=== PATIENT | male | born 1950 | race Hispanic/Latino ===

== ENCOUNTER 2018-09-12 09:30 | Observation (INO) | payer MEDICARE ==
[~2018-09-12] VITALS: Ht 162.6 cm; Wt 77.9 kg
[~2018-09-12 09:30] MED LIST: FERR325T22 PO; PANT40TA25 PO
[2018-09-13 09:16] LABS: EOSINOPHILS % (AUTO) 3.7 % (0.0-8.0); HEMATOCRIT 37.3 % (42-54); LYMPHOCYTES % (AUTO) 34.3 % (21.0-51.0); MEAN CORPUSCULAR HEMOGLOBIN 31.2 pg (27.0-33.0); MEAN CORPUSCULAR HGB CONC 33.3 g/dL (32.0-36.0); MEAN CORPUSCULAR VOLUME 93.9 fL (79-99); MONOCYTES % (AUTO) 15.8 % (3.0-13.0); NEUTROPHILS % (AUTO) 45.2 % (40.0-77.0); PLATELET COUNT (AUTO) 155 K/uL (130-400); RED BLOOD CELL COUNT(AUTO) 3.97 MIL/uL (4.50-6.20); RED CELL DISTRIBUTION WIDTH 19.8 % (11.0-15.5); WHITE BLOOD COUNT (AUTO) 5.7 K/uL (4.8-10.8)
[2018-09-13 09:29] LABS: INR 0.95 (0.85-1.15); PARTIAL THROMBOPLASTIN TIME 30.1 SEC (26.3-35.5)
[2018-09-13 09:36] LABS: ALBUMIN 3.8 g/dL (3.5-5.0); BILIRUBIN,TOTAL 0.6 mg/dL (0.2-1.0); CREATININE 5.8 mg/dL (0.5-1.5); POTASSIUM 5.3 mmol/L (3.5-5.1); TOTAL PROTEIN, SERUM 8.3 g/dL (6.0-8.3)
[2018-09-13 10:16] VITALS: BP 131/69
[2018-09-13] MEDS ORDERED: ATOR10TA69 PO (11:36)
[2018-09-13] MEDS ORDERED: FURO40TA5 PO (11:36)
[2018-09-13] MEDS ORDERED: HYDR-4153 PO (11:36)
[2018-09-13] MEDS ORDERED: AURYXIA PO (11:36)
[2018-09-13] MEDS ORDERED: CARV12.511 PO (11:36)
[2018-09-13] MEDS ORDERED: LOSA25TA41 PO (11:36)
[2018-09-13] MEDS ORDERED: IBUP-2070 PO (11:36)
--- NOTE | 2018-09-13 11:39 | NUR ---
ABNORMAL EKG NOTIFIED SHIVA (ANESTHESIOLOGIST) OF ABNORMAL EKG AND MEDICAL HISTORY. OK TO PROCEED WITH PROCEDURE SCHEDULED PER ANESTHESIOLOGIST.
[2018-09-14] VITALS (20 sets, daily range): BP systolic 111–189; BP diastolic 54–90
[2018-09-14] MEDS ORDERED: SODIUM CHLORIDE 0.9% 1000ML 1,000 ML IV ONE (06:04)
--- NOTE | 2018-09-14 06:20 | NUR ---
PUPIL OCCURRENCE: LEFT EYE PUPIL CLOUDY IMAGE OVER ENTIRE PUPIL. 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
[2018-09-14] MEDS: CEFAZOLIN SODIUM 1 GM VIAL ONE ×2 (06:21→14:15)
[2018-09-14] MEDS ORDERED: MIDAZOLAM HCL 1 MG/ML 2ML VIAL ONE (06:23)
[2018-09-14] MEDS ORDERED: ROCURONIUM 10MG/1ML SYR 10 MG/ML ML ONE (06:23)
[2018-09-14] MEDS ORDERED: PROPOFOL 10 MG/ML 20ML VIAL IV ONE (06:23)
[2018-09-14] MEDS ORDERED: LIDOCAINE PF 2% 5ML ABBOJECT ONE (06:23)
[2018-09-14] MEDS ORDERED: FENTANYL CITRATE PF 50 MCG/1 ML 2ML VIAL ONE (06:24)
--- NOTE | 2018-09-14 06:30 | NUR ---
POTENTIAL FOR INFECTION: SHAVED LEFT UPPER EXTREMITY PER KAM FIORE FOLLOWED BY WIPING WITH GINA: 2% CHLORHEXIDINE GLUCONATE CLOTH PATIENTS PRE-OP SKIN PREP.
[2018-09-14] MEDS ORDERED: ROPIVACAINE 0.5% 5MG/ML 30ML IJ ONE ×2 (06:50)
[2018-09-14] MEDS ORDERED: BUPIVACAINE/PF 0.5% 30ML VIAL ONE (07:13)
[2018-09-14] MEDS ORDERED: PAPAVERINE HCL 30 MG/ML 2ML VIAL ONE (07:51)
[2018-09-14] MEDS ORDERED: PHENYLEPHRINE HCL 10 MG/ML 1ML VIAL IV ONE (08:17)
[2018-09-14] MEDS ORDERED: EPHEDRINE SULFATE 50 MG/ML AMPULE ONE (08:25)
[2018-09-14] MEDS ORDERED: GLYCOPYRROLATE 1 MG/5 ML SYRINGE ONE (08:29)
[2018-09-14] MEDS ORDERED: SODIUM CHLORIDE 0.9% 10 ML VIAL ONE (08:29)
[2018-09-14] MEDS ORDERED: NEOSTIGMINE 5MG/5ML SYR IV ONE (08:29)
[2018-09-14] MEDS ORDERED: ONDANSETRON HCL 4 MG/2 ML VIAL ONE (08:57)
[2018-09-14] MEDS ORDERED: MEPERIDINE-PF 25 MG/ML SYG ONE ×2 (09:24→09:31)
--- NOTE | 2018-09-14 10:20 | NUR ---
RECEIVE PT RECEIVED FROM PACU VIA STRETCHER AWAKE ALERT ORIENTED X3. PT COMPLAINS OF NAUSEA, NO VOMITING NOTED. NO OTHER COMPLAINTS MADE. DRESSING TO LEFT UPPER ARM DRY AND INTACT, SITE SOFT, NO BLEEDING NO HEMATOMA NOTED. ABDOMEN SOFT, INCISION TO MID ABDOMEN INTACT, WITH DERMABOND, NO OOZING OR BLEEDING NOTED, NO SWELLING OR REDNESS NOTED. DRESSING TO LEFT ABDOMEN DRY AND INTACT, NO OOZING NOTED. ICE CHIPS OFFERED TO PT. Addendum: 09/14/18 at 1243 by GERARDO DOWLING RN RN CON'T: WILL CONTINUE TO MONITOR PT. CALL [facility] WITHIN REACH. WILL CALL FOR FAMILY TO COME IN TO ROOM.
--- NOTE | 2018-09-14 10:35 | NUR ---
ASSESS PT TOLERATING ICE CHIPS WELL. PT STATES HE IS NOT NAUSEATED ANYMORE. WILL CONTINUE TO MONITOR PT. DAUGHTER IN LAW IN ROOM.
--- NOTE | 2018-09-14 11:18 | NUR ---
NOTE PT FOR OBSERVATION TO MED SURG FLOOR. ORDERS OBTAINED FROM DR. BULLARD PER ROMAN PAUL,LEE ANN. FORKLIFT MECHANIC NOTIFIED, WAITING FOR ROOM.
--- NOTE | 2018-09-14 12:00 | NUR ---
REPORT REPORT GIVEN TO TALIA EWING.
--- NOTE | 2018-09-14 12:10 | NUR ---
TRANSFER PT TRANSFERRED TO ROOM 311. PT STABLE. NO COMPLAINTS MADE. ABDOMEN REMAINS SOFT. DRESSINGS TO LEFT UPPER ARM AND LEFT ABDOMEN REMAINS DRY AND INTACT, NO OOZING NOTED, INCISION MID ABDOMEN REMAINS INTACT, NO OOZING NOTED. PT RECEIVED BY TALIA EWING
--- NOTE | 2018-09-14 12:15 | NUR ---
TRANSFER RECEIVED REPORT FROM LEE ANN AVINA ( DAY PATIENT ). PATIENT TO RECEIVE DIALYSIS THEN MAY BE DISCHARGED PER DR. BULLARD. 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 PATIENT S/P PERITONEAL CATHETER REMOVAL AND LEFT AV FISTULA CREATION BY DR. BULLARD. PATIENT STABLE AT THIS TIME. ALL DRESSINGS DRY AND INTACT.
[2018-09-14] MEDS ORDERED: HEPARIN SODIUM 5000UNIT/ML 1ML VIAL ONE (17:22)
--- NOTE | 2018-09-14 21:00 | NUR ---
DISCHARGE-PATIENT COMPLETED DIALYSIS. DR. BULLARD WAS CALLED TO MAKE AWARE AND GAVE DISCHARGE ORDER. DISCHARGE INSTRUCTIONS EXPLAINED AND GIVEN TO PATIENT AND HIS DAUGHTER IN LAW. IV LINE WAS REMOVED. PATIENT AWAKE AND ALERT, NO ACUTE DISTRESS NOTED.
== END 2018-09-14 21:00 | disposition home or self-care (01) ==
LOC: EDSTATUS 09:30 → DAHIP 09-14 05:47 → 3BH 09-14 12:20
PROVIDERS: ADMIT Student in an Organized Health Care Education/Training Program; ATTEND Student in an Organized Health Care Education/Training Program
DX: I12.0 Hypertensive chronic kidney disease with stage 5 chronic kidney disease or end stage renal disease (principal); N18.6 End stage renal disease; D64.9 Anemia, unspecified; E11.21 Type 2 diabetes mellitus with diabetic nephropathy; E11.22 Type 2 diabetes mellitus with diabetic chronic kidney disease; K21.9 Gastro-esophageal reflux disease without esophagitis; E78.5 Hyperlipidemia, unspecified; E87.5 Hyperkalemia; H54.62 Unqualified visual loss, left eye, normal vision right eye; I25.10 Atherosclerotic heart disease of native coronary artery without angina pectoris; I42.9 Cardiomyopathy, unspecified; Z90.89 Acquired absence of other organs; Z91.19 Patient's noncompliance with other medical treatment and regimen; Z95.1 Presence of aortocoronary bypass graft; Z99.2 Dependence on renal dialysis; Z79.899 Other long term (current) drug therapy; Z88.8 Allergy status to other drugs, medicaments and biological substances; Z90.49 Acquired absence of other specified parts of digestive tract
CPT/HCPCS: 36590; 36821; G0257; 36415; 80053; 82948; 84132; 85025; 85610; 85730; 86850; 86900; 86901; 88300; 90935; 93005; A4606; G0378; J0690; J1644; J2001; J2175; J2250; J2370; J2405; J2440; J2704; J2710; J2795; J3010; J3490; J7030

== ENCOUNTER → 2018-12-28 | Outpatient (CLI) | payer MEDICARE ==
[~2018-12-28] MED LIST changes: +ATOR10TA69 PO; +AURYXIA PO; +CARV12.511 PO; +FURO40TA5 PO; +HONEY 1 APPL/ML TUBE TP ONE; +HYDR-4153 PO; +IBUP-2070 PO; +LOSA25TA41 PO
[2018-12-28 12:22] VITALS: BP 101/58
== END | disposition home or self-care (01) ==
LOC: WHH 09:45
PROVIDERS: ATTEND Podiatrist Foot & Ankle Surgery
DX: E11.621 Type 2 diabetes mellitus with foot ulcer (principal); L97.512 Non-pressure chronic ulcer of other part of right foot with fat layer exposed; E11.22 Type 2 diabetes mellitus with diabetic chronic kidney disease; N18.6 End stage renal disease; E11.21 Type 2 diabetes mellitus with diabetic nephropathy; I12.0 Hypertensive chronic kidney disease with stage 5 chronic kidney disease or end stage renal disease; I25.10 Atherosclerotic heart disease of native coronary artery without angina pectoris; I42.9 Cardiomyopathy, unspecified; K21.9 Gastro-esophageal reflux disease without esophagitis; E78.5 Hyperlipidemia, unspecified; H54.62 Unqualified visual loss, left eye, normal vision right eye; Z90.49 Acquired absence of other specified parts of digestive tract; Z88.8 Allergy status to other drugs, medicaments and biological substances; Z99.2 Dependence on renal dialysis; Z95.1 Presence of aortocoronary bypass graft
CPT/HCPCS: 11042; 11045; 82948; A4450; A6209

== ENCOUNTER → 2019-01-02 | Outpatient (CLI) | payer MEDICARE ==
[~2019-01-02] MED LIST changes: -HONEY 1 APPL/ML TUBE TP ONE
== END | disposition home or self-care (01) ==
LOC: WHH 09:45
PROVIDERS: ATTEND Family Medicine
DX: E11.621 Type 2 diabetes mellitus with foot ulcer (principal); L97.521 Non-pressure chronic ulcer of other part of left foot limited to breakdown of skin; E11.22 Type 2 diabetes mellitus with diabetic chronic kidney disease; I12.0 Hypertensive chronic kidney disease with stage 5 chronic kidney disease or end stage renal disease; N18.6 End stage renal disease; E11.21 Type 2 diabetes mellitus with diabetic nephropathy; I25.10 Atherosclerotic heart disease of native coronary artery without angina pectoris; I42.9 Cardiomyopathy, unspecified; E78.5 Hyperlipidemia, unspecified; K21.9 Gastro-esophageal reflux disease without esophagitis; H54.62 Unqualified visual loss, left eye, normal vision right eye; Z90.49 Acquired absence of other specified parts of digestive tract; Z95.1 Presence of aortocoronary bypass graft; Z88.8 Allergy status to other drugs, medicaments and biological substances; Z99.2 Dependence on renal dialysis
CPT/HCPCS: 82948; A6209; G0463

== ENCOUNTER → 2019-01-04 | Outpatient (CLI) | payer MEDICARE ==
[~2019-01-04] MED LIST changes: +LIDOCAINE HCL 1% 20 ML VIAL MISC ONE; +LIDOCAINE HCL 2% JELLY 5 ML TP ONE
[2019-01-04 13:51] VITALS: BP 110/63
== END | disposition home or self-care (01) ==
LOC: WHH 09:25
PROVIDERS: ATTEND Podiatrist Foot & Ankle Surgery
DX: T87.89 Other complications of amputation stump (principal); E11.621 Type 2 diabetes mellitus with foot ulcer; L97.512 Non-pressure chronic ulcer of other part of right foot with fat layer exposed; L97.521 Non-pressure chronic ulcer of other part of left foot limited to breakdown of skin; E11.22 Type 2 diabetes mellitus with diabetic chronic kidney disease; I12.0 Hypertensive chronic kidney disease with stage 5 chronic kidney disease or end stage renal disease; N18.6 End stage renal disease; E11.21 Type 2 diabetes mellitus with diabetic nephropathy; I25.10 Atherosclerotic heart disease of native coronary artery without angina pectoris; I42.9 Cardiomyopathy, unspecified; E78.5 Hyperlipidemia, unspecified; K21.9 Gastro-esophageal reflux disease without esophagitis; H54.62 Unqualified visual loss, left eye, normal vision right eye; Z90.49 Acquired absence of other specified parts of digestive tract; Z95.1 Presence of aortocoronary bypass graft; Z88.8 Allergy status to other drugs, medicaments and biological substances; Y83.5 Amputation of limb(s) as the cause of abnormal reaction of the patient, or of later complication, without mention of misadventure at the time of the procedure
CPT/HCPCS: 11042; 11045; 87070; 87077; 87186; A6209

== ENCOUNTER → 2019-01-11 | Outpatient (CLI) | payer MEDICARE ==
[~2019-01-11] MED LIST changes: -LIDOCAINE HCL 1% 20 ML VIAL MISC ONE; -LIDOCAINE HCL 2% JELLY 5 ML TP ONE
[2019-01-11 14:09] VITALS: BP 122/70
== END | disposition home or self-care (01) ==
LOC: WHH 09:40
PROVIDERS: ATTEND Podiatrist Foot & Ankle Surgery
DX: E11.621 Type 2 diabetes mellitus with foot ulcer (principal); L97.512 Non-pressure chronic ulcer of other part of right foot with fat layer exposed; L97.421 Non-pressure chronic ulcer of left heel and midfoot limited to breakdown of skin; E11.22 Type 2 diabetes mellitus with diabetic chronic kidney disease; I12.0 Hypertensive chronic kidney disease with stage 5 chronic kidney disease or end stage renal disease; N18.6 End stage renal disease; I25.10 Atherosclerotic heart disease of native coronary artery without angina pectoris; I42.9 Cardiomyopathy, unspecified; E78.5 Hyperlipidemia, unspecified; K21.9 Gastro-esophageal reflux disease without esophagitis; H54.62 Unqualified visual loss, left eye, normal vision right eye; Z99.2 Dependence on renal dialysis; Z95.1 Presence of aortocoronary bypass graft; Z90.49 Acquired absence of other specified parts of digestive tract; Z88.8 Allergy status to other drugs, medicaments and biological substances
CPT/HCPCS: 11042; 11045; A4649; A6209; L3260

== ENCOUNTER → 2019-01-18 | Outpatient (CLI) | payer MEDICARE ==
[2019-01-18 13:35] VITALS: BP 150/90
== END | disposition home or self-care (01) ==
LOC: WHH 09:45
PROVIDERS: ATTEND Podiatrist Foot & Ankle Surgery
DX: E11.621 Type 2 diabetes mellitus with foot ulcer (principal); L97.516 Non-pressure chronic ulcer of other part of right foot with bone involvement without evidence of necrosis; L97.421 Non-pressure chronic ulcer of left heel and midfoot limited to breakdown of skin; E11.22 Type 2 diabetes mellitus with diabetic chronic kidney disease; I12.0 Hypertensive chronic kidney disease with stage 5 chronic kidney disease or end stage renal disease; N18.6 End stage renal disease; I25.10 Atherosclerotic heart disease of native coronary artery without angina pectoris; I42.9 Cardiomyopathy, unspecified; E78.5 Hyperlipidemia, unspecified; K21.9 Gastro-esophageal reflux disease without esophagitis; H54.62 Unqualified visual loss, left eye, normal vision right eye; Z99.2 Dependence on renal dialysis; Z95.1 Presence of aortocoronary bypass graft; Z90.49 Acquired absence of other specified parts of digestive tract; Z88.8 Allergy status to other drugs, medicaments and biological substances
CPT/HCPCS: A4649; A6209; G0463

== ENCOUNTER → 2019-02-01 | Outpatient (CLI) | payer MEDICARE ==
[~2019-02-01] MED LIST changes: +LIDOCAINE HCL 2% JELLY 5 ML TP ONE; +LIDOCAINE HCL 4% LTA SOL 4 ML VIAL TP ONE
[2019-02-01 13:08] VITALS: BP 177/93
== END | disposition home or self-care (01) ==
LOC: WHH 10:30
PROVIDERS: ATTEND Podiatrist Foot & Ankle Surgery
DX: E11.621 Type 2 diabetes mellitus with foot ulcer (principal); L97.512 Non-pressure chronic ulcer of other part of right foot with fat layer exposed; L97.421 Non-pressure chronic ulcer of left heel and midfoot limited to breakdown of skin; E11.22 Type 2 diabetes mellitus with diabetic chronic kidney disease; I12.0 Hypertensive chronic kidney disease with stage 5 chronic kidney disease or end stage renal disease; N18.6 End stage renal disease; I25.10 Atherosclerotic heart disease of native coronary artery without angina pectoris; I42.9 Cardiomyopathy, unspecified; E78.5 Hyperlipidemia, unspecified; K21.9 Gastro-esophageal reflux disease without esophagitis; H54.62 Unqualified visual loss, left eye, normal vision right eye; Z99.2 Dependence on renal dialysis; Z95.1 Presence of aortocoronary bypass graft; Z90.49 Acquired absence of other specified parts of digestive tract; Z88.8 Allergy status to other drugs, medicaments and biological substances
CPT/HCPCS: 11042; 11045; A4649; A6209

== ENCOUNTER → 2019-02-15 | Outpatient (CLI) | payer MEDICARE ==
[~2019-02-15] MED LIST changes: -LIDOCAINE HCL 2% JELLY 5 ML TP ONE; -LIDOCAINE HCL 4% LTA SOL 4 ML VIAL TP ONE
[2019-02-15 14:00] VITALS: BP 128/62
== END | disposition home or self-care (01) ==
LOC: WHH 09:30
PROVIDERS: ATTEND Podiatrist Foot & Ankle Surgery
DX: E11.621 Type 2 diabetes mellitus with foot ulcer (principal); L97.512 Non-pressure chronic ulcer of other part of right foot with fat layer exposed; L97.421 Non-pressure chronic ulcer of left heel and midfoot limited to breakdown of skin; E11.22 Type 2 diabetes mellitus with diabetic chronic kidney disease; I12.0 Hypertensive chronic kidney disease with stage 5 chronic kidney disease or end stage renal disease; N18.6 End stage renal disease; I25.10 Atherosclerotic heart disease of native coronary artery without angina pectoris; I42.9 Cardiomyopathy, unspecified; E78.5 Hyperlipidemia, unspecified; K21.9 Gastro-esophageal reflux disease without esophagitis; H54.62 Unqualified visual loss, left eye, normal vision right eye; Z99.2 Dependence on renal dialysis; Z95.1 Presence of aortocoronary bypass graft; Z90.49 Acquired absence of other specified parts of digestive tract; Z88.8 Allergy status to other drugs, medicaments and biological substances
CPT/HCPCS: 11042; 11045; A4649; A6209

== ENCOUNTER → 2019-03-29 | Outpatient (CLI) | payer MEDICARE ==
[~2019-03-29] MED LIST changes: +LIDOCAINE/PRILOCAINE CREAM 5GM TUBE TP ONE
[2019-03-29 14:23] VITALS: BP 173/86
== END | disposition home or self-care (01) ==
LOC: WHH 09:45
PROVIDERS: ATTEND Podiatrist Foot & Ankle Surgery
DX: E11.621 Type 2 diabetes mellitus with foot ulcer (principal); L97.516 Non-pressure chronic ulcer of other part of right foot with bone involvement without evidence of necrosis; L97.421 Non-pressure chronic ulcer of left heel and midfoot limited to breakdown of skin; E11.22 Type 2 diabetes mellitus with diabetic chronic kidney disease; I12.0 Hypertensive chronic kidney disease with stage 5 chronic kidney disease or end stage renal disease; N18.6 End stage renal disease; K21.9 Gastro-esophageal reflux disease without esophagitis; I25.10 Atherosclerotic heart disease of native coronary artery without angina pectoris; I42.9 Cardiomyopathy, unspecified; H54.62 Unqualified visual loss, left eye, normal vision right eye; E78.5 Hyperlipidemia, unspecified; Z95.1 Presence of aortocoronary bypass graft; Z99.2 Dependence on renal dialysis; Z90.49 Acquired absence of other specified parts of digestive tract; Z88.8 Allergy status to other drugs, medicaments and biological substances
CPT/HCPCS: 11042; 11045; A6248; J3490

== ENCOUNTER → 2019-04-05 | Outpatient (CLI) | payer MEDICARE ==
[~2019-04-05] MED LIST changes: +LIDOCAINE HCL 2% JELLY 5 ML TP ONE; -LIDOCAINE/PRILOCAINE CREAM 5GM TUBE TP ONE
[2019-04-05 13:33] VITALS: BP 133/70
[2019-04-06 13:34] LABS: HEMOGLOBIN A1C 4.9 % (4.0-6.0)
== END | disposition home or self-care (01) ==
LOC: WHH 09:45
PROVIDERS: ATTEND Podiatrist Foot & Ankle Surgery
DX: E11.621 Type 2 diabetes mellitus with foot ulcer (principal); L97.512 Non-pressure chronic ulcer of other part of right foot with fat layer exposed; L97.421 Non-pressure chronic ulcer of left heel and midfoot limited to breakdown of skin; E11.22 Type 2 diabetes mellitus with diabetic chronic kidney disease; I12.0 Hypertensive chronic kidney disease with stage 5 chronic kidney disease or end stage renal disease; N18.6 End stage renal disease; I25.10 Atherosclerotic heart disease of native coronary artery without angina pectoris; I42.9 Cardiomyopathy, unspecified; K21.9 Gastro-esophageal reflux disease without esophagitis; E78.5 Hyperlipidemia, unspecified; H54.62 Unqualified visual loss, left eye, normal vision right eye; Z95.0 Presence of cardiac pacemaker; Z95.1 Presence of aortocoronary bypass graft; Z88.8 Allergy status to other drugs, medicaments and biological substances; Z88.6 Allergy status to analgesic agent
CPT/HCPCS: 11042; 11045; 83036

== ENCOUNTER → 2019-04-06 | Outpatient (CLI) | payer MEDICARE | END | disposition home or self-care (01) | LOC: WHH 09:00 | PROVIDERS: ATTEND Podiatrist Foot & Ankle Surgery | DX: E11.621 Type 2 diabetes mellitus with foot ulcer (principal); L97.511 Non-pressure chronic ulcer of other part of right foot limited to breakdown of skin; L97.421 Non-pressure chronic ulcer of left heel and midfoot limited to breakdown of skin; E11.22 Type 2 diabetes mellitus with diabetic chronic kidney disease; I12.0 Hypertensive chronic kidney disease with stage 5 chronic kidney disease or end stage renal disease; N18.6 End stage renal disease; I25.10 Atherosclerotic heart disease of native coronary artery without angina pectoris; K21.9 Gastro-esophageal reflux disease without esophagitis; H54.62 Unqualified visual loss, left eye, normal vision right eye; E78.5 Hyperlipidemia, unspecified; I42.9 Cardiomyopathy, unspecified; Z95.1 Presence of aortocoronary bypass graft; Z99.2 Dependence on renal dialysis; Z88.8 Allergy status to other drugs, medicaments and biological substances; Z90.49 Acquired absence of other specified parts of digestive tract | CPT/HCPCS: 93922; G0463 ==

== ENCOUNTER → 2019-04-10 | Outpatient (CLI) | payer MEDICARE ==
[~2019-04-10] MED LIST changes: -LIDOCAINE HCL 2% JELLY 5 ML TP ONE
== END | disposition home or self-care (01) ==
LOC: WHH 09:15
PROVIDERS: ATTEND Family Medicine
DX: E11.621 Type 2 diabetes mellitus with foot ulcer (principal); L97.421 Non-pressure chronic ulcer of left heel and midfoot limited to breakdown of skin; L97.511 Non-pressure chronic ulcer of other part of right foot limited to breakdown of skin; E11.22 Type 2 diabetes mellitus with diabetic chronic kidney disease; I12.0 Hypertensive chronic kidney disease with stage 5 chronic kidney disease or end stage renal disease; N18.6 End stage renal disease; I25.10 Atherosclerotic heart disease of native coronary artery without angina pectoris; I42.9 Cardiomyopathy, unspecified; K21.9 Gastro-esophageal reflux disease without esophagitis; E78.5 Hyperlipidemia, unspecified; H54.62 Unqualified visual loss, left eye, normal vision right eye; Z95.1 Presence of aortocoronary bypass graft; Z99.2 Dependence on renal dialysis; Z88.8 Allergy status to other drugs, medicaments and biological substances; Z88.6 Allergy status to analgesic agent; Z90.49 Acquired absence of other specified parts of digestive tract
CPT/HCPCS: 82948

== ENCOUNTER → 2019-04-11 | Outpatient (CLI) | payer MEDICARE ==
[2019-04-11 12:08] VITALS: BP_SYST 120; BP_SYST 149; BP_DIAS 69; BP_DIAS 79
== END | disposition home or self-care (01) ==
LOC: WHH 09:00
PROVIDERS: ATTEND Surgery
DX: E11.621 Type 2 diabetes mellitus with foot ulcer (principal); L97.511 Non-pressure chronic ulcer of other part of right foot limited to breakdown of skin; L89.629 Pressure ulcer of left heel, unspecified stage; L97.421 Non-pressure chronic ulcer of left heel and midfoot limited to breakdown of skin; E11.22 Type 2 diabetes mellitus with diabetic chronic kidney disease; I12.0 Hypertensive chronic kidney disease with stage 5 chronic kidney disease or end stage renal disease; N18.6 End stage renal disease; I25.10 Atherosclerotic heart disease of native coronary artery without angina pectoris; I42.9 Cardiomyopathy, unspecified; K21.9 Gastro-esophageal reflux disease without esophagitis; E78.5 Hyperlipidemia, unspecified; H54.62 Unqualified visual loss, left eye, normal vision right eye; Z88.6 Allergy status to analgesic agent; Z95.1 Presence of aortocoronary bypass graft; Z90.49 Acquired absence of other specified parts of digestive tract
CPT/HCPCS: 82948 ×2; G0277

== ENCOUNTER → 2019-04-12 | Outpatient (CLI) | payer MEDICARE ==
[2019-04-12 12:59] VITALS: BP 143/89
[2019-04-12 13:43] VITALS: BP 138/78
== END | disposition home or self-care (01) ==
LOC: WHH 09:00
PROVIDERS: ATTEND Podiatrist Foot & Ankle Surgery
DX: E11.621 Type 2 diabetes mellitus with foot ulcer (principal); L97.511 Non-pressure chronic ulcer of other part of right foot limited to breakdown of skin; L97.421 Non-pressure chronic ulcer of left heel and midfoot limited to breakdown of skin; E11.22 Type 2 diabetes mellitus with diabetic chronic kidney disease; I12.0 Hypertensive chronic kidney disease with stage 5 chronic kidney disease or end stage renal disease; N18.6 End stage renal disease; I25.10 Atherosclerotic heart disease of native coronary artery without angina pectoris; I42.9 Cardiomyopathy, unspecified; K21.9 Gastro-esophageal reflux disease without esophagitis; E78.5 Hyperlipidemia, unspecified; H54.62 Unqualified visual loss, left eye, normal vision right eye; Z95.1 Presence of aortocoronary bypass graft; Z88.6 Allergy status to analgesic agent; Z88.8 Allergy status to other drugs, medicaments and biological substances; Z90.49 Acquired absence of other specified parts of digestive tract; Z99.2 Dependence on renal dialysis
CPT/HCPCS: 82948 ×3; G0277

== ENCOUNTER → 2019-04-13 | Outpatient (CLI) | payer MEDICARE ==
[2019-04-13 12:41] VITALS: BP_SYST 138; BP_SYST 158; BP_DIAS 68; BP_DIAS 70
== END | disposition home or self-care (01) ==
LOC: WHH 09:00
PROVIDERS: ATTEND Surgery
DX: E11.621 Type 2 diabetes mellitus with foot ulcer (principal); L97.511 Non-pressure chronic ulcer of other part of right foot limited to breakdown of skin; L89.629 Pressure ulcer of left heel, unspecified stage; L97.421 Non-pressure chronic ulcer of left heel and midfoot limited to breakdown of skin; E11.22 Type 2 diabetes mellitus with diabetic chronic kidney disease; I12.0 Hypertensive chronic kidney disease with stage 5 chronic kidney disease or end stage renal disease; N18.6 End stage renal disease; I25.10 Atherosclerotic heart disease of native coronary artery without angina pectoris; K21.9 Gastro-esophageal reflux disease without esophagitis; I42.9 Cardiomyopathy, unspecified; E78.5 Hyperlipidemia, unspecified; H54.62 Unqualified visual loss, left eye, normal vision right eye; Z99.2 Dependence on renal dialysis; Z95.1 Presence of aortocoronary bypass graft; Z88.8 Allergy status to other drugs, medicaments and biological substances; Z88.6 Allergy status to analgesic agent; Z90.49 Acquired absence of other specified parts of digestive tract
CPT/HCPCS: 82948 ×2; G0277

== ENCOUNTER → 2019-04-14 | Outpatient (CLI) | payer MEDICARE | END | disposition home or self-care (01) | LOC: WHH 09:00 | PROVIDERS: ATTEND Family Medicine | DX: E11.621 Type 2 diabetes mellitus with foot ulcer (principal); L97.511 Non-pressure chronic ulcer of other part of right foot limited to breakdown of skin; L97.421 Non-pressure chronic ulcer of left heel and midfoot limited to breakdown of skin; E11.22 Type 2 diabetes mellitus with diabetic chronic kidney disease; I12.0 Hypertensive chronic kidney disease with stage 5 chronic kidney disease or end stage renal disease; N18.6 End stage renal disease; E11.51 Type 2 diabetes mellitus with diabetic peripheral angiopathy without gangrene; I25.10 Atherosclerotic heart disease of native coronary artery without angina pectoris; I42.9 Cardiomyopathy, unspecified; K21.9 Gastro-esophageal reflux disease without esophagitis; E78.5 Hyperlipidemia, unspecified; H54.62 Unqualified visual loss, left eye, normal vision right eye; Z95.1 Presence of aortocoronary bypass graft; Z95.0 Presence of cardiac pacemaker; Z90.49 Acquired absence of other specified parts of digestive tract; Z88.6 Allergy status to analgesic agent; Z88.8 Allergy status to other drugs, medicaments and biological substances | CPT/HCPCS: 82948 ×2; G0463 ==

== ENCOUNTER → 2019-04-17 | Outpatient (CLI) | payer MEDICARE | END | disposition home or self-care (01) | LOC: WHH 08:45 | PROVIDERS: ATTEND Family Medicine | DX: E11.621 Type 2 diabetes mellitus with foot ulcer (principal); L97.511 Non-pressure chronic ulcer of other part of right foot limited to breakdown of skin; L89.629 Pressure ulcer of left heel, unspecified stage; L97.421 Non-pressure chronic ulcer of left heel and midfoot limited to breakdown of skin; E11.22 Type 2 diabetes mellitus with diabetic chronic kidney disease; I12.0 Hypertensive chronic kidney disease with stage 5 chronic kidney disease or end stage renal disease; N18.6 End stage renal disease; I25.10 Atherosclerotic heart disease of native coronary artery without angina pectoris; I42.9 Cardiomyopathy, unspecified; K21.9 Gastro-esophageal reflux disease without esophagitis; E78.5 Hyperlipidemia, unspecified; H54.62 Unqualified visual loss, left eye, normal vision right eye; Z88.6 Allergy status to analgesic agent; Z88.8 Allergy status to other drugs, medicaments and biological substances; Z95.0 Presence of cardiac pacemaker; Z95.1 Presence of aortocoronary bypass graft; Z90.49 Acquired absence of other specified parts of digestive tract | CPT/HCPCS: 82948 ×2; G0463 ==

== ENCOUNTER → 2019-04-19 | Outpatient (CLI) | payer MEDICARE ==
[2019-04-19 15:49] VITALS: BP 168/103
== END | disposition home or self-care (01) ==
LOC: WHH 08:30
PROVIDERS: ATTEND Podiatrist Foot & Ankle Surgery
DX: E11.621 Type 2 diabetes mellitus with foot ulcer (principal); L97.516 Non-pressure chronic ulcer of other part of right foot with bone involvement without evidence of necrosis; L97.421 Non-pressure chronic ulcer of left heel and midfoot limited to breakdown of skin; E11.22 Type 2 diabetes mellitus with diabetic chronic kidney disease; I12.0 Hypertensive chronic kidney disease with stage 5 chronic kidney disease or end stage renal disease; N18.6 End stage renal disease; I25.10 Atherosclerotic heart disease of native coronary artery without angina pectoris; I42.9 Cardiomyopathy, unspecified; K21.9 Gastro-esophageal reflux disease without esophagitis; H54.62 Unqualified visual loss, left eye, normal vision right eye; E78.5 Hyperlipidemia, unspecified; Z95.1 Presence of aortocoronary bypass graft; Z95.0 Presence of cardiac pacemaker; Z88.6 Allergy status to analgesic agent; Z88.8 Allergy status to other drugs, medicaments and biological substances; Z90.49 Acquired absence of other specified parts of digestive tract
CPT/HCPCS: 11042; 11045; A6248

== ENCOUNTER → 2019-04-26 | Outpatient (CLI) | payer MEDICARE ==
[2019-04-26 14:23] VITALS: BP 165/83
== END | disposition home or self-care (01) ==
LOC: WHH 09:20
PROVIDERS: ATTEND Podiatrist Foot & Ankle Surgery
DX: T81.89XA Other complications of procedures, not elsewhere classified, initial encounter (principal); E11.621 Type 2 diabetes mellitus with foot ulcer; L97.511 Non-pressure chronic ulcer of other part of right foot limited to breakdown of skin; L89.629 Pressure ulcer of left heel, unspecified stage; L97.421 Non-pressure chronic ulcer of left heel and midfoot limited to breakdown of skin; E11.22 Type 2 diabetes mellitus with diabetic chronic kidney disease; I12.0 Hypertensive chronic kidney disease with stage 5 chronic kidney disease or end stage renal disease; N18.6 End stage renal disease; E11.51 Type 2 diabetes mellitus with diabetic peripheral angiopathy without gangrene; I25.10 Atherosclerotic heart disease of native coronary artery without angina pectoris; I42.9 Cardiomyopathy, unspecified; K21.9 Gastro-esophageal reflux disease without esophagitis; E78.5 Hyperlipidemia, unspecified; H54.62 Unqualified visual loss, left eye, normal vision right eye; Z95.1 Presence of aortocoronary bypass graft; Z95.0 Presence of cardiac pacemaker; Z90.49 Acquired absence of other specified parts of digestive tract; Z88.6 Allergy status to analgesic agent; Z88.8 Allergy status to other drugs, medicaments and biological substances; Y83.8 Other surgical procedures as the cause of abnormal reaction of the patient, or of later complication, without mention of misadventure at the time of the procedure; Y92.89 Other specified places as the place of occurrence of the external cause
CPT/HCPCS: G0463

== ENCOUNTER → 2019-05-03 | Outpatient (CLI) | payer MEDICARE ==
[~2019-05-03] MED LIST changes: +LIDOCAINE HCL 1% 20 ML VIAL MISC ONE; +LIDOCAINE HCL 2% JELLY 5 ML TP ONE
[2019-05-03 13:43] VITALS: BP 146/75
== END | disposition home or self-care (01) ==
LOC: WHH 08:00
PROVIDERS: ATTEND Podiatrist Foot & Ankle Surgery
DX: T81.41XD Infection following a procedure, superficial incisional surgical site, subsequent encounter (principal); E11.621 Type 2 diabetes mellitus with foot ulcer; L97.511 Non-pressure chronic ulcer of other part of right foot limited to breakdown of skin; L89.629 Pressure ulcer of left heel, unspecified stage; L97.421 Non-pressure chronic ulcer of left heel and midfoot limited to breakdown of skin; E11.22 Type 2 diabetes mellitus with diabetic chronic kidney disease; I12.0 Hypertensive chronic kidney disease with stage 5 chronic kidney disease or end stage renal disease; N18.6 End stage renal disease; E11.51 Type 2 diabetes mellitus with diabetic peripheral angiopathy without gangrene; I25.10 Atherosclerotic heart disease of native coronary artery without angina pectoris; I42.9 Cardiomyopathy, unspecified; K21.9 Gastro-esophageal reflux disease without esophagitis; E78.5 Hyperlipidemia, unspecified; H54.62 Unqualified visual loss, left eye, normal vision right eye; Z95.1 Presence of aortocoronary bypass graft; Z95.0 Presence of cardiac pacemaker; Z90.49 Acquired absence of other specified parts of digestive tract; Z88.6 Allergy status to analgesic agent; Z88.8 Allergy status to other drugs, medicaments and biological substances; Y83.8 Other surgical procedures as the cause of abnormal reaction of the patient, or of later complication, without mention of misadventure at the time of the procedure
CPT/HCPCS: 11043; 11046

== ENCOUNTER → 2019-05-10 | Outpatient (CLI) | payer MEDICARE ==
[~2019-05-10] MED LIST changes: -LIDOCAINE HCL 1% 20 ML VIAL MISC ONE; -LIDOCAINE HCL 2% JELLY 5 ML TP ONE
[2019-05-10 14:56] VITALS: BP 172/79
== END | disposition home or self-care (01) ==
LOC: WHH 08:30
PROVIDERS: ATTEND Podiatrist Foot & Ankle Surgery
DX: E11.621 Type 2 diabetes mellitus with foot ulcer (principal); L97.511 Non-pressure chronic ulcer of other part of right foot limited to breakdown of skin; L89.620 Pressure ulcer of left heel, unstageable; L97.421 Non-pressure chronic ulcer of left heel and midfoot limited to breakdown of skin; L97.521 Non-pressure chronic ulcer of other part of left foot limited to breakdown of skin; E11.22 Type 2 diabetes mellitus with diabetic chronic kidney disease; I12.0 Hypertensive chronic kidney disease with stage 5 chronic kidney disease or end stage renal disease; N18.6 End stage renal disease; E11.51 Type 2 diabetes mellitus with diabetic peripheral angiopathy without gangrene; I25.10 Atherosclerotic heart disease of native coronary artery without angina pectoris; I42.9 Cardiomyopathy, unspecified; K21.9 Gastro-esophageal reflux disease without esophagitis; E78.5 Hyperlipidemia, unspecified; H54.62 Unqualified visual loss, left eye, normal vision right eye; Z95.1 Presence of aortocoronary bypass graft; Z95.0 Presence of cardiac pacemaker; Z90.49 Acquired absence of other specified parts of digestive tract; Z88.6 Allergy status to analgesic agent; Z88.8 Allergy status to other drugs, medicaments and biological substances
CPT/HCPCS: G0463

== ENCOUNTER → 2019-05-17 | Outpatient (CLI) | payer MEDICARE ==
[~2019-05-17] MED LIST changes: +LIDOCAINE HCL 1% 20 ML VIAL MISC ONE
[2019-05-17 16:46] VITALS: BP 160/82
== END | disposition home or self-care (01) ==
LOC: WHH 09:30
PROVIDERS: ATTEND Podiatrist Foot & Ankle Surgery
DX: T87.89 Other complications of amputation stump (principal); E11.621 Type 2 diabetes mellitus with foot ulcer; L97.512 Non-pressure chronic ulcer of other part of right foot with fat layer exposed; L97.521 Non-pressure chronic ulcer of other part of left foot limited to breakdown of skin; E11.622 Type 2 diabetes mellitus with other skin ulcer; L97.421 Non-pressure chronic ulcer of left heel and midfoot limited to breakdown of skin; I12.0 Hypertensive chronic kidney disease with stage 5 chronic kidney disease or end stage renal disease; E11.22 Type 2 diabetes mellitus with diabetic chronic kidney disease; N18.6 End stage renal disease; I25.10 Atherosclerotic heart disease of native coronary artery without angina pectoris; K21.9 Gastro-esophageal reflux disease without esophagitis; I42.9 Cardiomyopathy, unspecified; E78.5 Hyperlipidemia, unspecified; Z90.49 Acquired absence of other specified parts of digestive tract; Z88.6 Allergy status to analgesic agent; Z88.8 Allergy status to other drugs, medicaments and biological substances; Z95.1 Presence of aortocoronary bypass graft; Z95.0 Presence of cardiac pacemaker; Y83.5 Amputation of limb(s) as the cause of abnormal reaction of the patient, or of later complication, without mention of misadventure at the time of the procedure
CPT/HCPCS: 11042; 11045

== ENCOUNTER → 2019-05-24 | Outpatient (CLI) | payer MEDICARE ==
[~2019-05-24] MED LIST changes: -LIDOCAINE HCL 1% 20 ML VIAL MISC ONE
[2019-05-24 11:59] VITALS: BP 135/68
== END | disposition home or self-care (01) ==
LOC: WHH 10:00
PROVIDERS: ATTEND Podiatrist Foot & Ankle Surgery
DX: E11.621 Type 2 diabetes mellitus with foot ulcer (principal); E11.622 Type 2 diabetes mellitus with other skin ulcer; L97.511 Non-pressure chronic ulcer of other part of right foot limited to breakdown of skin; L97.421 Non-pressure chronic ulcer of left heel and midfoot limited to breakdown of skin; L97.521 Non-pressure chronic ulcer of other part of left foot limited to breakdown of skin; E11.22 Type 2 diabetes mellitus with diabetic chronic kidney disease; I12.0 Hypertensive chronic kidney disease with stage 5 chronic kidney disease or end stage renal disease; N18.6 End stage renal disease; E11.51 Type 2 diabetes mellitus with diabetic peripheral angiopathy without gangrene; I25.10 Atherosclerotic heart disease of native coronary artery without angina pectoris; I42.9 Cardiomyopathy, unspecified; K21.9 Gastro-esophageal reflux disease without esophagitis; H54.62 Unqualified visual loss, left eye, normal vision right eye; E78.5 Hyperlipidemia, unspecified; Z95.1 Presence of aortocoronary bypass graft; Z95.0 Presence of cardiac pacemaker; Z90.49 Acquired absence of other specified parts of digestive tract; Z88.6 Allergy status to analgesic agent; Z88.8 Allergy status to other drugs, medicaments and biological substances
CPT/HCPCS: G0463

== ENCOUNTER → 2019-06-07 | Outpatient (CLI) | payer MEDICARE ==
[2019-06-07 09:52] VITALS: BP 158/90
== END | disposition home or self-care (01) ==
LOC: WHH 09:00
PROVIDERS: ATTEND Podiatrist Foot & Ankle Surgery
DX: T87.89 Other complications of amputation stump (principal); E11.621 Type 2 diabetes mellitus with foot ulcer; L97.511 Non-pressure chronic ulcer of other part of right foot limited to breakdown of skin; I70.244 Atherosclerosis of native arteries of left leg with ulceration of heel and midfoot; L89.622 Pressure ulcer of left heel, stage 2; L97.421 Non-pressure chronic ulcer of left heel and midfoot limited to breakdown of skin; I70.245 Atherosclerosis of native arteries of left leg with ulceration of other part of foot; L97.521 Non-pressure chronic ulcer of other part of left foot limited to breakdown of skin; E11.22 Type 2 diabetes mellitus with diabetic chronic kidney disease; I12.0 Hypertensive chronic kidney disease with stage 5 chronic kidney disease or end stage renal disease; N18.6 End stage renal disease; E11.51 Type 2 diabetes mellitus with diabetic peripheral angiopathy without gangrene; E78.5 Hyperlipidemia, unspecified; I25.10 Atherosclerotic heart disease of native coronary artery without angina pectoris; I42.9 Cardiomyopathy, unspecified; K21.9 Gastro-esophageal reflux disease without esophagitis; H54.62 Unqualified visual loss, left eye, normal vision right eye; Z95.1 Presence of aortocoronary bypass graft; Z95.0 Presence of cardiac pacemaker; Z90.49 Acquired absence of other specified parts of digestive tract; Z88.6 Allergy status to analgesic agent; Z88.8 Allergy status to other drugs, medicaments and biological substances; Y83.5 Amputation of limb(s) as the cause of abnormal reaction of the patient, or of later complication, without mention of misadventure at the time of the procedure
CPT/HCPCS: 87070; 87077 ×2; 87186 ×2; G0463

== ENCOUNTER → 2019-06-21 | Outpatient (CLI) | payer MEDICARE ==
[2019-06-21 09:44] VITALS: BP 166/100
== END | disposition home or self-care (01) ==
LOC: WHH 08:30
PROVIDERS: ATTEND Podiatrist Foot & Ankle Surgery
DX: T87.89 Other complications of amputation stump (principal); E11.621 Type 2 diabetes mellitus with foot ulcer; L97.512 Non-pressure chronic ulcer of other part of right foot with fat layer exposed; I70.244 Atherosclerosis of native arteries of left leg with ulceration of heel and midfoot; L89.622 Pressure ulcer of left heel, stage 2; L97.421 Non-pressure chronic ulcer of left heel and midfoot limited to breakdown of skin; I70.245 Atherosclerosis of native arteries of left leg with ulceration of other part of foot; L97.521 Non-pressure chronic ulcer of other part of left foot limited to breakdown of skin; E11.22 Type 2 diabetes mellitus with diabetic chronic kidney disease; I12.0 Hypertensive chronic kidney disease with stage 5 chronic kidney disease or end stage renal disease; N18.6 End stage renal disease; E11.51 Type 2 diabetes mellitus with diabetic peripheral angiopathy without gangrene; E78.5 Hyperlipidemia, unspecified; I25.10 Atherosclerotic heart disease of native coronary artery without angina pectoris; K21.9 Gastro-esophageal reflux disease without esophagitis; I42.9 Cardiomyopathy, unspecified; H54.62 Unqualified visual loss, left eye, normal vision right eye; Z95.1 Presence of aortocoronary bypass graft; Z95.0 Presence of cardiac pacemaker; Z90.49 Acquired absence of other specified parts of digestive tract; Z88.6 Allergy status to analgesic agent; Z88.8 Allergy status to other drugs, medicaments and biological substances; Y83.5 Amputation of limb(s) as the cause of abnormal reaction of the patient, or of later complication, without mention of misadventure at the time of the procedure
CPT/HCPCS: 11042; 11045

== ENCOUNTER → 2019-07-05 | Outpatient (CLI) | payer MEDICARE ==
[~2019-07-05] MED LIST changes: +HONEY 1 APPL/ML TUBE TP ONE; +LIDOCAINE HCL 4% LTA SOL 4 ML VIAL TP ONE
[2019-07-05 12:52] VITALS: BP 171/100
== END | disposition home or self-care (01) ==
LOC: WHH 08:00
PROVIDERS: ATTEND Podiatrist Foot & Ankle Surgery
DX: T87.89 Other complications of amputation stump (principal); E11.621 Type 2 diabetes mellitus with foot ulcer; L97.511 Non-pressure chronic ulcer of other part of right foot limited to breakdown of skin; I70.244 Atherosclerosis of native arteries of left leg with ulceration of heel and midfoot; L89.622 Pressure ulcer of left heel, stage 2; L97.421 Non-pressure chronic ulcer of left heel and midfoot limited to breakdown of skin; I70.245 Atherosclerosis of native arteries of left leg with ulceration of other part of foot; E11.22 Type 2 diabetes mellitus with diabetic chronic kidney disease; I12.0 Hypertensive chronic kidney disease with stage 5 chronic kidney disease or end stage renal disease; N18.6 End stage renal disease; E11.51 Type 2 diabetes mellitus with diabetic peripheral angiopathy without gangrene; E78.5 Hyperlipidemia, unspecified; I25.10 Atherosclerotic heart disease of native coronary artery without angina pectoris; K21.9 Gastro-esophageal reflux disease without esophagitis; I42.9 Cardiomyopathy, unspecified; H54.62 Unqualified visual loss, left eye, normal vision right eye; Z95.1 Presence of aortocoronary bypass graft; Z95.0 Presence of cardiac pacemaker; Z90.49 Acquired absence of other specified parts of digestive tract; Z88.6 Allergy status to analgesic agent; Z88.8 Allergy status to other drugs, medicaments and biological substances; Y83.5 Amputation of limb(s) as the cause of abnormal reaction of the patient, or of later complication, without mention of misadventure at the time of the procedure
CPT/HCPCS: G0463

== ENCOUNTER 2019-07-07 10:15 | Inpatient (IN) | payer MEDICARE ==
[~2019-07-07] VITALS: Ht 160 cm; Wt 64.0 kg
[~2019-07-07 10:15] MED LIST changes: -HONEY 1 APPL/ML TUBE TP ONE; -LIDOCAINE HCL 4% LTA SOL 4 ML VIAL TP ONE; -PANT40TA25 PO; +PANT40TA54 PO
[2019-07-07 14:59] LABS: BASOPHILS % (AUTO) 1.2 % (0.0-5.0); EOSINOPHILS % (AUTO) 4.7 % (0.0-8.0); HEMATOCRIT 34.2 % (42-54); LYMPHOCYTES % (AUTO) 36.3 % (21.0-51.0); MEAN CORPUSCULAR HEMOGLOBIN 27.9 pg (27.0-33.0); MEAN CORPUSCULAR HGB CONC 31.3 g/dL (32.0-36.0); MEAN CORPUSCULAR VOLUME 89.3 fL (79-99); MONOCYTES % (AUTO) 11.4 % (3.0-13.0); NEUTROPHILS % (AUTO) 46.2 % (40.0-77.0); PLATELET COUNT (AUTO) 191 K/uL (130-400); RED BLOOD CELL COUNT(AUTO) 3.83 MIL/uL (4.50-6.20); RED CELL DISTRIBUTION WIDTH 16.1 % (11.0-15.5); WHITE BLOOD COUNT (AUTO) 6.4 K/uL (4.8-10.8)
[2019-07-07 15:12] LABS: INR 0.99 (0.85-1.15); PARTIAL THROMBOPLASTIN TIME 31.5 SEC (26.3-35.5); PROTHROMBIN TIME 10.7 SEC (9.6-11.6)
[2019-07-07 15:22] LABS: ALBUMIN 3.1 g/dL (3.5-5.0); BILIRUBIN,TOTAL 0.4 mg/dL (0.2-1.0); CREATININE 3.8 mg/dL (0.5-1.5); POTASSIUM 4.3 mmol/L (3.5-5.1); TOTAL PROTEIN, SERUM 8.4 g/dL (6.0-8.3)
[2019-07-07 15:36] VITALS: BP 158/77
[2019-07-07 15:53] LABS: HEMOGLOBIN A1C 4.8 % (4.0-6.0)
[2019-07-10] VITALS (35 sets, daily range): BP systolic 109–199; BP diastolic 59–89
[2019-07-10] MEDS ORDERED: CEFUROXIME SODIUM 1.5 GM VIAL IVP PRN (06:00)
[2019-07-10] MEDS ORDERED: LACTATED RINGERS 1000ML 0 ML IV ONE (07:08)
[2019-07-10 07:10] LABS: HEMATOCRIT 31.3 % (42-54); MEAN CORPUSCULAR HEMOGLOBIN 28.9 pg (27.0-33.0); MEAN CORPUSCULAR HGB CONC 32.3 g/dL (32.0-36.0); MEAN CORPUSCULAR VOLUME 89.7 fL (79-99); RED BLOOD CELL COUNT(AUTO) 3.49 MIL/uL (4.50-6.20); RED CELL DISTRIBUTION WIDTH 16.6 % (11.0-15.5); WHITE BLOOD COUNT (AUTO) 6.7 K/uL (4.8-10.8)
[2019-07-10] MEDS ORDERED: SODIUM CHLORIDE 0.9% 1000ML 1,000 ML IV ONE (07:10)
[2019-07-10] MEDS ORDERED: DEXAMETHASONE SOD PHOSPHATE 10MG/ML 1ML VIAL ONE (07:14)
[2019-07-10] MEDS ORDERED: ONDANSETRON HCL 4 MG/2 ML VIAL ONE ×2 (07:14→22:05)
[2019-07-10] MEDS ORDERED: LIDOCAINE PF 2% 5ML ABBOJECT ONE (07:14)
[2019-07-10] MEDS ORDERED: FENTANYL CITRATE PF 50 MCG/1 ML 2ML VIAL ONE (07:15)
[2019-07-10] MEDS ORDERED: GLYCOPYRROLATE 1 MG/5 ML SYRINGE ONE ×2 (07:15→12:54)
[2019-07-10] MEDS ORDERED: MIDAZOLAM HCL 1 MG/ML 2ML VIAL ONE (07:16)
[2019-07-10] MEDS ORDERED: NEOSTIGMINE 5MG/5ML SYR IV ONE ×2 (07:16→12:54)
[2019-07-10] MEDS ORDERED: PROPOFOL 10 MG/ML 20ML VIAL IV ONE ×2 (07:16→13:08)
[2019-07-10] MEDS ORDERED: ROCURONIUM 10MG/1ML SYR 10 MG/ML ML ONE (07:17)
[2019-07-10] MEDS ORDERED: EPHEDRINE SULFATE 50 MG/ML AMPULE ONE (07:23)
[2019-07-10 07:32] LABS: CREATININE 6.5 mg/dL (0.5-1.5); POTASSIUM 5.1 mmol/L (3.5-5.1)
[2019-07-10 07:37] LABS: BILIRUBIN,TOTAL 0.4 mg/dL (0.2-1.0); TOTAL PROTEIN, SERUM 7.7 g/dL (6.0-8.3)
[2019-07-10 07:39] LABS: HEMOGLOBIN A1C 4.7 % (4.0-6.0)
[2019-07-10 07:43] LABS: INR 1.03 (0.85-1.15); PARTIAL THROMBOPLASTIN TIME 32.7 SEC (26.3-35.5); PROTHROMBIN TIME 11.1 SEC (9.6-11.6)
[2019-07-10] MEDS ORDERED: FERR-82 PO ×2 (08:15)
[2019-07-10] MEDS ORDERED: TRAM50TA4 PO ×2 (08:15)
[2019-07-10] MEDS ORDERED: HYDR-4153 PO ×2 (08:15)
[2019-07-10] MEDS ORDERED: PANT40TA PO ×2 (08:15)
[2019-07-10] MEDS ORDERED: ATOR10TA69 PO ×2 (08:15)
[2019-07-10] MEDS ORDERED: FURO40TA5 PO ×2 (08:15)
[2019-07-10] MEDS ORDERED: KETAMINE 50MG/ML SYRINGE 50 MG/ML DISP.SYRIN IV ONE (08:17)
[2019-07-10] MEDS ORDERED: CEFAZOLIN SODIUM 1 GM VIAL ONE (08:58)
[2019-07-10] MEDS ORDERED: ALBUMIN (HUMAN) 5% 500 ML IV ONE (10:37)
[2019-07-10] MEDS ORDERED: PHENYLEPHRINE HCL 10 MG/ML 1ML VIAL IV ONE (11:22)
[2019-07-10] MEDS ORDERED: TRAMADOL HCL 50 MG TABLET PO PRN ×2 (11:45)
[2019-07-10] MEDS ORDERED: HEPARIN SODIUM 1000UNIT/ML 10ML VIAL ONE (12:15)
[2019-07-10 13:04] LABS: ABG BASE EXCESS -12.7 mmol/L (-2.0-3.0); ABG HCO3 17.9 mmol/L (21.0-28.0); ABG OXYGEN SATURATION 90.5 % (95.0-99.0); ABG PCO2 65 mmHg (35-48)
[2019-07-10] MEDS ORDERED: PROPOFOL 1000 MG/100 ML 100 ML IV ONE (13:18)
[2019-07-10 13:55] LABS: ABG BASE EXCESS -6.2 mmol/L (-2.0-3.0); ABG HCO3 20.6 mmol/L (21.0-28.0); ABG OXYGEN SATURATION 99.7 % (95.0-99.0); ABG PCO2 45 mmHg (35-48)
[2019-07-10] MEDS ORDERED: SODIUM BICARB 8.4% 50ML SYRINGE ONE ×2 (13:57→13:58)
--- NOTE | 2019-07-10 15:00 | NUR ---
I HAVE ASSUMED CARE OF PT FROM SURGERY STAFF..HE IS INTUBATED. CALM ON DIPRIVAN DRIP. RESPONSIVE TO VOICE AND FOLLOWS COMMANDS. TO HAVE DIALYSIS TODAY..
[2019-07-10] MEDS ORDERED: PROPOFOL 1000 MG/100 ML 100 ML IV SCH (15:30)
--- NOTE | 2019-07-10 15:40 | NUR ---
I HAVE NOTIFIED FAMILY . SPOKE TO DAUGHTER IN LAW TAWANNA CARRERO AND SHE GAVE CONSENT FOR HEMODIALYSIS
[2019-07-10] MEDS: FERROUS SULFATE 325 MG TABLET.DR PO SCH (16:16)
--- NOTE | 2019-07-10 16:16 | NUR ---
HEMODIALYSIS NURSE HAS BEEN NOTIFIED FOR TREATMENT
--- NOTE | 2019-07-10 16:37 | NUR ---
KEN PLAN PATIENT VENTED. BRYSON WILL CONTINUE TO FOLLOW. Addendum: 07/10/19 at 1641 by TEJINDER WASHBURN RN CM Amended: Links added.
[2019-07-10] MEDS ORDERED: HEPARIN SODIUM 5000UNIT/ML 1ML VIAL IJ PRN (17:45)
[2019-07-10] MEDS ORDERED: 0.9% SODIUM CHLORIDE 1000 ML IV BAG IV PRN (17:45)
[2019-07-10] MEDS ORDERED: SODIUM CHLORIDE 0.9% 1000ML 1,000 ML IV PRN (17:45)
[2019-07-10] MEDS ORDERED: NITROGLYCERIN 0.4 MG SL TAB SL PRN (17:45)
--- NOTE | 2019-07-10 18:42 | NUR ---
HAND OFF REPORT GIVEN TO VIRGIE NANCE
[2019-07-10] MEDS ORDERED: ATORVASTATIN CALCIUM 10 MG TABLET PO SCH (21:00)
[2019-07-10] MEDS: CARVEDILOL 12.5 MG TABLET PO SCH (21:00)
[2019-07-10] MEDS: LOSARTAN 50 MG TABLET PO SCH (21:00)
[2019-07-10 21:03] LABS: ABG BASE EXCESS 1.1 mmol/L (-2.0-3.0); ABG HCO3 24.3 mmol/L (21.0-28.0); ABG OXYGEN SATURATION 98.8 % (95.0-99.0); ABG PCO2 34 mmHg (35-48)
[2019-07-10] MEDS: CEFAZOLIN SODIUM 1 GM VIAL IVP SCH (21:39)
[2019-07-10 21:50] LABS: ABG BASE EXCESS -0.2 mmol/L (-2.0-3.0); ABG HCO3 21.5 mmol/L (21.0-28.0); ABG OXYGEN SATURATION 99.4 % (95.0-99.0); ABG PCO2 28 mmHg (35-48)
--- NOTE | 2019-07-10 22:10 | NUR ---
Patient extubated at 2205 and placed on aerosol mask with FiO2 at 40%
[2019-07-10] MEDS ORDERED: ONDANSETRON HCL 4 MG/2 ML VIAL IVP PRN (22:15)
[2019-07-10 23:14] LABS: ABG BASE EXCESS -0.2 mmol/L (-2.0-3.0); ABG HCO3 22.2 mmol/L (21.0-28.0); ABG PCO2 30 mmHg (35-48)
[2019-07-11] VITALS (11 sets, daily range): BP systolic 96–137; BP diastolic 44–75
[2019-07-11] MEDS: ACETAMINOPHEN 325 MG TAB PO PRN ×2 (02:14→09:09)
[2019-07-11] MEDS: CEFAZOLIN SODIUM 1 GM VIAL IVP SCH ×2 (02:35→10:44)
[2019-07-11 04:56] LABS: BASOPHILS % (AUTO) 0.4 % (0.0-5.0); EOSINOPHILS % (AUTO) 0.1 % (0.0-8.0); HEMATOCRIT 27.9 % (42-54); LYMPHOCYTES % (AUTO) 18.6 % (21.0-51.0); MEAN CORPUSCULAR HGB CONC 31.5 g/dL (32.0-36.0); MEAN CORPUSCULAR VOLUME 88.9 fL (79-99); MONOCYTES % (AUTO) 10.1 % (3.0-13.0); NEUTROPHILS % (AUTO) 70.7 % (40.0-77.0); PLATELET COUNT (AUTO) 157 K/uL (130-400); RED BLOOD CELL COUNT(AUTO) 3.14 MIL/uL (4.50-6.20); RED CELL DISTRIBUTION WIDTH 16.9 % (11.0-15.5); WHITE BLOOD COUNT (AUTO) 7.9 K/uL (4.8-10.8)
[2019-07-11 05:16] LABS: CREATININE 4.3 mg/dL (0.5-1.5); PHOSPHORUS 6.1 mg/dL (2.5-4.9); POTASSIUM 4.3 mmol/L (3.5-5.1)
[2019-07-11] MEDS ORDERED: PANTOPRAZOLE SODIUM 40 MG TABLET.DR PO SCH (07:30)
[2019-07-11 08:50] LABS: HEMATOCRIT 29.4 % (42-54); MEAN CORPUSCULAR HEMOGLOBIN 28.2 pg (27.0-33.0); MEAN CORPUSCULAR HGB CONC 31.3 g/dL (32.0-36.0); MEAN CORPUSCULAR VOLUME 90.2 fL (79-99); RED BLOOD CELL COUNT(AUTO) 3.26 MIL/uL (4.50-6.20); RED CELL DISTRIBUTION WIDTH 17.1 % (11.0-15.5); WHITE BLOOD COUNT (AUTO) 8.1 K/uL (4.8-10.8)
[2019-07-11] MEDS ORDERED: FUROSEMIDE 40 MG TABLET PO SCH (09:00)
[2019-07-11] MEDS ORDERED: HYDRALAZINE HCL 25 MG TABLET PO SCH (09:00)
[2019-07-11] MEDS: CARVEDILOL 12.5 MG TABLET PO SCH (09:03)
[2019-07-11] MEDS: FERROUS SULFATE 325 MG TABLET.DR PO SCH (09:03)
[2019-07-11] MEDS: LOSARTAN 50 MG TABLET PO SCH (09:04)
[2019-07-11 09:06] LABS: CREATININE 4.7 mg/dL (0.5-1.5); POTASSIUM 4.5 mmol/L (3.5-5.1)
--- NOTE | 2019-07-11 15:47 | NUR ---
CM NOTE REVIEWED CHART, NOTED THAT CM YESTERDAY UNABLE TO INTERVIEW PATIENT. NO TRIGGERS OR CM ORDER RECD, NO CONCERNS VOICED BY PT OR PRIMARY RN, CM DETAILED ASSESSMENT DEFERRED, PATIENT DC TO HOME Addendum: 07/11/19 at 1548 by OPHELIA JESUS RN CM Amended: Links added.
[2019-07-12 10:10] LABS: HEPATITIS A ANTIBODY IGM Negative (Negative); HEPATITIS B CORE IGM Negative (Negative); HEPATITIS Bs ANTIGEN SCREEN P Negative (Negative)
[2019-10-24] MEDS ORDERED: IBUP-2077 PO (09:59)
== END 2019-07-11 13:43 | disposition home or self-care (01) | DRG 252 ==
LOC: EDSTATUS 10:15 → DAHIP 07-10 05:48 → PAH.CVR 07-10 19:00 → DAHIP 07-11 07:30
PROVIDERS: ADMIT Thoracic Surgery (Cardiothoracic Vascular Surgery); ATTEND Thoracic Surgery (Cardiothoracic Vascular Surgery)
PROC: 5A1D70Z Performance of Urinary Filtration, Intermittent, Less than 6 Hours Per Day (ICD-10-PCS; 2019-07-10)
PROC: 0BH17EZ Insertion of Endotracheal Airway into Trachea, Via Natural or Artificial Opening (ICD-10-PCS; 2019-07-10)
PROC: 5A1935Z Respiratory Ventilation, Less than 24 Consecutive Hours (ICD-10-PCS; 2019-07-10)
PROC: 041L0KN Bypass Left Femoral Artery to Posterior Tibial Artery with Nonautologous Tissue Substitute, Open Approach (ICD-10-PCS; principal; 2019-07-10 10:13)
DX: I73.9 Peripheral vascular disease, unspecified (principal); J96.00 Acute respiratory failure, unspecified whether with hypoxia or hypercapnia; N18.6 End stage renal disease; I12.0 Hypertensive chronic kidney disease with stage 5 chronic kidney disease or end stage renal disease; E87.2 Acidosis; I70.245 Atherosclerosis of native arteries of left leg with ulceration of other part of foot; L97.529 Non-pressure chronic ulcer of other part of left foot with unspecified severity; L97.519 Non-pressure chronic ulcer of other part of right foot with unspecified severity; E11.621 Type 2 diabetes mellitus with foot ulcer; D64.9 Anemia, unspecified; E11.21 Type 2 diabetes mellitus with diabetic nephropathy; E11.22 Type 2 diabetes mellitus with diabetic chronic kidney disease; E78.1 Pure hyperglyceridemia; I25.10 Atherosclerotic heart disease of native coronary artery without angina pectoris; L08.9 Local infection of the skin and subcutaneous tissue, unspecified; Z99.2 Dependence on renal dialysis; Z95.1 Presence of aortocoronary bypass graft; Z79.899 Other long term (current) drug therapy; Z79.02 Long term (current) use of antithrombotics/antiplatelets; Z88.1 Allergy status to other antibiotic agents; Z88.2 Allergy status to sulfonamides
CPT/HCPCS: 36415; 71045; 71046; 80048; 80053; 80074; 82435; 82803; 82947; 82948; 83036; 83605; 83735; 84100; 84132; 84295; 84520; 85018; 85025; 85027; 85610; 85730; 90935; 93005; 94002; 94150; 97039; G0378; J0690; J0697; J1100; J1644; J2001; J2250; J2370; J2405; J2704; J2710; J3010; J3490; J7030; J7040; J7120; P9045

== ENCOUNTER → 2019-07-26 | Outpatient (CLI) | payer MEDICARE ==
[~2019-07-26] MED LIST changes: -AURYXIA PO; +FERR-82 PO; -FERR325T22 PO; +PANT40TA PO; -PANT40TA54 PO; +TRAM50TA4 PO
[2019-07-26 11:52] VITALS: BP 135/85
== END | disposition home or self-care (01) ==
LOC: WHH 08:30
PROVIDERS: ATTEND Podiatrist Foot & Ankle Surgery
DX: L97.512 Non-pressure chronic ulcer of other part of right foot with fat layer exposed (principal); I70.244 Atherosclerosis of native arteries of left leg with ulceration of heel and midfoot; L89.622 Pressure ulcer of left heel, stage 2; L97.421 Non-pressure chronic ulcer of left heel and midfoot limited to breakdown of skin; I70.245 Atherosclerosis of native arteries of left leg with ulceration of other part of foot; E11.22 Type 2 diabetes mellitus with diabetic chronic kidney disease; I12.0 Hypertensive chronic kidney disease with stage 5 chronic kidney disease or end stage renal disease; N18.6 End stage renal disease; E11.51 Type 2 diabetes mellitus with diabetic peripheral angiopathy without gangrene; E78.5 Hyperlipidemia, unspecified; I25.10 Atherosclerotic heart disease of native coronary artery without angina pectoris; I42.9 Cardiomyopathy, unspecified; K21.9 Gastro-esophageal reflux disease without esophagitis; H54.62 Unqualified visual loss, left eye, normal vision right eye; Z95.1 Presence of aortocoronary bypass graft; Z95.0 Presence of cardiac pacemaker; Z90.49 Acquired absence of other specified parts of digestive tract; Z88.6 Allergy status to analgesic agent; Z88.8 Allergy status to other drugs, medicaments and biological substances
CPT/HCPCS: 11042; 11045

== ENCOUNTER → 2019-08-09 | Outpatient (CLI) | payer MEDICARE ==
[~2019-08-09] MED LIST changes: +LIDOCAINE HCL 2% JELLY 5 ML TP ONE
[2019-08-09 13:25] VITALS: BP 123/97
== END | disposition home or self-care (01) ==
LOC: WHH 09:00
PROVIDERS: ATTEND Podiatrist Foot & Ankle Surgery
DX: E11.621 Type 2 diabetes mellitus with foot ulcer (principal); L97.511 Non-pressure chronic ulcer of other part of right foot limited to breakdown of skin; I70.244 Atherosclerosis of native arteries of left leg with ulceration of heel and midfoot; L97.421 Non-pressure chronic ulcer of left heel and midfoot limited to breakdown of skin; I70.245 Atherosclerosis of native arteries of left leg with ulceration of other part of foot; L97.521 Non-pressure chronic ulcer of other part of left foot limited to breakdown of skin; E11.22 Type 2 diabetes mellitus with diabetic chronic kidney disease; I12.0 Hypertensive chronic kidney disease with stage 5 chronic kidney disease or end stage renal disease; N18.6 End stage renal disease; E11.51 Type 2 diabetes mellitus with diabetic peripheral angiopathy without gangrene; E78.5 Hyperlipidemia, unspecified; I25.10 Atherosclerotic heart disease of native coronary artery without angina pectoris; I42.9 Cardiomyopathy, unspecified; K21.9 Gastro-esophageal reflux disease without esophagitis; H54.62 Unqualified visual loss, left eye, normal vision right eye; Z95.1 Presence of aortocoronary bypass graft; Z95.0 Presence of cardiac pacemaker; Z90.49 Acquired absence of other specified parts of digestive tract; Z88.6 Allergy status to analgesic agent; Z88.8 Allergy status to other drugs, medicaments and biological substances
CPT/HCPCS: G0463

== ENCOUNTER → 2019-08-23 | Outpatient (CLI) | payer MEDICARE ==
[~2019-08-23] MED LIST changes: +IBUP-2077 PO
[2019-08-23 15:39] VITALS: BP 185/97
== END | disposition home or self-care (01) ==
LOC: WHH 08:45
PROVIDERS: ATTEND Podiatrist Foot & Ankle Surgery
DX: E11.621 Type 2 diabetes mellitus with foot ulcer (principal); L97.511 Non-pressure chronic ulcer of other part of right foot limited to breakdown of skin; I70.244 Atherosclerosis of native arteries of left leg with ulceration of heel and midfoot; L97.421 Non-pressure chronic ulcer of left heel and midfoot limited to breakdown of skin; I70.245 Atherosclerosis of native arteries of left leg with ulceration of other part of foot; L97.521 Non-pressure chronic ulcer of other part of left foot limited to breakdown of skin; E11.22 Type 2 diabetes mellitus with diabetic chronic kidney disease; I12.0 Hypertensive chronic kidney disease with stage 5 chronic kidney disease or end stage renal disease; N18.6 End stage renal disease; E11.51 Type 2 diabetes mellitus with diabetic peripheral angiopathy without gangrene; E78.5 Hyperlipidemia, unspecified; I25.10 Atherosclerotic heart disease of native coronary artery without angina pectoris; I42.9 Cardiomyopathy, unspecified; K21.9 Gastro-esophageal reflux disease without esophagitis; H54.62 Unqualified visual loss, left eye, normal vision right eye; Z95.1 Presence of aortocoronary bypass graft; Z95.0 Presence of cardiac pacemaker; Z90.49 Acquired absence of other specified parts of digestive tract; Z88.6 Allergy status to analgesic agent; Z88.8 Allergy status to other drugs, medicaments and biological substances
CPT/HCPCS: G0463

== ENCOUNTER → 2019-09-13 | Outpatient (CLI) | payer MEDICARE ==
[2019-09-13 12:12] VITALS: BP 163/100; PULSE 85; RESP 18; TEMP 98.1
== END | disposition home or self-care (01) ==
LOC: WHH 08:55
PROVIDERS: ATTEND Podiatrist Foot & Ankle Surgery
DX: E11.621 Type 2 diabetes mellitus with foot ulcer (principal); I70.244 Atherosclerosis of native arteries of left leg with ulceration of heel and midfoot; L97.421 Non-pressure chronic ulcer of left heel and midfoot limited to breakdown of skin; I70.245 Atherosclerosis of native arteries of left leg with ulceration of other part of foot; L97.521 Non-pressure chronic ulcer of other part of left foot limited to breakdown of skin; L97.518 Non-pressure chronic ulcer of other part of right foot with other specified severity; E11.51 Type 2 diabetes mellitus with diabetic peripheral angiopathy without gangrene; E11.22 Type 2 diabetes mellitus with diabetic chronic kidney disease; I12.9 Hypertensive chronic kidney disease with stage 1 through stage 4 chronic kidney disease, or unspecified chronic kidney disease; N18.6 End stage renal disease; I25.10 Atherosclerotic heart disease of native coronary artery without angina pectoris; K21.9 Gastro-esophageal reflux disease without esophagitis; E78.5 Hyperlipidemia, unspecified; H54.61 Unqualified visual loss, right eye, normal vision left eye; I42.9 Cardiomyopathy, unspecified; Z95.1 Presence of aortocoronary bypass graft; Z90.49 Acquired absence of other specified parts of digestive tract; Z88.6 Allergy status to analgesic agent; Z88.8 Allergy status to other drugs, medicaments and biological substances; Z95.0 Presence of cardiac pacemaker

== ENCOUNTER → 2019-09-27 | Outpatient (CLI) | payer MEDICARE ==
[~2019-09-27] MED LIST changes: -LIDOCAINE HCL 2% JELLY 5 ML TP ONE
== END | disposition home or self-care (01) ==
LOC: WHH 09:10
PROVIDERS: ATTEND Podiatrist Foot & Ankle Surgery
DX: E11.621 Type 2 diabetes mellitus with foot ulcer (principal); I70.344 Atherosclerosis of unspecified type of bypass graft(s) of the left leg with ulceration of heel and midfoot; L97.421 Non-pressure chronic ulcer of left heel and midfoot limited to breakdown of skin; I70.345 Atherosclerosis of unspecified type of bypass graft(s) of the left leg with ulceration of other part of foot; L97.521 Non-pressure chronic ulcer of other part of left foot limited to breakdown of skin; E11.51 Type 2 diabetes mellitus with diabetic peripheral angiopathy without gangrene; E11.22 Type 2 diabetes mellitus with diabetic chronic kidney disease; I12.0 Hypertensive chronic kidney disease with stage 5 chronic kidney disease or end stage renal disease; N18.6 End stage renal disease; I25.10 Atherosclerotic heart disease of native coronary artery without angina pectoris; K21.9 Gastro-esophageal reflux disease without esophagitis; E78.5 Hyperlipidemia, unspecified; H54.61 Unqualified visual loss, right eye, normal vision left eye; I42.9 Cardiomyopathy, unspecified; Z95.1 Presence of aortocoronary bypass graft; Z90.49 Acquired absence of other specified parts of digestive tract; Z88.6 Allergy status to analgesic agent; Z88.8 Allergy status to other drugs, medicaments and biological substances; Z95.0 Presence of cardiac pacemaker
CPT/HCPCS: A6248; G0463

== ENCOUNTER → 2019-10-11 | Outpatient (CLI) | payer MEDICARE | END | disposition home or self-care (01) | LOC: WHH 09:00 | PROVIDERS: ATTEND Podiatrist Foot & Ankle Surgery | DX: E11.621 Type 2 diabetes mellitus with foot ulcer (principal); I70.344 Atherosclerosis of unspecified type of bypass graft(s) of the left leg with ulceration of heel and midfoot; L89.620 Pressure ulcer of left heel, unstageable; L97.421 Non-pressure chronic ulcer of left heel and midfoot limited to breakdown of skin; I70.345 Atherosclerosis of unspecified type of bypass graft(s) of the left leg with ulceration of other part of foot; L97.521 Non-pressure chronic ulcer of other part of left foot limited to breakdown of skin; I70.3 Atherosclerosis of unspecified type of bypass graft(s) of the extremities; E11.22 Type 2 diabetes mellitus with diabetic chronic kidney disease; I12.0 Hypertensive chronic kidney disease with stage 5 chronic kidney disease or end stage renal disease; N18.6 End stage renal disease; I25.10 Atherosclerotic heart disease of native coronary artery without angina pectoris; K21.9 Gastro-esophageal reflux disease without esophagitis; E78.5 Hyperlipidemia, unspecified; H54.61 Unqualified visual loss, right eye, normal vision left eye; I42.9 Cardiomyopathy, unspecified; Z95.1 Presence of aortocoronary bypass graft; Z90.49 Acquired absence of other specified parts of digestive tract; Z88.6 Allergy status to analgesic agent; Z88.8 Allergy status to other drugs, medicaments and biological substances; Z95.0 Presence of cardiac pacemaker | CPT/HCPCS: G0463 ==

== ENCOUNTER → 2019-10-18 | Outpatient (CLI) | payer MEDICARE ==
[~2019-10-18] MED LIST changes: +LIDOCAINE HCL 4% LTA SOL 4 ML VIAL TP ONE
== END | disposition home or self-care (01) ==
LOC: WHH 09:15
PROVIDERS: ATTEND Podiatrist Foot & Ankle Surgery
DX: E11.621 Type 2 diabetes mellitus with foot ulcer (principal); I70.344 Atherosclerosis of unspecified type of bypass graft(s) of the left leg with ulceration of heel and midfoot; L89.620 Pressure ulcer of left heel, unstageable; L97.421 Non-pressure chronic ulcer of left heel and midfoot limited to breakdown of skin; I70.345 Atherosclerosis of unspecified type of bypass graft(s) of the left leg with ulceration of other part of foot; L97.521 Non-pressure chronic ulcer of other part of left foot limited to breakdown of skin; I70.3 Atherosclerosis of unspecified type of bypass graft(s) of the extremities; E11.52 Type 2 diabetes mellitus with diabetic peripheral angiopathy with gangrene; I96 Gangrene, not elsewhere classified; E11.22 Type 2 diabetes mellitus with diabetic chronic kidney disease; I12.0 Hypertensive chronic kidney disease with stage 5 chronic kidney disease or end stage renal disease; N18.6 End stage renal disease; I25.10 Atherosclerotic heart disease of native coronary artery without angina pectoris; K21.9 Gastro-esophageal reflux disease without esophagitis; E78.5 Hyperlipidemia, unspecified; H54.61 Unqualified visual loss, right eye, normal vision left eye; I42.9 Cardiomyopathy, unspecified; Z95.1 Presence of aortocoronary bypass graft; Z90.49 Acquired absence of other specified parts of digestive tract; Z88.6 Allergy status to analgesic agent; Z88.8 Allergy status to other drugs, medicaments and biological substances; Z95.0 Presence of cardiac pacemaker
CPT/HCPCS: G0463

== ENCOUNTER → 2019-10-23 | Outpatient (CLI) | payer MEDICARE ==
[~2019-10-23] VITALS: Ht 157.5 cm; Wt 65.8 kg
[~2019-10-23] MED LIST changes: -LIDOCAINE HCL 4% LTA SOL 4 ML VIAL TP ONE
[2019-10-23 09:26] LABS: BASOPHILS % (AUTO) 0.9 % (0.0-5.0); EOSINOPHILS % (AUTO) 2.6 % (0.0-8.0); HEMATOCRIT 33.4 % (42-54); LYMPHOCYTES % (AUTO) 20.4 % (21.0-51.0); MEAN CORPUSCULAR HEMOGLOBIN 31.4 pg (27.0-33.0); MEAN CORPUSCULAR VOLUME 97.9 fL (79-99); MONOCYTES % (AUTO) 11.8 % (3.0-13.0); PLATELET COUNT (AUTO) 208 K/uL (130-400); RED BLOOD CELL COUNT(AUTO) 3.41 MIL/uL (4.50-6.20); RED CELL DISTRIBUTION WIDTH 16.7 % (11.0-15.5); WHITE BLOOD COUNT (AUTO) 9.8 K/uL (4.8-10.8)
[2019-10-23 09:46] LABS: ALBUMIN 2.9 g/dL (3.5-5.0); BILIRUBIN,TOTAL 1.4 mg/dL (0.2-1.0); CREATININE 5.3 mg/dL (0.5-1.5); TOTAL PROTEIN, SERUM 8.9 g/dL (6.0-8.3)
[2019-10-24 09:51] VITALS: BP 199/102
--- NOTE | 2019-10-24 10:27 | NUR ---
report called dr calderon and reported abnormal labs will fax and md will call back with new orders if needed
== END ==
LOC: DAH 10:00 → EDSTATUS 10-25 10:30
PROVIDERS: ATTEND Podiatrist Foot & Ankle Surgery
DX: Z01.818 Encounter for other preprocedural examination (principal); I96 Gangrene, not elsewhere classified; Z11.59 Encounter for screening for other viral diseases
CPT/HCPCS: 36415; 80053; 85025; 93005; C9803; U0003; 87070; 87076; 87205

== ENCOUNTER → 2019-10-25 | Outpatient (CLI) | payer MEDICARE ==
[~2019-10-25] MED LIST changes: -IBUP-2070 PO; +LIDOCAINE HCL 4% LTA SOL 4 ML VIAL TP ONE; -PANT40TA PO
== END | disposition home or self-care (01) ==
LOC: WHH 09:30
PROVIDERS: ATTEND Podiatrist Foot & Ankle Surgery
DX: E11.621 Type 2 diabetes mellitus with foot ulcer (principal); L97.523 Non-pressure chronic ulcer of other part of left foot with necrosis of muscle; L97.421 Non-pressure chronic ulcer of left heel and midfoot limited to breakdown of skin; E11.52 Type 2 diabetes mellitus with diabetic peripheral angiopathy with gangrene; I96 Gangrene, not elsewhere classified; E11.22 Type 2 diabetes mellitus with diabetic chronic kidney disease; I12.0 Hypertensive chronic kidney disease with stage 5 chronic kidney disease or end stage renal disease; N18.6 End stage renal disease; I25.10 Atherosclerotic heart disease of native coronary artery without angina pectoris; K21.9 Gastro-esophageal reflux disease without esophagitis; E78.5 Hyperlipidemia, unspecified; H54.61 Unqualified visual loss, right eye, normal vision left eye; I42.9 Cardiomyopathy, unspecified; Z95.1 Presence of aortocoronary bypass graft; Z90.49 Acquired absence of other specified parts of digestive tract; Z88.6 Allergy status to analgesic agent; Z88.8 Allergy status to other drugs, medicaments and biological substances; Z95.0 Presence of cardiac pacemaker
CPT/HCPCS: G0463

== ENCOUNTER 2019-10-26 13:32 | Inpatient (IN) | payer MEDICARE ==
[~2019-10-26] VITALS: Ht 162.6 cm; Wt 72.7 kg
[~2019-10-26 13:32] MED LIST changes: -LIDOCAINE HCL 4% LTA SOL 4 ML VIAL TP ONE
[2019-10-26] MEDS ORDERED: LACTULOSE 20 GM/30 ML UDCUP PO PRN (14:45)
[2019-10-26] MEDS ORDERED: VANCOMYCIN 1GM+NS 250ML 250 ML IV SCH (14:45)
[2019-10-26] MEDS ORDERED: NITROGLYCERIN 0.4 MG SL TAB SL PRN (14:45)
[2019-10-26 14:49] LABS: EOSINOPHILS % (AUTO) 4.1 % (0.0-8.0); HEMATOCRIT 31.6 % (42-54); LYMPHOCYTES % (AUTO) 27.4 % (21.0-51.0); MEAN CORPUSCULAR HEMOGLOBIN 32.3 pg (27.0-33.0); MEAN CORPUSCULAR HGB CONC 33.2 g/dL (32.0-36.0); MEAN CORPUSCULAR VOLUME 97.2 fL (79-99); MONOCYTES % (AUTO) 11.1 % (3.0-13.0); NEUTROPHILS % (AUTO) 56.1 % (40.0-77.0); PLATELET COUNT (AUTO) 182 K/uL (130-400); RED BLOOD CELL COUNT(AUTO) 3.25 MIL/uL (4.50-6.20); RED CELL DISTRIBUTION WIDTH 17.3 % (11.0-15.5); WHITE BLOOD COUNT (AUTO) 6.1 K/uL (4.8-10.8)
[2019-10-26 15:05] LABS: ALBUMIN 2.9 g/dL (3.5-5.0); TOTAL PROTEIN, SERUM 8.7 g/dL (6.0-8.3)
[2019-10-26] MEDS ORDERED: VANCOMYCIN 1GM+NS 250ML 250 ML IV ONE (15:24)
[2019-10-26] MEDS ORDERED: HYDROCODONE/ACETAMINOPHEN 5/325 MG TAB ONE ×2 (16:41→21:03)
[2019-10-26] MEDS ORDERED: ZOSYN 3.375GM+NS 50ML 50 ML IV ONE (20:46)
[2019-10-26] MEDS ORDERED: CARVEDILOL 12.5 MG TABLET PO ONE (20:47)
[2019-10-26] MEDS ORDERED: FUROSEMIDE 40 MG TABLET ONE (20:57)
[2019-10-26] MEDS: ZOSYN 3.375GM+NS 50ML 50 ML IV SCH (21:00)
[2019-10-26] MEDS: FUROSEMIDE 40 MG TABLET PO SCH (21:00)
[2019-10-26] MEDS: CARVEDILOL 3.125 MG TABLET PO SCH (21:00)
[2019-10-27] VITALS (22 sets, daily range): BP systolic 114–169; BP diastolic 63–88
[2019-10-27] MEDS ORDERED: HYDROCODONE/ACETAMINOPHEN 10/325 MG TAB ONE (01:54)
[2019-10-27 04:28] LABS: BASOPHILS % (AUTO) 0.8 % (0.0-5.0); EOSINOPHILS % (AUTO) 6.3 % (0.0-8.0); HEMATOCRIT 29.2 % (42-54); LYMPHOCYTES % (AUTO) 24.5 % (21.0-51.0); MEAN CORPUSCULAR HEMOGLOBIN 32.1 pg (27.0-33.0); MEAN CORPUSCULAR HGB CONC 32.9 g/dL (32.0-36.0); MEAN CORPUSCULAR VOLUME 97.7 fL (79-99); MONOCYTES % (AUTO) 10.9 % (3.0-13.0); PLATELET COUNT (AUTO) 166 K/uL (130-400); RED BLOOD CELL COUNT(AUTO) 2.99 MIL/uL (4.50-6.20); RED CELL DISTRIBUTION WIDTH 17.4 % (11.0-15.5); WHITE BLOOD COUNT (AUTO) 6.1 K/uL (4.8-10.8)
[2019-10-27 04:53] LABS: ALBUMIN 2.7 g/dL (3.5-5.0); BILIRUBIN,TOTAL 1.1 mg/dL (0.2-1.0); CREATININE 4.6 mg/dL (0.5-1.5); POTASSIUM 4.3 mmol/L (3.5-5.1); TOTAL PROTEIN, SERUM 7.8 g/dL (6.0-8.3)
[2019-10-27 08:00] LABS: MAGNESIUM 2.4 mg/dL (1.80-2.40); PHOSPHORUS 6.7 mg/dL (2.5-4.9)
[2019-10-27] MEDS ORDERED: ZOSYN 3.375GM+NS 50ML 50 ML IV ONE (08:21)
[2019-10-27] MEDS ORDERED: FUROSEMIDE 40 MG TABLET ONE (08:21)
[2019-10-27] MEDS ORDERED: LOSARTAN 50 MG TABLET ONE (08:22)
[2019-10-27] MEDS ORDERED: CARVEDILOL 12.5 MG TABLET PO ONE (08:22)
[2019-10-27] MEDS: FERROUS SULFATE 325 MG TABLET.DR PO SCH (09:00)
[2019-10-27] MEDS: LOSARTAN 50 MG TABLET PO SCH (09:00)
[2019-10-27] MEDS: FOLIC ACID/VITAMIN B COMP W-C 1 CAP TAB PO SCH (09:00)
[2019-10-27] MEDS: FUROSEMIDE 40 MG TABLET PO SCH ×2 (09:00→22:24)
[2019-10-27] MEDS: CARVEDILOL 3.125 MG TABLET PO SCH ×2 (09:00→22:24)
[2019-10-27] MEDS: ZOSYN 3.375GM+NS 50ML 50 ML IV SCH ×2 (09:00→22:23)
[2019-10-27] MEDS: ATORVASTATIN CALCIUM 40 MG TABLET PO SCH (09:00)
[2019-10-27 10:14] LABS: APPEARANCE,URINE Clear (CLEAR); BILIRUBIN,URINE Negative (NEGATIVE); COLOR,URINE Dark Yellow (YELLOW); GLUCOSE, URINE (UA) TRACE mg/dL (NEGATIVE); KETONES,URINE Negative (NEGATIVE); LEUKOCYTE ESTERASE ,URINE Trace (NEGATIVE); NITRATE,URINE Negative (NEGATIVE); OCCULT BLOOD,URINE Negative (NEGATIVE); PROTEIN,URINE >=1000 mg/dL (NEGATIVE)
[2019-10-27 10:20] LABS: BACTERIA,URINE Few /HPF (None Seen); RBC,URINE 0-1 /HPF (0-1); SQUAMOUS EPITHELIAL CELL,UR 0-2 /HPF (0-2)
[2019-10-27] MEDS ORDERED: COMPOUND IV REFRIGERATED 1 EACH IVSOLN MISC PRN (10:45)
[2019-10-27] MEDS ORDERED: SODIUM CHLORIDE 0.9% 1000ML 1,000 ML IV ONE (11:22)
[2019-10-27] MEDS ORDERED: MIDAZOLAM HCL 1 MG/ML 2ML VIAL ONE (11:50)
[2019-10-27] MEDS ORDERED: LIDOCAINE PF 2% 5ML ABBOJECT ONE (11:50)
[2019-10-27] MEDS ORDERED: PROPOFOL 10 MG/ML 20ML VIAL IV ONE (11:51)
[2019-10-27] MEDS ORDERED: FENTANYL CITRATE PF 50 MCG/1 ML 2ML VIAL ONE (11:51)
[2019-10-27] MEDS ORDERED: BUPIVACAINE/PF 0.5% 30ML VIAL ONE (12:37)
[2019-10-27] MEDS ORDERED: LIDOCAINE HCL 1% 20 ML VIAL ONE (12:37)
[2019-10-27] MEDS ORDERED: GLYCOPYRROLATE 1 MG/5 ML SYRINGE ONE (12:48)
[2019-10-27] MEDS ORDERED: EPHEDRINE SULFATE 50 MG/ML AMPULE ONE (12:54)
--- NOTE | 2019-10-27 14:30 | NUR ---
STATES HAS BEEN TESTED FOR COVIC-19 3 TIMES ALREADY AND DOES NOT WANT TO BE ASKED AGAIN Addendum: 10/27/19 at 1833 by LINA MATTSON RN RN Amended: Links added.
--- NOTE | 2019-10-27 14:50 | NUR ---
PROCEDURE REPORT RECEIVED FROM PASCALE RN (PACU). PATIENT S/P RIGHT TMA BY DR. MURPHY. DRESSING DRY AND INTACT. PATIENT STABLE AT THIS TIME.
[2019-10-27] MEDS: HYDROCODONE/ACETAMINOPHEN 5/325 MG TAB PO PRN ×2 (16:05→22:25)
--- NOTE | 2019-10-27 18:21 | NUR ---
cm note per daughter in law cherelle, pt resides at home with daughter in law and her family, pt needs assistance with adls/ has provider 35hrs/sk uses w/c and shower chair, dc plan is back home at time of dc. Addendum: 10/27/19 at 1824 by DELMIS GALEANA CM Amended: Links added.
[2019-10-28 00:42] VITALS: BP 136/57
[2019-10-28] MEDS: HYDROCODONE/ACETAMINOPHEN 5/325 MG TAB PO PRN ×2 (04:06→09:47)
[2019-10-28 04:36] VITALS: BP 122/56
[2019-10-28 08:00] VITALS: BP 154/70
[2019-10-28] MEDS ORDERED: VANCOMYCIN 750MG + NS 250 ML IV SCH ×2 (09:00)
[2019-10-28] MEDS: LOSARTAN 50 MG TABLET PO SCH (09:48)
[2019-10-28] MEDS: FUROSEMIDE 40 MG TABLET PO SCH ×2 (09:49→21:06)
[2019-10-28] MEDS: FOLIC ACID/VITAMIN B COMP W-C 1 CAP TAB PO SCH (09:49)
[2019-10-28] MEDS: ATORVASTATIN CALCIUM 40 MG TABLET PO SCH (09:49)
[2019-10-28] MEDS: FERROUS SULFATE 325 MG TABLET.DR PO SCH (09:49)
[2019-10-28] MEDS: CARVEDILOL 3.125 MG TABLET PO SCH ×2 (09:50→21:06)
[2019-10-28] MEDS: ZOSYN 3.375GM+NS 50ML 50 ML IV SCH ×2 (09:50→21:06)
[2019-10-28 11:25] VITALS: BP 149/62
[2019-10-28] MEDS: MORPHINE SULFATE 2 MG/ML 1ML SYG IVP PRN ×2 (12:48→21:06)
[2019-10-28] MEDS ORDERED: VANCOMYCIN 1GM+NS 250ML 250 ML IV SCH (15:00)
[2019-10-28] MEDS: ACETAMINOPHEN-CODEINE 300/30MG TAB PO PRN (15:12)
[2019-10-28 16:00] VITALS: BP 142/63
[2019-10-28 21:19] VITALS: BP 156/72
[2019-10-29] MEDS: HYDROCODONE/ACETAMINOPHEN 5/325 MG TAB PO PRN ×4 (00:05→21:02)
[2019-10-29 00:21] VITALS: BP 131/85
[2019-10-29] MEDS: ACETAMINOPHEN-CODEINE 300/30MG TAB PO PRN (02:50)
[2019-10-29 04:08] VITALS: BP 152/79
[2019-10-29] MEDS: MORPHINE SULFATE 2 MG/ML 1ML SYG IVP PRN ×2 (05:43→19:12)
[2019-10-29 06:15] LABS: BASOPHILS % (AUTO) 0.8 % (0.0-5.0); EOSINOPHILS % (AUTO) 6.9 % (0.0-8.0); HEMATOCRIT 28.3 % (42-54); MEAN CORPUSCULAR HEMOGLOBIN 31.7 pg (27.0-33.0); MEAN CORPUSCULAR HGB CONC 32.5 g/dL (32.0-36.0); MEAN CORPUSCULAR VOLUME 97.6 fL (79-99); MONOCYTES % (AUTO) 13.1 % (3.0-13.0); PLATELET COUNT (AUTO) 117 K/uL (130-400); RED CELL DISTRIBUTION WIDTH 17.5 % (11.0-15.5); WHITE BLOOD COUNT (AUTO) 6.4 K/uL (4.8-10.8)
[2019-10-29 06:57] LABS: ALBUMIN 2.6 g/dL (3.5-5.0); BILIRUBIN,TOTAL 1.7 mg/dL (0.2-1.0); CREATININE 4.7 mg/dL (0.5-1.5); POTASSIUM 4.7 mmol/L (3.5-5.1); TOTAL PROTEIN, SERUM 7.8 g/dL (6.0-8.3)
[2019-10-29 08:00] VITALS: BP 134/75
[2019-10-29] MEDS: ATORVASTATIN CALCIUM 40 MG TABLET PO SCH (09:45)
[2019-10-29] MEDS: FOLIC ACID/VITAMIN B COMP W-C 1 CAP TAB PO SCH (09:45)
[2019-10-29] MEDS: FAMOTIDINE 20MG TAB 20 MG TAB PO SCH (09:46)
[2019-10-29] MEDS: FUROSEMIDE 40 MG TABLET PO SCH ×2 (09:46→21:03)
[2019-10-29] MEDS: CARVEDILOL 3.125 MG TABLET PO SCH ×2 (09:46→21:03)
[2019-10-29] MEDS: ZOSYN 3.375GM+NS 50ML 50 ML IV SCH ×2 (09:47→21:02)
[2019-10-29] MEDS: FERROUS SULFATE 325 MG TABLET.DR PO SCH (09:47)
[2019-10-29] MEDS: LOSARTAN 50 MG TABLET PO SCH (09:47)
[2019-10-29 12:00] VITALS: BP 138/66
[2019-10-29 16:00] VITALS: BP 129/73
[2019-10-29 20:00] VITALS: BP 138/82
[2019-10-30] VITALS (8 sets, daily range): BP systolic 111–142; BP diastolic 53–77
[2019-10-30] MEDS: HYDROCODONE/ACETAMINOPHEN 5/325 MG TAB PO PRN ×2 (01:53→15:11)
[2019-10-30] MEDS: MORPHINE SULFATE 2 MG/ML 1ML SYG IVP PRN ×2 (05:22→12:11)
[2019-10-30 05:58] LABS: EOSINOPHILS % (AUTO) 6.6 % (0.0-8.0); HEMATOCRIT 28.3 % (42-54); MEAN CORPUSCULAR HGB CONC 32.9 g/dL (32.0-36.0); MEAN CORPUSCULAR VOLUME 97.3 fL (79-99); MONOCYTES % (AUTO) 10.9 % (3.0-13.0); NEUTROPHILS % (AUTO) 66.2 % (40.0-77.0); PLATELET COUNT (AUTO) 111 K/uL (130-400); RED BLOOD CELL COUNT(AUTO) 2.91 MIL/uL (4.50-6.20); RED CELL DISTRIBUTION WIDTH 17.3 % (11.0-15.5); WHITE BLOOD COUNT (AUTO) 7.3 K/uL (4.8-10.8)
[2019-10-30 06:25] LABS: CREATININE 5.7 mg/dL (0.5-1.5); POTASSIUM 5.3 mmol/L (3.5-5.1)
[2019-10-30] MEDS: FOLIC ACID/VITAMIN B COMP W-C 1 CAP TAB PO SCH (10:18)
[2019-10-30] MEDS: ZOSYN 3.375GM+NS 50ML 50 ML IV SCH ×2 (10:18→21:07)
[2019-10-30] MEDS: LOSARTAN 50 MG TABLET PO SCH (10:19)
[2019-10-30] MEDS: FUROSEMIDE 40 MG TABLET PO SCH ×2 (10:19→21:09)
[2019-10-30] MEDS: FAMOTIDINE 20MG TAB 20 MG TAB PO SCH (10:19)
[2019-10-30] MEDS: ATORVASTATIN CALCIUM 40 MG TABLET PO SCH (10:20)
[2019-10-30] MEDS: FERROUS SULFATE 325 MG TABLET.DR PO SCH (10:20)
[2019-10-30] MEDS: CARVEDILOL 3.125 MG TABLET PO SCH ×2 (10:21→21:09)
[2019-10-30] MEDS ORDERED: VANCOMYCIN 1GM+NS 250ML 250 ML IV SCH (10:45)
[2019-10-30] MEDS: VANCOMYCIN 1GM+NS 250ML 250 ML IV SCH (12:02)
[2019-10-30] MEDS ORDERED: HEPARIN SODIUM 5000UNIT/ML 1ML VIAL IJ PRN ×2 (12:45)
[2019-10-30] MEDS ORDERED: NITROGLYCERIN 0.4 MG SL TAB SL PRN (12:45)
[2019-10-30] MEDS ORDERED: SODIUM CHLORIDE 0.9% 1000ML 1,000 ML IV PRN (12:45)
[2019-10-30] MEDS ORDERED: ACETAMINOPHEN 325 MG TAB PO PRN (12:45)
[2019-10-30] MEDS ORDERED: 0.9% SODIUM CHLORIDE 1000 ML IV BAG IV PRN (12:45)
[2019-10-30] MEDS ORDERED: LIDOCAINE HCL-MPF 1% 2ML VIAL IJ PRN (12:45)
[2019-10-30] MEDS ORDERED: ONDANSETRON HCL 4 MG/2 ML VIAL ONE (16:15)
[2019-10-30] MEDS ORDERED: ONDANSETRON HCL 4 MG/2 ML VIAL IVP SCH (17:30)
--- NOTE | 2019-10-30 18:00 | NUR ---
DRESSING CHANGE DRESSING CHANGE DONE AT BEDSIDE AT THIS TIME BY DR MURPHY, AND PRICILLA, RN AT BEDSIDE. L TMA DRESSING CLEANSED WITH NS AND DRESSING CHANGE DONE. MEDIHONEY TO BE ORDERED WITH DAILY DRESSING CHANGES
--- NOTE | 2019-10-30 18:15 | NUR ---
TRANSFER REPORT GIVEN TO BRIDGER NURSE IN 3RD FLOOR, AND PATIENT TRANSFERRED TO ROOM 309; NO COMPLAINTS NOTED AT THIS TIME
[2019-10-30] MEDS: ACETAMINOPHEN-CODEINE 300/30MG TAB PO PRN (18:26)
[2019-10-31 03:53] VITALS: BP 131/53
[2019-10-31] MEDS ORDERED: DEXTROSE 50%-WATER 50 ML DISP.SYRIN IV ONE (05:14)
[2019-10-31] MEDS: ACETAMINOPHEN-CODEINE 300/30MG TAB PO PRN (06:24)
[2019-10-31 07:48] VITALS: BP 163/75
[2019-10-31] MEDS: ATORVASTATIN CALCIUM 40 MG TABLET PO SCH (09:11)
[2019-10-31] MEDS: LOSARTAN 50 MG TABLET PO SCH (09:11)
[2019-10-31] MEDS: FAMOTIDINE 20MG TAB 20 MG TAB PO SCH (09:12)
[2019-10-31] MEDS: CARVEDILOL 3.125 MG TABLET PO SCH ×2 (09:12→20:04)
[2019-10-31] MEDS: FUROSEMIDE 40 MG TABLET PO SCH ×2 (09:13→20:04)
[2019-10-31] MEDS: ZOSYN 3.375GM+NS 50ML 50 ML IV SCH ×2 (09:13→20:03)
[2019-10-31] MEDS: FERROUS SULFATE 325 MG TABLET.DR PO SCH (09:13)
[2019-10-31] MEDS: FOLIC ACID/VITAMIN B COMP W-C 1 CAP TAB PO SCH (09:14)
[2019-10-31] MEDS: HYDROMORPHONE HCL 0.5 MG/0.5 ML ML IVP PRN ×2 (09:30→21:19)
[2019-10-31 11:32] VITALS: BP 138/66
[2019-10-31] MEDS ORDERED: ONDANSETRON HCL 4 MG/2 ML VIAL IVP PRN (11:45)
[2019-10-31] MEDS: HONEY 1 APPL/ML TUBE TP SCH (15:48)
[2019-10-31 16:47] VITALS: BP 125/71
[2019-10-31 20:29] VITALS: BP 135/74
[2019-11-01 00:26] VITALS: BP 151/68
[2019-11-01] MEDS: ACETAMINOPHEN-CODEINE 300/30MG TAB PO PRN (01:16)
[2019-11-01 03:52] VITALS: BP 140/67
[2019-11-01 04:57] LABS: BASOPHILS % (AUTO) 0.8 % (0.0-5.0); EOSINOPHILS % (AUTO) 4.2 % (0.0-8.0); HEMATOCRIT 31.3 % (42-54); LYMPHOCYTES % (AUTO) 19.4 % (21.0-51.0); MEAN CORPUSCULAR HEMOGLOBIN 32.4 pg (27.0-33.0); MEAN CORPUSCULAR HGB CONC 32.9 g/dL (32.0-36.0); MEAN CORPUSCULAR VOLUME 98.4 fL (79-99); MONOCYTES % (AUTO) 11.3 % (3.0-13.0); PLATELET COUNT (AUTO) 138 K/uL (130-400); RED BLOOD CELL COUNT(AUTO) 3.18 MIL/uL (4.50-6.20); WHITE BLOOD COUNT (AUTO) 6.7 K/uL (4.8-10.8)
[2019-11-01] MEDS: HYDROMORPHONE HCL 0.5 MG/0.5 ML ML IVP PRN ×2 (05:15→11:31)
[2019-11-01 05:41] LABS: ALBUMIN 2.5 g/dL (3.5-5.0); BILIRUBIN,TOTAL 1.6 mg/dL (0.2-1.0); CREATININE 5.4 mg/dL (0.5-1.5); PHOSPHORUS 7.4 mg/dL (2.5-4.9); POTASSIUM 4.4 mmol/L (3.5-5.1)
[2019-11-01 08:00] VITALS: BP 129/64
[2019-11-01] MEDS: ZOSYN 3.375GM+NS 50ML 50 ML IV SCH (08:35)
[2019-11-01] MEDS: LOSARTAN 50 MG TABLET PO SCH (09:00)
[2019-11-01] MEDS: FUROSEMIDE 40 MG TABLET PO SCH (09:00)
[2019-11-01] MEDS: CARVEDILOL 3.125 MG TABLET PO SCH (09:00)
[2019-11-01] MEDS: HONEY 1 APPL/ML TUBE TP SCH (09:30)
[2019-11-01] MEDS: FERROUS SULFATE 325 MG TABLET.DR PO SCH (11:34)
[2019-11-01] MEDS: FOLIC ACID/VITAMIN B COMP W-C 1 CAP TAB PO SCH (11:34)
[2019-11-01] MEDS: ATORVASTATIN CALCIUM 40 MG TABLET PO SCH (11:34)
[2019-11-01] MEDS: FAMOTIDINE 20MG TAB 20 MG TAB PO SCH (11:35)
[2019-11-01 12:00] VITALS: BP 140/64
[2019-11-01] MEDS: VANCOMYCIN 1GM+NS 250ML 250 ML IV SCH (14:08)
--- NOTE | 2019-11-01 14:56 | NUR ---
REPORT GIVEN TO LEE ANN EVANS PT HAVING HEMODIALYSIS AT THIS TIME TO DISHCARGE POST DIALYSIS VIA EMS, NANNETTE VERBALIZED UNDERSTANDING.
[2019-11-01 16:00] VITALS: BP 143/70
[2019-11-01] MEDS ORDERED: SEVELAMER HCL 800 MG TABLET PO SCH (17:00)
--- NOTE | 2019-11-01 18:00 | NUR ---
DISCHARGE TO [facility] VIA EMS
--- NOTE | 2019-11-01 18:00 | NUR ---
DISCHARGE: TO [facility]IA EMS Addendum: 11/02/19 at 1014 by OPHELIA JESUS RN CM Amended: Links added.
--- NOTE | 2019-11-01 20:00 | NUR ---
discharge EMS HERE TO TAKE PATIENT TO [facility] [place] [facility]. PATIENT TAKEN WITH ALL BELONGINGS AT SIDE AND DISCHARGE PAPERWORK.
--- NOTE | 2019-11-02 10:14 | NUR ---
DISCHARGE TO [facility] VIA EMS
== END 2019-11-01 20:00 | DRG 239 ==
LOC: EDH 13:32 → EDHIP 13:33 → 4CH 10-27 14:33 → 3BH 10-30 18:16
PROVIDERS: ADMIT Hospitalist; ATTEND Hospitalist
PROC: 0Y6N0ZC Detachment at Left Foot, Partial 3rd Ray, Open Approach (ICD-10-PCS; 2019-10-27)
PROC: 0Y6N0ZD Detachment at Left Foot, Partial 4th Ray, Open Approach (ICD-10-PCS; 2019-10-27)
PROC: 0Y6N0ZF Detachment at Left Foot, Partial 5th Ray, Open Approach (ICD-10-PCS; 2019-10-27)
PROC: 0JBR0ZZ Excision of Left Foot Subcutaneous Tissue and Fascia, Open Approach (ICD-10-PCS; 2019-10-27)
PROC: 5A1D70Z Performance of Urinary Filtration, Intermittent, Less than 6 Hours Per Day (ICD-10-PCS; 2019-10-27)
PROC: 0Y6N0Z9 Detachment at Left Foot, Partial 1st Ray, Open Approach (ICD-10-PCS; principal; 2019-10-27 12:40)
PROC: 0Y6N0ZB Detachment at Left Foot, Partial 2nd Ray, Open Approach (ICD-10-PCS; 2019-10-27 12:40)
PROC: 5A1D70Z Performance of Urinary Filtration, Intermittent, Less than 6 Hours Per Day (ICD-10-PCS; 2019-10-30)
PROC: 5A1D70Z Performance of Urinary Filtration, Intermittent, Less than 6 Hours Per Day (ICD-10-PCS; 2019-11-01)
DX: E11.52 Type 2 diabetes mellitus with diabetic peripheral angiopathy with gangrene (principal); N18.6 End stage renal disease; I12.0 Hypertensive chronic kidney disease with stage 5 chronic kidney disease or end stage renal disease; L03.116 Cellulitis of left lower limb; I96 Gangrene, not elsewhere classified; M86.8X7 Other osteomyelitis, ankle and foot; L97.429 Non-pressure chronic ulcer of left heel and midfoot with unspecified severity; E11.621 Type 2 diabetes mellitus with foot ulcer; E11.22 Type 2 diabetes mellitus with diabetic chronic kidney disease; I25.10 Atherosclerotic heart disease of native coronary artery without angina pectoris; E78.5 Hyperlipidemia, unspecified; D63.8 Anemia in other chronic diseases classified elsewhere; E11.69 Type 2 diabetes mellitus with other specified complication; Z20.828 Contact with and (suspected) exposure to other viral communicable diseases; R53.81 Other malaise; H54.62 Unqualified visual loss, left eye, normal vision right eye; Z99.2 Dependence on renal dialysis; Z89.431 Acquired absence of right foot; Z88.2 Allergy status to sulfonamides; Z88.8 Allergy status to other drugs, medicaments and biological substances; Z95.1 Presence of aortocoronary bypass graft; Z83.3 Family history of diabetes mellitus; Z82.49 Family history of ischemic heart disease and other diseases of the circulatory system
CPT/HCPCS: 36415; 74018; 80048; 80053; 80202; 81001; 82948; 83735; 84100; 85025; 87070; 87076; 87205; 88307; 88311; 90935; 93005; G0378; G0463; J1170; J1644; J2001; J2250; J2405; J2543; J2704; J3010; J3370; J3490; J7030; J7050; J7070; U0003

== ENCOUNTER → 2019-11-29 | Outpatient (CLI) | payer MEDICARE | END | disposition home or self-care (01) | LOC: WHH 09:15 | PROVIDERS: ATTEND Podiatrist Foot & Ankle Surgery | DX: T87.89 Other complications of amputation stump (principal); E11.621 Type 2 diabetes mellitus with foot ulcer; L97.523 Non-pressure chronic ulcer of other part of left foot with necrosis of muscle; L97.421 Non-pressure chronic ulcer of left heel and midfoot limited to breakdown of skin; E11.52 Type 2 diabetes mellitus with diabetic peripheral angiopathy with gangrene; I96 Gangrene, not elsewhere classified; E11.22 Type 2 diabetes mellitus with diabetic chronic kidney disease; I12.0 Hypertensive chronic kidney disease with stage 5 chronic kidney disease or end stage renal disease; N18.6 End stage renal disease; I25.10 Atherosclerotic heart disease of native coronary artery without angina pectoris; K21.9 Gastro-esophageal reflux disease without esophagitis; E78.5 Hyperlipidemia, unspecified; H54.61 Unqualified visual loss, right eye, normal vision left eye; I42.9 Cardiomyopathy, unspecified; Z95.1 Presence of aortocoronary bypass graft; Z90.49 Acquired absence of other specified parts of digestive tract; Z88.6 Allergy status to analgesic agent; Z88.8 Allergy status to other drugs, medicaments and biological substances; Z95.0 Presence of cardiac pacemaker; Y83.5 Amputation of limb(s) as the cause of abnormal reaction of the patient, or of later complication, without mention of misadventure at the time of the procedure | CPT/HCPCS: G0463 ==

== ENCOUNTER → 2019-12-13 | Outpatient (CLI) | payer MEDICARE ==
[~2019-12-13] MED LIST changes: +LIDOCAINE HCL 4% LTA SOL 4 ML VIAL TP ONE
== END | disposition home or self-care (01) ==
LOC: WHH 09:00
PROVIDERS: ATTEND Podiatrist Foot & Ankle Surgery
DX: T87.89 Other complications of amputation stump (principal); E11.621 Type 2 diabetes mellitus with foot ulcer; L97.523 Non-pressure chronic ulcer of other part of left foot with necrosis of muscle; L97.421 Non-pressure chronic ulcer of left heel and midfoot limited to breakdown of skin; E11.52 Type 2 diabetes mellitus with diabetic peripheral angiopathy with gangrene; I96 Gangrene, not elsewhere classified; E11.22 Type 2 diabetes mellitus with diabetic chronic kidney disease; I12.0 Hypertensive chronic kidney disease with stage 5 chronic kidney disease or end stage renal disease; N18.6 End stage renal disease; I25.10 Atherosclerotic heart disease of native coronary artery without angina pectoris; K21.9 Gastro-esophageal reflux disease without esophagitis; E78.5 Hyperlipidemia, unspecified; H54.61 Unqualified visual loss, right eye, normal vision left eye; I42.9 Cardiomyopathy, unspecified; Z95.1 Presence of aortocoronary bypass graft; Z90.49 Acquired absence of other specified parts of digestive tract; Z88.6 Allergy status to analgesic agent; Z88.8 Allergy status to other drugs, medicaments and biological substances; Z95.0 Presence of cardiac pacemaker; Y83.5 Amputation of limb(s) as the cause of abnormal reaction of the patient, or of later complication, without mention of misadventure at the time of the procedure
CPT/HCPCS: 11042; 11045; A6209

== ENCOUNTER → 2019-12-27 | Outpatient (CLI) | payer MEDICARE ==
[~2019-12-27] MED LIST changes: -LIDOCAINE HCL 4% LTA SOL 4 ML VIAL TP ONE
== END | disposition home or self-care (01) ==
LOC: WHH 09:00
PROVIDERS: ATTEND Podiatrist Foot & Ankle Surgery
DX: T87.89 Other complications of amputation stump (principal); E11.621 Type 2 diabetes mellitus with foot ulcer; L97.523 Non-pressure chronic ulcer of other part of left foot with necrosis of muscle; L97.421 Non-pressure chronic ulcer of left heel and midfoot limited to breakdown of skin; E11.52 Type 2 diabetes mellitus with diabetic peripheral angiopathy with gangrene; I96 Gangrene, not elsewhere classified; E11.22 Type 2 diabetes mellitus with diabetic chronic kidney disease; I12.0 Hypertensive chronic kidney disease with stage 5 chronic kidney disease or end stage renal disease; N18.6 End stage renal disease; I25.10 Atherosclerotic heart disease of native coronary artery without angina pectoris; K21.9 Gastro-esophageal reflux disease without esophagitis; E78.5 Hyperlipidemia, unspecified; H54.61 Unqualified visual loss, right eye, normal vision left eye; I42.9 Cardiomyopathy, unspecified; Z95.1 Presence of aortocoronary bypass graft; Z90.49 Acquired absence of other specified parts of digestive tract; Z88.6 Allergy status to analgesic agent; Z88.8 Allergy status to other drugs, medicaments and biological substances; Z95.0 Presence of cardiac pacemaker; Y83.5 Amputation of limb(s) as the cause of abnormal reaction of the patient, or of later complication, without mention of misadventure at the time of the procedure
CPT/HCPCS: 11042; 11045; A6209

== ENCOUNTER 2020-02-04 09:40 | Inpatient (IN) | payer MEDICARE ==
[~2020-02-04] VITALS: Ht 165.1 cm; Wt 67.6 kg
[~2020-02-04 09:40] MED LIST changes: -CARV12.511 PO; -FURO40TA5 PO; -HYDR-4153 PO; -IBUP-2077 PO; -LOSA25TA41 PO; -TRAM50TA4 PO
--- NOTE | 2020-02-04 10:30 | NUR ---
PATIENT RECEIVED FROM [facility] TODAY VIA EMS FOR LEFT BKA BY DR. HANNA. REPORT RECEIVED FROM LEE ANN IRVIN AT 0900 FROM [facility]. WILL NOTIFY DR. HAHN AND DR. HANNA UPON ADMISSION. PATIENT STABLE AT THIS TIME.
[2020-02-04 11:00] VITALS: BP 151/99
[2020-02-04 12:54] LABS: BASOPHILS % (AUTO) 1.1 % (0.0-5.0); EOSINOPHILS % (AUTO) 4.3 % (0.0-8.0); HEMATOCRIT 31.3 % (42-54); LYMPHOCYTES % (AUTO) 19.1 % (21.0-51.0); MEAN CORPUSCULAR HEMOGLOBIN 31.4 pg (27.0-33.0); MEAN CORPUSCULAR HGB CONC 31.9 g/dL (32.0-36.0); MEAN CORPUSCULAR VOLUME 98.4 fL (79-99); MONOCYTES % (AUTO) 10.7 % (3.0-13.0); NEUTROPHILS % (AUTO) 64.7 % (40.0-77.0); PLATELET COUNT (AUTO) 164 K/uL (130-400); RED BLOOD CELL COUNT(AUTO) 3.18 MIL/uL (4.50-6.20); RED CELL DISTRIBUTION WIDTH 19.2 % (11.0-15.5); WHITE BLOOD COUNT (AUTO) 7.3 K/uL (4.8-10.8)
[2020-02-04] MEDS ORDERED: GLUCAGON 1MG KIT 1 MG ML IM PRN (13:00)
[2020-02-04] MEDS ORDERED: DEXTROSE 50%-WATER 50 ML DISP.SYRIN IV PRN (13:00)
[2020-02-04 13:08] LABS: POTASSIUM 4.3 mmol/L (3.5-5.1)
[2020-02-04 13:12] LABS: ALBUMIN 2.4 g/dL (3.5-5.0); BILIRUBIN,TOTAL 1.2 mg/dL (0.2-1.0); TOTAL PROTEIN, SERUM 8.2 g/dL (6.0-8.3)
[2020-02-04] MEDS ORDERED: RENAL DOSE IV SCH (13:45)
[2020-02-04 13:54] LABS: CREATININE 3.2 mg/dL (0.5-1.5)
[2020-02-04] MEDS ORDERED: NITR0.4T SL (14:20)
[2020-02-04] MEDS ORDERED: PIPE3.3712 IV (14:20)
[2020-02-04] MEDS ORDERED: HYDR-4154 PO (14:20)
[2020-02-04] MEDS ORDERED: [UNRECOGNIZED DRUG - CODE] IV (14:20)
[2020-02-04] MEDS ORDERED: FERR325T22 PO (14:20)
[2020-02-04] MEDS ORDERED: FOLI0.8T2 PO (14:20)
[2020-02-04] MEDS ORDERED: PVANC1GM IV (14:20)
[2020-02-04] MEDS ORDERED: GUAI100S13 PO (14:20)
[2020-02-04] MEDS ORDERED: FAMO20TA8 PO (14:20)
[2020-02-04] MEDS ORDERED: FURO40TA5 PO (14:20)
[2020-02-04] MEDS ORDERED: ASPI-1197 PO (14:20)
[2020-02-04] MEDS ORDERED: ATOR10TA PO (14:20)
[2020-02-04] MEDS ORDERED: HYDR-3421 PO (14:20)
[2020-02-04] MEDS ORDERED: LACT10SO9 PO (14:20)
[2020-02-04] MEDS ORDERED: SANTO TP (14:20)
[2020-02-04] MEDS ORDERED: POLY17PO4 PO (14:20)
[2020-02-04] MEDS ORDERED: EMLA30C TP (14:20)
[2020-02-04] MEDS ORDERED: ACET1TAB25 PO (14:20)
[2020-02-04] MEDS ORDERED: ONDA4AMP IJ (14:20)
[2020-02-04] MEDS: HYDROMORPHONE HCL 0.5 MG/0.5 ML ML IVP PRN ×2 (15:11→22:36)
[2020-02-04] MEDS: ZOSYN 3.375GM+NS 50ML 50 ML IV SCH (15:11)
[2020-02-04 16:00] VITALS: BP 146/79
[2020-02-04] MEDS: INSULIN HUMULIN R 100 UNIT/ML 3ML SQ SCH ×2 (16:30→20:58)
--- NOTE | 2020-02-04 19:00 | NUR ---
DIALYSIS NURSE Called [facility] dialysis nurse hospice liaison at [phone],to notify pt sched mwf for dialysis,no answer.
[2020-02-04 20:01] VITALS: BP 144/84
--- NOTE | 2020-02-04 22:36 | NUR ---
PAIN Medicated with dilaudid for severe pain to left foot.
--- NOTE | 2020-02-04 23:36 | NUR ---
MED EFFECT Pt verbalized relief of pain.
--- NOTE | 2020-02-04 23:52 | NUR ---
RE BP Notified Mati Harrison Np re pt.s high bp.
[2020-02-05] VITALS (7 sets, daily range): BP systolic 119–189; BP diastolic 72–108
[2020-02-05] MEDS ORDERED: NITROGLYCERIN 0.4 MG SL TAB SL PRN
--- NOTE | 2020-02-05 01:00 | NUR ---
CALM Pt resting quietly,no distress noted.
[2020-02-05] MEDS: ZOSYN 3.375GM+NS 50ML 50 ML IV SCH ×2 (02:00→15:05)
[2020-02-05] MEDS ORDERED: HYDRALAZINE HCL 25 MG TABLET PO PRN (02:45)
--- NOTE | 2020-02-05 05:00 | NUR ---
DIALYSIS notified dialysis nurse re dialysis schedule.
[2020-02-05] MEDS: HYDROMORPHONE HCL 0.5 MG/0.5 ML ML IVP PRN ×3 (05:14→20:10)
--- NOTE | 2020-02-05 05:21 | NUR ---
BATHED Pt was bathed per artificial marble worker,npo for left bka today.
[2020-02-05 06:05] LABS: BASOPHILS % (AUTO) 1.4 % (0.0-5.0); EOSINOPHILS % (AUTO) 4.4 % (0.0-8.0); LYMPHOCYTES % (AUTO) 23.1 % (21.0-51.0); MEAN CORPUSCULAR HGB CONC 31.6 g/dL (32.0-36.0); MEAN CORPUSCULAR VOLUME 98.2 fL (79-99); MONOCYTES % (AUTO) 11.9 % (3.0-13.0); NEUTROPHILS % (AUTO) 58.9 % (40.0-77.0); PLATELET COUNT (AUTO) 202 K/uL (130-400); RED BLOOD CELL COUNT(AUTO) 3.26 MIL/uL (4.50-6.20); RED CELL DISTRIBUTION WIDTH 19.3 % (11.0-15.5)
[2020-02-05] MEDS: INSULIN HUMULIN R 100 UNIT/ML 3ML SQ SCH ×4 (06:09→21:00)
[2020-02-05 06:24] LABS: CREATININE 3.6 mg/dL (0.5-1.5); POTASSIUM 4.7 mmol/L (3.5-5.1)
[2020-02-05] MEDS: FUROSEMIDE 40 MG TABLET PO SCH ×3 (09:00→20:09)
[2020-02-05] MEDS: FERROUS SULFATE 325 MG TABLET.DR PO SCH ×3 (09:00→20:09)
[2020-02-05] MEDS: ASPIRIN 81MG TAB.CHEW PO SCH ×2 (09:00→11:09)
[2020-02-05] MEDS: Vitamin B Complex/Vit C/Folic Acid PO SCH ×2 (09:00→11:09)
--- NOTE | 2020-02-05 12:21 | NUR ---
[facility] CM met with pt in room discussed dc plans. Pt is semi-independent prior to admission, lives at home with 3 adult sons and their family. Pt has walker, wheelchair, shower chair, provider daily unable to recall how many hours, active /[facility] for wound care daily. Denies any other equipments/services, feels safe to go back home, pt doesn't drive, sons and family able to assist with transportation and needs as necessary. DC plan to home once stable. CM to continue to follow up. Addendum: 02/05/20 at 1224 by TITI ZELAYA LVN CM Amended: Links added.
[2020-02-05] MEDS: LOSARTAN 50 MG TABLET PO SCH (16:30)
[2020-02-05] MEDS ORDERED: HEPARIN SODIUM 5000UNIT/ML 1ML VIAL ONE (18:59)
--- NOTE | 2020-02-05 20:00 | NUR ---
DIALYSIS Dialyzed for 3 hrs removed 3 liters as per report,Kimberli well.
[2020-02-05] MEDS: CARVEDILOL 6.25 MG TABLET PO SCH (20:09)
[2020-02-05] MEDS: ATORVASTATIN CALCIUM 10 MG TABLET PO SCH (20:09)
--- NOTE | 2020-02-05 21:30 | NUR ---
PAGED SURGEON Paged Dr Dc thru answering service re cardiology clearance.
--- NOTE | 2020-02-05 22:39 | NUR ---
CALL BACK DR Dc called back, informed him re Dr Chin order,he said he will probably do surgery on WEDNESDAY,he will call floor tomorrow to give orders.
[2020-02-06] MEDS: ZOSYN 3.375GM+NS 50ML 50 ML IV SCH ×2 (01:49→14:29)
[2020-02-06] MEDS: HYDROMORPHONE HCL 0.5 MG/0.5 ML ML IVP PRN ×4 (01:49→22:56)
[2020-02-06 03:45] VITALS: BP 127/77
[2020-02-06 04:43] LABS: CHOLESTEROL 148 mg/dL (<200); HDL CHOLESTEROL 46 mg/dL (29-71); LDL DIRECT 82 mg/dL (0-99); TRIGLYCERIDES 62 mg/dL (30-200)
[2020-02-06] MEDS: INSULIN HUMULIN R 100 UNIT/ML 3ML SQ SCH ×4 (05:51→21:00)
[2020-02-06 07:50] LABS: BASOPHILS % (AUTO) 1.3 % (0.0-5.0); EOSINOPHILS % (AUTO) 6.9 % (0.0-8.0); HEMATOCRIT 29.2 % (42-54); LYMPHOCYTES % (AUTO) 20.4 % (21.0-51.0); MEAN CORPUSCULAR HEMOGLOBIN 31.6 pg (27.0-33.0); MEAN CORPUSCULAR HGB CONC 32.5 g/dL (32.0-36.0); MONOCYTES % (AUTO) 12.2 % (3.0-13.0); NEUTROPHILS % (AUTO) 58.9 % (40.0-77.0); PLATELET COUNT (AUTO) 183 K/uL (130-400); RED BLOOD CELL COUNT(AUTO) 3.01 MIL/uL (4.50-6.20); RED CELL DISTRIBUTION WIDTH 18.8 % (11.0-15.5); WHITE BLOOD COUNT (AUTO) 6.1 K/uL (4.8-10.8)
[2020-02-06 08:09] LABS: POTASSIUM 3.9 mmol/L (3.5-5.1)
[2020-02-06] MEDS ORDERED: ENOXAPARIN SODIUM 30 MG/0.3 ML SQ SCH (09:00)
[2020-02-06] MEDS: Vitamin B Complex/Vit C/Folic Acid PO SCH (09:11)
[2020-02-06] MEDS: CARVEDILOL 6.25 MG TABLET PO SCH ×2 (09:12→21:11)
[2020-02-06] MEDS: FERROUS SULFATE 325 MG TABLET.DR PO SCH ×2 (09:12→21:10)
[2020-02-06] MEDS: ASPIRIN 81MG TAB.CHEW PO SCH (09:12)
[2020-02-06] MEDS: LOSARTAN 50 MG TABLET PO SCH (09:12)
[2020-02-06] MEDS: PANTOPRAZOLE SODIUM 40 MG TABLET.DR PO SCH (09:13)
[2020-02-06] MEDS: FUROSEMIDE 40 MG TABLET PO SCH ×2 (09:13→21:10)
[2020-02-06 11:30] VITALS: BP 140/80
--- NOTE | 2020-02-06 14:28 | NUR ---
RD NOTIFICATION Pt admitted due to left foot osteomyelitis requiring BKA As per EMR pt will undergo BKA on 02/07/20 Pt's previous EMR from October 2019 shows a wt of 72kg. Current wt of 65 kg. This shows a 10% wt change in 3 months. Indicating severe wt loss. 90% UBW indicating mild malnutrition PO intake as per EMR 50% RD RECOMMENDATION: Continue current diet order of Renal HD. Pt has hx of DM, however BG levels are WNL. Consider adding 75 gm CC modifier if BG increase. Consider Nepro BID if PO intake does not improve to >75% after BKA Pt is at mild-moderate nutritional risk. IBW post BKA is of 153 lbs (70 kg) RD will continue to follow pt's status Contact as nutritional concerns arise. LABS: NA 134, CL 96, BUN 26, CREAT 3.0, GFR 22, ALB 2.4, TOT PRO 8.2, TOT CA 9.6, BG 98 Addendum: 02/06/20 at [address] Amended: Links added.
[2020-02-06 16:04] VITALS: BP 168/92
[2020-02-06 20:00] VITALS: BP 131/75
--- NOTE | 2020-02-06 20:00 | NUR ---
LEFT FOOT DRESSING Dressing to left foot hasn't been changed,pt refused to have it changed.Said,"Tomorrow".
[2020-02-06] MEDS: ATORVASTATIN CALCIUM 10 MG TABLET PO SCH (21:11)
[2020-02-06 23:40] VITALS: BP 105/62
[2020-02-07] VITALS (23 sets, daily range): BP systolic 105–151; BP diastolic 42–83
--- NOTE | 2020-02-07 00:18 | NUR ---
NPO Advised pt and staff to keep Npo after midnight for possible Left Bka in am.Dr Dc did not leave order for surgery yet as per day shift report.
[2020-02-07] MEDS: HYDROXYZINE HCL 25 MG TABLET PO PRN (00:26)
--- NOTE | 2020-02-07 00:29 | NUR ---
ITCHING Pt c/o of itching,Atarax given.
--- NOTE | 2020-02-07 01:29 | NUR ---
MED EFFECT Pt asleep,arousable.No itching noted or reported.
[2020-02-07] MEDS: ZOSYN 3.375GM+NS 50ML 50 ML IV SCH ×2 (02:24→14:47)
[2020-02-07] MEDS: INSULIN HUMULIN R 100 UNIT/ML 3ML SQ SCH ×4 (05:45→21:00)
[2020-02-07 06:08] LABS: CREATININE 4.2 mg/dL (0.5-1.5); POTASSIUM 4.3 mmol/L (3.5-5.1)
--- NOTE | 2020-02-07 07:54 | NUR ---
CALL RECEIVED FROM [facility] REGARDING SURGERY. PER ASHLEY, DR. HANNA IS PLANNING TO MOVE FORWARD WITH SURGERY TODAY, NOT SURE WHAT TIME. KEEP PATIENT NPO AND DR. HANNA WILL CALL TO SCHEDULE THE SURGERY LATER TODAY. PATIENT MADE AWARE.
[2020-02-07] MEDS: FUROSEMIDE 40 MG TABLET PO SCH ×2 (09:00→20:45)
[2020-02-07] MEDS: ASPIRIN 81MG TAB.CHEW PO SCH (09:00)
[2020-02-07] MEDS: LOSARTAN 50 MG TABLET PO SCH (10:43)
[2020-02-07] MEDS: Vitamin B Complex/Vit C/Folic Acid PO SCH (10:43)
[2020-02-07] MEDS: PANTOPRAZOLE SODIUM 40 MG TABLET.DR PO SCH (10:43)
[2020-02-07] MEDS: FERROUS SULFATE 325 MG TABLET.DR PO SCH ×2 (10:43→20:44)
[2020-02-07] MEDS: CARVEDILOL 6.25 MG TABLET PO SCH ×2 (10:44→20:47)
[2020-02-07] MEDS: HYDROMORPHONE HCL 0.5 MG/0.5 ML ML IVP PRN ×2 (14:47→22:40)
--- NOTE | 2020-02-07 15:30 | NUR ---
PATIENT TRANSFERRED TO [facility] FOR LEFT BKA BY DR. HANNA.
[2020-02-07] MEDS ORDERED: LIDOCAINE PF 2% 5ML ABBOJECT ONE (15:57)
[2020-02-07] MEDS ORDERED: SUCCINYLCHOLINE CHLORIDE 20 MG/ML 10 ML VIAL ONE (15:57)
[2020-02-07] MEDS ORDERED: DEXAMETHASONE SOD PHOSPHATE 10MG/ML 1ML VIAL ONE (15:57)
[2020-02-07] MEDS ORDERED: PROPOFOL 10 MG/ML 20ML VIAL IV ONE (15:58)
[2020-02-07] MEDS ORDERED: MIDAZOLAM HCL 1 MG/ML 2ML VIAL ONE (15:58)
[2020-02-07] MEDS ORDERED: GLYCOPYRROLATE 1 MG/5 ML SYRINGE ONE (15:58)
[2020-02-07] MEDS ORDERED: ROCURONIUM 10MG/1ML SYR 10 MG/ML ML ONE (15:58)
[2020-02-07] MEDS ORDERED: ONDANSETRON HCL 4 MG/2 ML VIAL ONE (15:58)
[2020-02-07] MEDS ORDERED: NEOSTIGMINE 5MG/5ML SYR IV ONE (15:58)
[2020-02-07] MEDS ORDERED: FENTANYL CITRATE PF 50 MCG/1 ML 2ML VIAL ONE (15:59)
[2020-02-07] MEDS ORDERED: EPHEDRINE SULFATE 50 MG/ML AMPULE ONE (16:07)
[2020-02-07] MEDS ORDERED: DURAMORPH PF1 MG/ML 10ML AMP IV ONE (16:08)
[2020-02-07] MEDS ORDERED: ALBUMIN (HUMAN) 5% 500 ML IV ONE (16:09)
[2020-02-07] MEDS ORDERED: SODIUM CHLORIDE 0.9% 1000ML 1,000 ML IV ONE (16:16)
[2020-02-07] MEDS: ATORVASTATIN CALCIUM 10 MG TABLET PO SCH (20:45)
[2020-02-08] VITALS (9 sets, daily range): BP systolic 108–153; BP diastolic 58–97
[2020-02-08] MEDS ORDERED: HYDROMORPHONE 4MG/ML 1ML VIAL IVP PRN (00:30)
[2020-02-08] MEDS ORDERED: HYDROMORPHONE HCL 0.5 MG/0.5 ML ML IVP ONE (00:45)
[2020-02-08] MEDS: ZOSYN 3.375GM+NS 50ML 50 ML IV SCH ×2 (02:25→13:08)
[2020-02-08] MEDS ORDERED: HYDROMORPHONE HCL 0.5 MG/0.5 ML ML ONE ×6 (03:57→21:30)
[2020-02-08] MEDS: HYDROXYZINE HCL 25 MG TABLET PO PRN ×2 (04:06→08:25)
[2020-02-08 05:05] LABS: HEMATOCRIT 27.5 % (42-54); MEAN CORPUSCULAR HEMOGLOBIN 31.2 pg (27.0-33.0); MEAN CORPUSCULAR VOLUME 97.5 fL (79-99); RED BLOOD CELL COUNT(AUTO) 2.82 MIL/uL (4.50-6.20); RED CELL DISTRIBUTION WIDTH 18.8 % (11.0-15.5); WHITE BLOOD COUNT (AUTO) 8.7 K/uL (4.8-10.8)
[2020-02-08 05:13] LABS: POTASSIUM 4.7 mmol/L (3.5-5.1)
[2020-02-08] MEDS: INSULIN HUMULIN R 100 UNIT/ML 3ML SQ SCH ×4 (06:37→21:00)
[2020-02-08] MEDS: FUROSEMIDE 40 MG TABLET PO SCH ×2 (08:25→19:47)
[2020-02-08] MEDS: CARVEDILOL 6.25 MG TABLET PO SCH ×2 (08:25→19:48)
[2020-02-08] MEDS: Vitamin B Complex/Vit C/Folic Acid PO SCH (08:25)
[2020-02-08] MEDS: ASPIRIN 81MG TAB.CHEW PO SCH (08:25)
[2020-02-08] MEDS: FERROUS SULFATE 325 MG TABLET.DR PO SCH ×2 (08:25→19:47)
[2020-02-08] MEDS: PANTOPRAZOLE SODIUM 40 MG TABLET.DR PO SCH (08:26)
[2020-02-08] MEDS: LOSARTAN 50 MG TABLET PO SCH (08:26)
[2020-02-08] MEDS: KETOROLAC TROMETHAMINE 30MG/ML IV PRN ×2 (09:13→19:47)
[2020-02-08 10:18] LABS: ALBUMIN 2.6 g/dL (3.5-5.0); BILIRUBIN,DIRECT 0.8 mg/dL (0.0-0.3); BILIRUBIN,TOTAL 1.2 mg/dL (0.2-1.0); TOTAL PROTEIN, SERUM 7.7 g/dL (6.0-8.3)
[2020-02-08] MEDS ORDERED: TRAMADOL HCL 50 MG TABLET PO SCH (11:45)
[2020-02-08] MEDS ORDERED: HEPARIN SODIUM 5000UNIT/ML 1ML VIAL ONE (12:00)
[2020-02-08] MEDS ORDERED: GABAPENTIN 100 MG CAPSULE ONE (13:06)
[2020-02-08] MEDS: GABAPENTIN 100 MG CAPSULE PO SCH (13:15)
[2020-02-08] MEDS: ATORVASTATIN CALCIUM 10 MG TABLET PO SCH (19:47)
[2020-02-08 23:03] LABS: BASOPHILS % (AUTO) 0.5 % (0.0-5.0); EOSINOPHILS % (AUTO) 5.8 % (0.0-8.0); HEMATOCRIT 24.5 % (42-54); LYMPHOCYTES % (AUTO) 17.2 % (21.0-51.0); MEAN CORPUSCULAR HEMOGLOBIN 31.7 pg (27.0-33.0); MEAN CORPUSCULAR HGB CONC 32.2 g/dL (32.0-36.0); MEAN CORPUSCULAR VOLUME 98.4 fL (79-99); MONOCYTES % (AUTO) 12.6 % (3.0-13.0); NEUTROPHILS % (AUTO) 63.7 % (40.0-77.0); PLATELET COUNT (AUTO) 123 K/uL (130-400); RED BLOOD CELL COUNT(AUTO) 2.49 MIL/uL (4.50-6.20); RED CELL DISTRIBUTION WIDTH 19.3 % (11.0-15.5); WHITE BLOOD COUNT (AUTO) 5.7 K/uL (4.8-10.8)
[2020-02-08 23:34] LABS: CREATININE 3.9 mg/dL (0.5-1.5); MAGNESIUM 2.2 mg/dL (1.80-2.40); POTASSIUM 3.8 mmol/L (3.5-5.1)
[2020-02-09] MEDS ORDERED: HYDROMORPHONE HCL 0.5 MG/0.5 ML ML ONE (01:44)
[2020-02-09] MEDS: ZOSYN 3.375GM+NS 50ML 50 ML IV SCH (01:45)
[2020-02-09 04:00] VITALS: BP 114/62
--- NOTE | 2020-02-09 04:43 | NUR ---
TELEMETRY PAGED REMOTE COMPUTER TERMINAL OPERATOR HOSPITALIST CONCHIS VERAS WAREHOUSE WORKER 2ND SHIFT AND INFORMED HER THAT TELE HAD NOTIFIED ME PATIENT HAD 30 SECONDS OF COMPLETE HEART BLOCK. PATIENT CURRENTLY LAYING IN BED STATING THAT HE FEELS FINE BP 150/58 HR 63. NO ORDERS RECEIVED AT THIS TIME STATED TO CONTINUE TO MONITOR PATIENT AND TO LET AM SHIFT KNOW THAT WAY THEY COULD PASS IT ON TO AM PHYSICIAN DURING ROUNDS.
[2020-02-09] MEDS: INSULIN HUMULIN R 100 UNIT/ML 3ML SQ SCH ×3 (06:28→21:00)
--- NOTE | 2020-02-09 07:45 | NUR ---
ASSESSMENT NOTE PT IS SITTING UP IN BED [id number], VOICES NO COMPLAINTS OF PAIN AT THIS TIME, DRESSING DRY AND INTACT
[2020-02-09 08:00] VITALS: BP 105/70
[2020-02-09] MEDS: GABAPENTIN 100 MG CAPSULE PO SCH (08:51)
[2020-02-09] MEDS: ASPIRIN 81MG TAB.CHEW PO SCH (08:51)
[2020-02-09] MEDS: Vitamin B Complex/Vit C/Folic Acid PO SCH (08:51)
[2020-02-09] MEDS: FUROSEMIDE 40 MG TABLET PO SCH ×2 (08:52→19:41)
[2020-02-09] MEDS: FERROUS SULFATE 325 MG TABLET.DR PO SCH ×2 (08:52→19:41)
[2020-02-09] MEDS: PANTOPRAZOLE SODIUM 40 MG TABLET.DR PO SCH (08:52)
[2020-02-09] MEDS: LOSARTAN 50 MG TABLET PO SCH (08:55)
--- NOTE | 2020-02-09 09:00 | NUR ---
ROUND DR. HANNA CAME TO SEE PATIENT AT BEDSIDE, PER DR. HANNA PT CAN GO HOME AND SEE HIM IN A WEEK AFTER D/C. DRESSING IS DRY, INTACT AND CHANGED
[2020-02-09] MEDS: KETOROLAC TROMETHAMINE 30MG/ML IV PRN (11:36)
[2020-02-09 12:36] VITALS: BP 115/46
--- NOTE | 2020-02-09 12:47 | NUR ---
MIAN BARRIOS CAME TO SEE PT AT BEDSIDE.
[2020-02-09 17:18] VITALS: BP 115/78
[2020-02-09] MEDS: ATORVASTATIN CALCIUM 10 MG TABLET PO SCH (19:41)
[2020-02-09 19:54] VITALS: BP 127/68
[2020-02-10] VITALS (7 sets, daily range): BP systolic 92–144; BP diastolic 25–79
--- NOTE | 2020-02-10 03:47 | NUR ---
ROUNDS PATIENT RESTING IN BED WITH OU CLOSED. EASILY AROUSED. NO COMPLAINTS OF PAIN VOICED AT THIS TIME. VITALS STABLE. AFEBRILE. RESP EVEN AND UNLABORED. NO SOB NOTED. ON ROOM AIR. DRESSING TO LEFT STUMP DRY AND INTACT. VOIDING WITHOUT DIFFICULTY, USES URINAL. BED REST. FALL PRECAUTIONS IN PLACE DUE TO POOR SAFETY AWARENESS. NO SIGNS OF DISTRESS NOTED. CALL LIGHT WITHIN REACH. WILL CONTINUE TO BE OBSERVED. Addendum: 02/10/20 at 0350 by JUANI VALLES RN RN Amended: Links added.
[2020-02-10 05:46] LABS: HEMATOCRIT 26.7 % (42-54); MEAN CORPUSCULAR HEMOGLOBIN 31.9 pg (27.0-33.0); MEAN CORPUSCULAR HGB CONC 32.6 g/dL (32.0-36.0); MEAN CORPUSCULAR VOLUME 97.8 fL (79-99); RED BLOOD CELL COUNT(AUTO) 2.73 MIL/uL (4.50-6.20); RED CELL DISTRIBUTION WIDTH 20.1 % (11.0-15.5); WHITE BLOOD COUNT (AUTO) 7.7 K/uL (4.8-10.8)
[2020-02-10] MEDS: INSULIN HUMULIN R 100 UNIT/ML 3ML SQ SCH ×4 (05:49→20:21)
[2020-02-10 05:56] LABS: CREATININE 5.4 mg/dL (0.5-1.5); POTASSIUM 4.1 mmol/L (3.5-5.1)
--- NOTE | 2020-02-10 06:31 | NUR ---
DR.USMAN GALEANA CALLED WITH NEW ORDERS FOR LEXISCAN TOMORROW 02/11/20. PATIENT AWARE. NO QUESTIONS OR CONCERNS VOICED AT THIS TIME. CALL LIGHT WITHIN REACH. WILL CONTINUE TO BE OBSERVED. Addendum: 02/10/20 at 0633 by JUANI VALLES RN RN Amended: Links added.
[2020-02-10] MEDS: ASPIRIN 81MG TAB.CHEW PO SCH (09:01)
[2020-02-10] MEDS: FERROUS SULFATE 325 MG TABLET.DR PO SCH ×2 (09:01→20:21)
[2020-02-10] MEDS: FUROSEMIDE 40 MG TABLET PO SCH ×2 (09:01→20:21)
[2020-02-10] MEDS: LOSARTAN 50 MG TABLET PO SCH (09:01)
[2020-02-10] MEDS: PANTOPRAZOLE SODIUM 40 MG TABLET.DR PO SCH (09:01)
[2020-02-10] MEDS: Vitamin B Complex/Vit C/Folic Acid PO SCH (09:01)
[2020-02-10] MEDS: KETOROLAC TROMETHAMINE 30MG/ML IV PRN ×3 (09:07→23:52)
[2020-02-10] MEDS ORDERED: ACETAMINOPHEN EXTRA STRENGTH 500 MG TABLET PO SCH (10:15)
--- NOTE | 2020-02-10 12:10 | NUR ---
HD PT STARTED DIALYSIS
[2020-02-10] MEDS ORDERED: EPOETIN ALFA 10,000 UNIT/ML VIAL SQ SCH (15:00)
[2020-02-10] MEDS ORDERED: HEPARIN SODIUM 5000UNIT/ML 1ML VIAL ONE (15:08)
[2020-02-10] MEDS ORDERED: HEPARIN SODIUM 5000UNIT/ML 1ML VIAL SQ SCH (15:30)
--- NOTE | 2020-02-10 15:43 | NUR ---
HD DIALYSIS DONE, REMOVED 1.5 LITERS IN 3 HRS.
[2020-02-10] MEDS: ATORVASTATIN CALCIUM 10 MG TABLET PO SCH (20:20)
[2020-02-11 04:27] VITALS: BP 153/69
[2020-02-11] MEDS: KETOROLAC TROMETHAMINE 30MG/ML IV PRN ×2 (05:19→12:39)
[2020-02-11 05:33] LABS: HEMATOCRIT 26.5 % (42-54); MEAN CORPUSCULAR HEMOGLOBIN 31.9 pg (27.0-33.0); MEAN CORPUSCULAR HGB CONC 32.5 g/dL (32.0-36.0); MEAN CORPUSCULAR VOLUME 98.1 fL (79-99); RED BLOOD CELL COUNT(AUTO) 2.7 MIL/uL (4.50-6.20); RED CELL DISTRIBUTION WIDTH 19.9 % (11.0-15.5)
[2020-02-11 05:44] LABS: POTASSIUM 3.5 mmol/L (3.5-5.1)
[2020-02-11] MEDS: INSULIN HUMULIN R 100 UNIT/ML 3ML SQ SCH ×4 (05:58→19:30)
[2020-02-11 08:00] VITALS: BP 132/59
[2020-02-11] MEDS: FERROUS SULFATE 325 MG TABLET.DR PO SCH ×2 (09:00→19:43)
[2020-02-11] MEDS: FUROSEMIDE 40 MG TABLET PO SCH ×2 (09:00→19:43)
[2020-02-11] MEDS: PANTOPRAZOLE SODIUM 40 MG TABLET.DR PO SCH (09:00)
[2020-02-11] MEDS: Vitamin B Complex/Vit C/Folic Acid PO SCH (09:00)
[2020-02-11] MEDS: LOSARTAN 50 MG TABLET PO SCH (09:07)
[2020-02-11] MEDS: ASPIRIN 81MG TAB.CHEW PO SCH (09:07)
[2020-02-11 11:12] VITALS: BP 139/72
[2020-02-11] MEDS ORDERED: REGADENOSON 0.4 MG/5 ML PF SYG IVP SCH (12:00)
[2020-02-11 16:27] VITALS: BP 144/53
[2020-02-11] MEDS: ATORVASTATIN CALCIUM 10 MG TABLET PO SCH (19:43)
[2020-02-11] MEDS: HYDROMORPHONE HCL 0.5 MG/0.5 ML ML IVP PRN (19:53)
[2020-02-11 20:49] VITALS: BP 110/55
[2020-02-11 23:45] VITALS: BP 90/70
[2020-02-12] MEDS: HYDROMORPHONE HCL 0.5 MG/0.5 ML ML IVP PRN (01:49)
[2020-02-12 04:55] VITALS: BP 123/52
[2020-02-12 05:33] LABS: BASOPHILS % (AUTO) 0.8 % (0.0-5.0); HEMATOCRIT 27.8 % (42-54); LYMPHOCYTES % (AUTO) 24.6 % (21.0-51.0); MEAN CORPUSCULAR HEMOGLOBIN 32.2 pg (27.0-33.0); MEAN CORPUSCULAR HGB CONC 32.7 g/dL (32.0-36.0); MEAN CORPUSCULAR VOLUME 98.2 fL (79-99); MONOCYTES % (AUTO) 13.5 % (3.0-13.0); NEUTROPHILS % (AUTO) 51.8 % (40.0-77.0); PLATELET COUNT (AUTO) 153 K/uL (130-400); RED BLOOD CELL COUNT(AUTO) 2.83 MIL/uL (4.50-6.20); RED CELL DISTRIBUTION WIDTH 19.9 % (11.0-15.5); WHITE BLOOD COUNT (AUTO) 7.4 K/uL (4.8-10.8)
[2020-02-12 05:47] LABS: CREATININE 5.1 mg/dL (0.5-1.5); POTASSIUM 3.7 mmol/L (3.5-5.1)
[2020-02-12] MEDS: INSULIN HUMULIN R 100 UNIT/ML 3ML SQ SCH ×4 (06:07→20:59)
[2020-02-12] MEDS: KETOROLAC TROMETHAMINE 30MG/ML IV PRN ×3 (07:09→20:53)
[2020-02-12 08:00] VITALS: BP 102/62
[2020-02-12] MEDS ORDERED: ENOXAPARIN SODIUM 30 MG/0.3 ML SQ SCH (09:00)
[2020-02-12] MEDS: FERROUS SULFATE 325 MG TABLET.DR PO SCH ×2 (09:53→20:53)
[2020-02-12] MEDS: Vitamin B Complex/Vit C/Folic Acid PO SCH (09:53)
[2020-02-12] MEDS: FUROSEMIDE 40 MG TABLET PO SCH ×2 (09:53→20:53)
[2020-02-12] MEDS: ASPIRIN 81MG TAB.CHEW PO SCH (09:53)
[2020-02-12] MEDS: PANTOPRAZOLE SODIUM 40 MG TABLET.DR PO SCH (09:54)
[2020-02-12] MEDS: LOSARTAN 50 MG TABLET PO SCH (09:54)
[2020-02-12 11:00] VITALS: BP 112/67
--- NOTE | 2020-02-12 13:23 | NUR ---
CM NOTE/DCP DENIED SNF MET WITH PATIENT IN ROOM AND INFORMED OF SNF REFERRAL FOR IV ANTIBIOTICS AND WOUND CARE. PER PATIENT, WISHES TO RETURN HOME WITH HH IF POSSIBLE OR LTAC SO THAT DIALYSIS COULD BE DONE INHOUSE. THIS REPORTED TO PRIMARY NURSE, CHICHI NANCE, TO INFORM DR. SANFORD WHEN ROUNDING. WILL WAIT FOR RECOMMENDATIONS. CM TO FOLLOW UP.
--- NOTE | 2020-02-12 14:39 | NUR ---
RD FOLLOW UP Pt is s/p left LISY 02/07/20. Pt is currently on a Renal HD diet and consuming an average of 75-100% of meals. Pt is pending lexiscan stress test results. RD RECOMMENDATION: When medically feasible, add 75 gm CC modifier to current diet order due to hx of DM Monitor BG levels, PO intake, and labs ProMod [address] will continue to follow LABS: CL 100, BUN 30, CREAT 5.9, GFR 12, BG 111, TOT CA 8.8, ALB 2.6, TOT PRO 7.7 Addendum: 02/12/20 at [address] Amended: Links added.
--- NOTE | 2020-02-12 15:41 | NUR ---
CM NOTE/[facility] DCP MET WITH PATIENT IN ROOM, MICHELLE SIGNED FOR [facility], SERVICE PRIOR TO HOSPITALIZATION. CALLED HH, PER JOSSE, OK FOR PATIENT TO RETURN BUT NEED CLINICAL PACKET FOR REVIEW AND WOUND CARE ORDERS. CLINICAL PACKET FAXED TO [phone]. PRIMARY NURSE, CHICHI NANCE, AND DR. HAHN AWARE OF DC PLAN.
[2020-02-12 16:00] VITALS: BP 154/70
[2020-02-12] MEDS ORDERED: LOSA50TA2 PO (17:32)
[2020-02-12] MEDS ORDERED: PANT40TA PO (17:32)
[2020-02-12 19:20] VITALS: BP_SYST 171; BP_DIAS 78; BP_DIAS 87
--- NOTE | 2020-02-12 19:45 | NUR ---
HOME HEALTH NURSE REPORT GIVEN TO [facility] NURSE MAKEDA AT APPROX 1930 HOURS. ADVISED HIM OF WOUND CARE ORDERS FROM DR. HANNA. NO ADDITIONAL QUESTIONS AT THIS TIME. MAKEDA PROVIDED HIS CELL # [phone], TO CALL IF ANY QUESTIONS.
--- NOTE | 2020-02-12 19:47 | NUR ---
[facility] RESULTS CALLED DR. Porfirio BYRD TO ADVISE OF LEXISCAN RESULTS. DR. BYRD STATED OK TO DISCHARGE FROM CARDIOLOGY STANDPOINT, AND FOR PATIENT TO FOLLOW UP WITH EITHER DR. PARISI IN [place] OR [facility].
[2020-02-12] MEDS ORDERED: HEPARIN SODIUM 5000UNIT/ML 1ML VIAL ONE (19:51)
--- NOTE | 2020-02-12 20:32 | NUR ---
NOTE RECEIVED REPORT FROM DIALYSIS NURSE DOROTHY. COMPLETED TREATMENT. PATIENT WAS DIALYSED FOR 3 HRS AND REMOVED 2 LITERS OF FLUID.
[2020-02-12] MEDS: ATORVASTATIN CALCIUM 10 MG TABLET PO SCH (20:53)
--- NOTE | 2020-02-12 20:53 | NUR ---
NOTE PATIENT SAYS IS ALOT OF PAIN AND WANTS PAIN MEDICATION. MEDICATED WITH TORADOL AND WILL BE BACK TO RE-ASSESS PAIN AND BP. IF STABLE EXPLAINED TO PATIENT, WILL BE ABLE TO CALL HIS RIDE TO LEAVE.
[2020-02-12 21:50] VITALS: BP 150/60
--- NOTE | 2020-02-12 21:50 | NUR ---
NOTE 2149 PATIENT REPORTS PAIN WAS RELIEVED WITH THE PAIN MEDICATION. HAD VEGETABLE PICKER CHECK BP. REMOVED IV AND CHANGED DRESSING TO LEFT STUMP. CLEANED ARE WITH INCISION WITH STERILE SALINE. BURT INTACT. STUMP SKIN AREA BRUISED. INCISION WELL APPROXIMATED AND NO ACTIVE DRAINAGE NOTED. COVERED WITH DRY 4X4 STERILE GAUZE AND KERLIX WRAP. SECURED WITH TAPE.
[2020-02-12 22:07] LABS: HEPATITIS A ANTIBODY IGM Negative (Negative); HEPATITIS B CORE IGM Negative (Negative); HEPATITIS Bs ANTIGEN SCREEN P Negative (Negative)
--- NOTE | 2020-02-12 22:08 | NUR ---
NOTE ASSISTED PATIENT TO DRESS. HE SAYS HIS RIDE IS WAITING ALREADY [facility]. REVIEWED HIS DISCHARGE PACKET. EXPLAINED TO HIM HE HAS TO CALL TOMORROW TO MAKE HIS APPOINTMENTS WITH THE PHYSICIANS AND POINTED TO [facility]IGHLIGHTED AREAS WHERE INFORMATION IS IN PACKET. HE ACKNOWLEDGED UNDERSTANDING AND SAID HE WOULD MAKE CALLS TOMORROW. ANSWERED HIS QUESTIONS/CONCERNS. PACKED UP HIS BELONGINGS AND JUNE CANDIE TOOK HIM VIA WHEELCHAIR TO HIS TRANSPORT.
== END 2020-02-12 22:05 | disposition home health service (06) | DRG 474 ==
LOC: 3BH 09:48
PROVIDERS: ADMIT Internal Medicine; ATTEND Internal Medicine
PROC: 5A1D70Z Performance of Urinary Filtration, Intermittent, Less than 6 Hours Per Day (ICD-10-PCS; 2020-02-05)
PROC: 0Y6J0Z1 Detachment at Left Lower Leg, High, Open Approach (ICD-10-PCS; principal; 2020-02-07 16:52)
PROC: 5A1D70Z Performance of Urinary Filtration, Intermittent, Less than 6 Hours Per Day (ICD-10-PCS; 2020-02-08)
PROC: 5A1D70Z Performance of Urinary Filtration, Intermittent, Less than 6 Hours Per Day (ICD-10-PCS; 2020-02-10)
PROC: 5A1D70Z Performance of Urinary Filtration, Intermittent, Less than 6 Hours Per Day (ICD-10-PCS; 2020-02-12)
DX: T87.44 Infection of amputation stump, left lower extremity (principal); N18.6 End stage renal disease; A41.9 Sepsis, unspecified organism; I50.23 Acute on chronic systolic (congestive) heart failure; E11.52 Type 2 diabetes mellitus with diabetic peripheral angiopathy with gangrene; I96 Gangrene, not elsewhere classified; I13.2 Hypertensive heart and chronic kidney disease with heart failure and with stage 5 chronic kidney disease, or end stage renal disease; M86.8X7 Other osteomyelitis, ankle and foot; I44.2 Atrioventricular block, complete; I25.5 Ischemic cardiomyopathy; E11.40 Type 2 diabetes mellitus with diabetic neuropathy, unspecified; D64.9 Anemia, unspecified; D69.6 Thrombocytopenia, unspecified; E11.22 Type 2 diabetes mellitus with diabetic chronic kidney disease; E11.621 Type 2 diabetes mellitus with foot ulcer; E11.69 Type 2 diabetes mellitus with other specified complication; E78.5 Hyperlipidemia, unspecified; H54.62 Unqualified visual loss, left eye, normal vision right eye; I08.1 Rheumatic disorders of both mitral and tricuspid valves; I25.10 Atherosclerotic heart disease of native coronary artery without angina pectoris; I27.20 Pulmonary hypertension, unspecified; L97.529 Non-pressure chronic ulcer of other part of left foot with unspecified severity; Z20.828 Contact with and (suspected) exposure to other viral communicable diseases; R53.81 Other malaise; Y83.5 Amputation of limb(s) as the cause of abnormal reaction of the patient, or of later complication, without mention of misadventure at the time of the procedure; Z74.01 Bed confinement status; Z79.82 Long term (current) use of aspirin; Z79.899 Other long term (current) drug therapy; Z82.49 Family history of ischemic heart disease and other diseases of the circulatory system; Z83.3 Family history of diabetes mellitus; Z91.19 Patient's noncompliance with other medical treatment and regimen; Z95.1 Presence of aortocoronary bypass graft; Z99.2 Dependence on renal dialysis; Z88.1 Allergy status to other antibiotic agents; Z88.2 Allergy status to sulfonamides
CPT/HCPCS: 36415; 70450; 71045; 78452; 80048; 80053; 80061; 80074; 80076; 82948; 83735; 85025; 85027; 87426; 90935; 93005; 93017; 96374; A9500; G0378; J0330; J0885; J1100; J1170; J1644; J1885; J2001; J2250; J2274; J2405; J2543; J2704; J2710; J2785; J3010; J3490; J7030; P9045; U0003

== ENCOUNTER 2020-03-04 17:31 | Inpatient (IN) | payer MEDICARE ==
[~2020-03-04] VITALS: Ht 165.1 cm; Wt 64.2 kg
[~2020-03-04 17:31] MED LIST changes: +ASPI-1197 PO; +ATOR10TA PO; +EMLA30C TP; +FAMO20TA8 PO; -FERR-82 PO; +FERR325T22 PO; +FOLI0.8T2 PO; +FURO40TA5 PO; +GUAI100S13 PO; +HYDR-3421 PO; +LACT10SO9 PO; +LOSA50TA2 PO; +NITR0.4T SL; +ONDA4AMP IJ; +PANT40TA PO; +POLY17PO4 PO
[2020-03-04] MEDS ORDERED: LIDOCAINE HCL 2% VISCOUS 15 ML UDCUP ONE (18:57)
[2020-03-04] MEDS ORDERED: ONDANSETRON HCL 4 MG/2 ML VIAL ONE (19:49)
[2020-03-04] MEDS ORDERED: VANCOMYCIN 1GM+NS 250ML 250 ML IV ONE (19:49)
[2020-03-04] MEDS ORDERED: ZOSYN 3.375GM+NS 50ML 50 ML IV ONE (19:49)
[2020-03-04] MEDS ORDERED: MORPHINE SULFATE 4 MG/1ML SYG ONE (19:50)
[2020-03-04 20:07] LABS: BASOPHILS % (AUTO) 0.8 % (0.0-5.0); EOSINOPHILS % (AUTO) 15.2 % (0.0-8.0); HEMATOCRIT 30.2 % (42-54); MEAN CORPUSCULAR HGB CONC 33.1 g/dL (32.0-36.0); MEAN CORPUSCULAR VOLUME 99.7 fL (79-99); MONOCYTES % (AUTO) 10.9 % (3.0-13.0); NEUTROPHILS % (AUTO) 61.7 % (40.0-77.0); PLATELET COUNT (AUTO) 179 K/uL (130-400); RED BLOOD CELL COUNT(AUTO) 3.03 MIL/uL (4.50-6.20); RED CELL DISTRIBUTION WIDTH 18.1 % (11.0-15.5)
[2020-03-04 20:42] LABS: CREATININE 3.4 mg/dL (0.5-1.5); POTASSIUM 5.2 mmol/L (3.5-5.1)
[2020-03-04 20:47] LABS: ALBUMIN 2.7 g/dL (3.5-5.0); BILIRUBIN,TOTAL 1.5 mg/dL (0.2-1.0)
[2020-03-04 21:10] LABS: INR 1.18 (0.85-1.15); PROTHROMBIN TIME 12.4 SEC (9.6-11.6)
[2020-03-04 21:11] LABS: PARTIAL THROMBOPLASTIN TIME 35.7 SEC (26.3-35.5)
[2020-03-04] MEDS ORDERED: ASPIRIN 325 MG TABLET ONE (21:54)
[2020-03-04] MEDS ORDERED: ACETAMINOPHEN 325 MG TAB PO PRN ×2 (23:00)
[2020-03-04] MEDS ORDERED: VANCOMYCIN PROTOCOL PER PHARMACY IV SCH (23:00)
[2020-03-04] MEDS ORDERED: ONDANSETRON HCL 4 MG/2 ML VIAL IV PRN (23:00)
[2020-03-05] MEDS: ZOSYN 3.375GM+NS 50ML 50 ML IV SCH ×2 (04:00→16:00)
[2020-03-05 04:26] LABS: BASOPHILS % (AUTO) 0.8 % (0.0-5.0); HEMATOCRIT 30.3 % (42-54); MEAN CORPUSCULAR HEMOGLOBIN 32.7 pg (27.0-33.0); MEAN CORPUSCULAR HGB CONC 32.7 g/dL (32.0-36.0); MONOCYTES % (AUTO) 11.3 % (3.0-13.0); NEUTROPHILS % (AUTO) 66.5 % (40.0-77.0); PLATELET COUNT (AUTO) 166 K/uL (130-400); RED BLOOD CELL COUNT(AUTO) 3.03 MIL/uL (4.50-6.20); RED CELL DISTRIBUTION WIDTH 18.1 % (11.0-15.5)
[2020-03-05 05:03] LABS: ALBUMIN 2.6 g/dL (3.5-5.0); BILIRUBIN,TOTAL 1.4 mg/dL (0.2-1.0); CREATININE 3.6 mg/dL (0.5-1.5); POTASSIUM 5.1 mmol/L (3.5-5.1); TOTAL PROTEIN, SERUM 7.3 g/dL (6.0-8.3)
[2020-03-05] MEDS ORDERED: HEPARIN SODIUM 5000UNIT/ML 1ML VIAL SQ SCH (06:00)
[2020-03-05] MEDS ORDERED: MORPHINE SULFATE 2 MG/ML 1ML SYG ONE ×2 (06:00→09:33)
[2020-03-05] MEDS ORDERED: ONDANSETRON HCL 4 MG/2 ML VIAL ONE (06:00)
[2020-03-05] MEDS ORDERED: HEPARIN SODIUM 5000UNIT/ML 1ML VIAL ONE (06:18)
[2020-03-05] MEDS ORDERED: ZOSYN 3.375GM+NS 50ML 50 ML IV ONE ×2 (08:49→16:18)
[2020-03-05] MEDS: ASPIRIN 81MG TAB.CHEW PO SCH (09:00)
[2020-03-05] MEDS: FAMOTIDINE/PF 20 MG/2 ML VIAL IV SCH (09:00)
[2020-03-05] MEDS: METOPROLOL TARTRATE 25 MG TAB PO SCH ×2 (09:15→20:27)
[2020-03-05] MEDS ORDERED: HEPARIN 25000 UNITS/250 ML D5W 250 ML IV SCH (09:15)
[2020-03-05] MEDS ORDERED: ATORVASTATIN CALCIUM 20 MG TABLET PO SCH (09:15)
[2020-03-05] MEDS: CLOPIDOGREL BISULFATE 75 MG TAB PO SCH (09:30)
[2020-03-05] MEDS ORDERED: NITROGLYCERIN 0.4 MG SL TAB SL PRN (09:30)
[2020-03-05] MEDS ORDERED: LACTULOSE 20 GM/30 ML UDCUP PO PRN (09:30)
[2020-03-05] MEDS ORDERED: ATORVASTATIN CALCIUM 40 MG TABLET ONE (09:33)
[2020-03-05] MEDS ORDERED: ASPIRIN 81MG TAB.CHEW ONE (09:33)
[2020-03-05] MEDS ORDERED: HEPARIN 25000 UNITS/250 ML D5W 250 ML IV ONE (09:49)
[2020-03-05] MEDS ORDERED: CLOPIDOGREL BISULFATE 75 MG TAB ONE (10:33)
[2020-03-05] MEDS ORDERED: VANCOMYCIN 500MG+NS 100ML 100 ML IV SCH (14:00)
[2020-03-05 15:14] LABS: INR 1.17 (0.85-1.15); PROTHROMBIN TIME 12.3 SEC (9.6-11.6)
[2020-03-05 15:16] LABS: PARTIAL THROMBOPLASTIN TIME 35.6 SEC (26.3-35.5)
[2020-03-05 17:14] VITALS: BP 146/85
[2020-03-05] MEDS: MORPHINE SULFATE 2 MG/ML 1ML SYG IVP PRN ×2 (17:25→22:10)
[2020-03-05] MEDS: ONDANSETRON HCL 4 MG/2 ML VIAL IV PRN ×2 (17:25→17:41)
[2020-03-05 20:06] VITALS: BP 120/73
[2020-03-05 20:17] LABS: INR 1.22 (0.85-1.15); PROTHROMBIN TIME 12.8 SEC (9.6-11.6)
[2020-03-05 20:19] LABS: PARTIAL THROMBOPLASTIN TIME 43.7 SEC (26.3-35.5)
[2020-03-05 23:17] VITALS: BP 108/60
[2020-03-06] MEDS: MORPHINE SULFATE 2 MG/ML 1ML SYG IVP PRN ×6 (02:02→23:22)
[2020-03-06 03:03] VITALS: BP 97/66
[2020-03-06 03:16] LABS: BASOPHILS % (AUTO) 0.9 % (0.0-5.0); EOSINOPHILS % (AUTO) 5.6 % (0.0-8.0); HEMATOCRIT 30.3 % (42-54); MEAN CORPUSCULAR HEMOGLOBIN 33.2 pg (27.0-33.0); MEAN CORPUSCULAR HGB CONC 32.7 g/dL (32.0-36.0); MEAN CORPUSCULAR VOLUME 101.7 fL (79-99); MONOCYTES % (AUTO) 11.4 % (3.0-13.0); NEUTROPHILS % (AUTO) 63.7 % (40.0-77.0); PLATELET COUNT (AUTO) 198 K/uL (130-400); RED BLOOD CELL COUNT(AUTO) 2.98 MIL/uL (4.50-6.20); RED CELL DISTRIBUTION WIDTH 17.8 % (11.0-15.5); WHITE BLOOD COUNT (AUTO) 7.7 K/uL (4.8-10.8)
[2020-03-06 03:39] LABS: ALBUMIN 2.4 g/dL (3.5-5.0); BILIRUBIN,TOTAL 1.1 mg/dL (0.2-1.0); CREATININE 4.5 mg/dL (0.5-1.5); PHOSPHORUS 7.4 mg/dL (2.5-4.9); POTASSIUM 5.1 mmol/L (3.5-5.1); TOTAL PROTEIN, SERUM 7.7 g/dL (6.0-8.3)
[2020-03-06] MEDS: ZOSYN 3.375GM+NS 50ML 50 ML IV SCH ×2 (04:11→17:18)
[2020-03-06 08:00] VITALS: BP 106/73
[2020-03-06] MEDS ORDERED: SODIUM CHLORIDE 0.9% 1000ML 1,000 ML IV PRN (08:30)
[2020-03-06] MEDS ORDERED: 0.9% SODIUM CHLORIDE 1000 ML IV BAG IV PRN (08:30)
[2020-03-06] MEDS ORDERED: HEPARIN SODIUM 5000UNIT/ML 1ML VIAL IJ PRN ×2 (08:30)
[2020-03-06] MEDS ORDERED: NITROGLYCERIN 0.4 MG SL TAB SL PRN (08:30)
[2020-03-06] MEDS ORDERED: PHARMACY COMMUNICATION MISC PRN (08:30)
[2020-03-06] MEDS ORDERED: LIDOCAINE HCL-MPF 1% 2ML VIAL IJ PRN (08:30)
[2020-03-06] MEDS ORDERED: ACETAMINOPHEN 325 MG TAB PO PRN (08:30)
[2020-03-06] MEDS: LIDOCAINE/PRILOCAINE CREAM 30 GM TUBE TP SCH (09:00)
[2020-03-06] MEDS: METOPROLOL TARTRATE 25 MG TAB PO SCH ×2 (09:00→20:21)
[2020-03-06] MEDS: ASPIRIN 81MG TAB.CHEW PO SCH (11:24)
[2020-03-06] MEDS: CLOPIDOGREL BISULFATE 75 MG TAB PO SCH (11:25)
[2020-03-06] MEDS: ATORVASTATIN CALCIUM 40 MG TABLET PO SCH (11:25)
[2020-03-06] MEDS: FAMOTIDINE/PF 20 MG/2 ML VIAL IV SCH (11:26)
[2020-03-06 11:56] VITALS: BP 98/70
[2020-03-06] MEDS ORDERED: VANCOMYCIN 500MG+NS 100ML 100 ML IV SCH (15:00)
[2020-03-06 15:05] LABS: INR 1.14 (0.85-1.15); PROTHROMBIN TIME 12.1 SEC (9.6-11.6)
[2020-03-06 15:07] LABS: PARTIAL THROMBOPLASTIN TIME 58.3 SEC (26.3-35.5)
[2020-03-06 16:00] VITALS: BP 104/70
[2020-03-06] MEDS: VANCOMYCIN 1GM+NS 250ML 250 ML IV SCH (16:43)
[2020-03-06 19:30] VITALS: BP 97/79
[2020-03-06] MEDS: SEVELAMER HCL 800 MG TABLET PO SCH (20:21)
[2020-03-06 20:48] LABS: INR 1.17 (0.85-1.15); PROTHROMBIN TIME 12.3 SEC (9.6-11.6)
[2020-03-06 20:49] LABS: PARTIAL THROMBOPLASTIN TIME 56.6 SEC (26.3-35.5)
[2020-03-06] MEDS: HYDROXYZINE HCL 25 MG TABLET PO PRN (22:07)
[2020-03-06] MEDS: ONDANSETRON HCL 4 MG/2 ML VIAL IV PRN (22:12)
[2020-03-06 23:26] VITALS: BP 136/81
[2020-03-07] MEDS: MORPHINE SULFATE 2 MG/ML 1ML SYG IVP PRN ×2 (03:55→17:46)
[2020-03-07] MEDS: ZOSYN 3.375GM+NS 50ML 50 ML IV SCH ×2 (03:55→16:02)
[2020-03-07 04:00] VITALS: BP 125/82
[2020-03-07 06:12] LABS: HEPATITIS A ANTIBODY IGM Negative (Negative); HEPATITIS B CORE IGM Negative (Negative); HEPATITIS Bs ANTIGEN SCREEN P Negative (Negative)
[2020-03-07 06:18] LABS: BASOPHILS % (AUTO) 0.9 % (0.0-5.0); EOSINOPHILS % (AUTO) 5.3 % (0.0-8.0); HEMATOCRIT 32.4 % (42-54); LYMPHOCYTES % (AUTO) 21.7 % (21.0-51.0); MEAN CORPUSCULAR HEMOGLOBIN 32.3 pg (27.0-33.0); MEAN CORPUSCULAR HGB CONC 31.8 g/dL (32.0-36.0); MEAN CORPUSCULAR VOLUME 101.6 fL (79-99); MONOCYTES % (AUTO) 12.7 % (3.0-13.0); PLATELET COUNT (AUTO) 215 K/uL (130-400); RED BLOOD CELL COUNT(AUTO) 3.19 MIL/uL (4.50-6.20); RED CELL DISTRIBUTION WIDTH 17.5 % (11.0-15.5); WHITE BLOOD COUNT (AUTO) 7.9 K/uL (4.8-10.8)
[2020-03-07 06:46] LABS: ALBUMIN 2.4 g/dL (3.5-5.0); BILIRUBIN,TOTAL 1.2 mg/dL (0.2-1.0); CREATININE 3.4 mg/dL (0.5-1.5); POTASSIUM 4.5 mmol/L (3.5-5.1); TOTAL PROTEIN, SERUM 7.8 g/dL (6.0-8.3)
[2020-03-07] MEDS: SEVELAMER HCL 800 MG TABLET PO SCH ×3 (08:00→16:02)
[2020-03-07 08:17] VITALS: BP 128/67
[2020-03-07 11:00] VITALS: BP 149/72
[2020-03-07] MEDS: HYDROXYZINE HCL 25 MG TABLET PO SCH ×2 (12:00→20:07)
[2020-03-07] MEDS: ATORVASTATIN CALCIUM 40 MG TABLET PO SCH (12:22)
[2020-03-07] MEDS: FAMOTIDINE/PF 20 MG/2 ML VIAL IV SCH (12:22)
[2020-03-07] MEDS: ASPIRIN 81MG TAB.CHEW PO SCH (12:22)
[2020-03-07] MEDS: HYDROXYZINE HCL 25 MG TABLET PO PRN ×2 (12:23→17:45)
[2020-03-07] MEDS: METOPROLOL TARTRATE 25 MG TAB PO SCH ×2 (12:23→20:07)
[2020-03-07] MEDS: CLOPIDOGREL BISULFATE 75 MG TAB PO SCH (12:24)
[2020-03-07] MEDS: LIDOCAINE/PRILOCAINE CREAM 30 GM TUBE TP SCH (12:25)
[2020-03-07 19:00] VITALS: BP 101/54
[2020-03-08] VITALS (7 sets, daily range): BP systolic 111–124; BP diastolic 45–83
[2020-03-08] MEDS: MORPHINE SULFATE 2 MG/ML 1ML SYG IVP PRN ×3 (01:56→18:18)
[2020-03-08 02:23] LABS: APPEARANCE,URINE Clear (CLEAR); BILIRUBIN,URINE Negative (NEGATIVE); COLOR,URINE Dark Yellow (YELLOW); GLUCOSE, URINE (UA) Negative (NEGATIVE); KETONES,URINE Negative (NEGATIVE); LEUKOCYTE ESTERASE ,URINE Moderate (NEGATIVE); NITRATE,URINE Negative (NEGATIVE); OCCULT BLOOD,URINE Moderate (NEGATIVE); PROTEIN,URINE 300 mg/dL (NEGATIVE)
[2020-03-08 03:15] LABS: BACTERIA,URINE Few /HPF (None Seen); SQUAMOUS EPITHELIAL CELL,UR Few /HPF (0-2)
[2020-03-08] MEDS: ZOSYN 3.375GM+NS 50ML 50 ML IV SCH ×2 (04:43→18:02)
[2020-03-08 04:56] LABS: BASOPHILS % (AUTO) 1.1 % (0.0-5.0); EOSINOPHILS % (AUTO) 5.8 % (0.0-8.0); HEMATOCRIT 34.6 % (42-54); LYMPHOCYTES % (AUTO) 18.6 % (21.0-51.0); MEAN CORPUSCULAR HEMOGLOBIN 32.2 pg (27.0-33.0); MEAN CORPUSCULAR HGB CONC 31.8 g/dL (32.0-36.0); MEAN CORPUSCULAR VOLUME 101.2 fL (79-99); MONOCYTES % (AUTO) 12.2 % (3.0-13.0); NEUTROPHILS % (AUTO) 62.2 % (40.0-77.0); PLATELET COUNT (AUTO) 208 K/uL (130-400); RED BLOOD CELL COUNT(AUTO) 3.42 MIL/uL (4.50-6.20); RED CELL DISTRIBUTION WIDTH 17.6 % (11.0-15.5); WHITE BLOOD COUNT (AUTO) 7.9 K/uL (4.8-10.8)
[2020-03-08 05:15] LABS: INR 1.16 (0.85-1.15); PROTHROMBIN TIME 12.2 SEC (9.6-11.6)
[2020-03-08 05:17] LABS: PARTIAL THROMBOPLASTIN TIME 32.2 SEC (26.3-35.5)
[2020-03-08 05:23] LABS: ALBUMIN 2.4 g/dL (3.5-5.0); BILIRUBIN,TOTAL 1.3 mg/dL (0.2-1.0); CREATININE 4.3 mg/dL (0.5-1.5); POTASSIUM 4.9 mmol/L (3.5-5.1); TOTAL PROTEIN, SERUM 7.4 g/dL (6.0-8.3)
[2020-03-08] MEDS: LIDOCAINE/PRILOCAINE CREAM 30 GM TUBE TP SCH (09:00)
[2020-03-08] MEDS: FAMOTIDINE/PF 20 MG/2 ML VIAL IV SCH (11:26)
[2020-03-08] MEDS: SEVELAMER HCL 800 MG TABLET PO SCH ×3 (11:26→18:03)
[2020-03-08] MEDS: ASPIRIN 81MG TAB.CHEW PO SCH (11:27)
[2020-03-08] MEDS: ATORVASTATIN CALCIUM 40 MG TABLET PO SCH (11:27)
[2020-03-08] MEDS: METOPROLOL TARTRATE 25 MG TAB PO SCH ×2 (11:27→21:00)
[2020-03-08] MEDS: HYDROXYZINE HCL 25 MG TABLET PO SCH ×2 (11:27→21:44)
[2020-03-08] MEDS: CLOPIDOGREL BISULFATE 75 MG TAB PO SCH (11:27)
[2020-03-08] MEDS: VANCOMYCIN 1GM+NS 250ML 250 ML IV SCH (14:00)
[2020-03-08] MEDS ORDERED: ALBUMIN (HUMAN) 25% 100 ML IV SCH (15:45)
[2020-03-09] MEDS: HYDROXYZINE HCL 25 MG TABLET PO PRN (00:04)
[2020-03-09] MEDS: MORPHINE SULFATE 2 MG/ML 1ML SYG IVP PRN ×2 (00:42→10:07)
[2020-03-09] MEDS: ZOSYN 3.375GM+NS 50ML 50 ML IV SCH (03:34)
[2020-03-09 04:07] VITALS: BP 125/62
[2020-03-09 05:39] LABS: BASOPHILS % (AUTO) 0.9 % (0.0-5.0); EOSINOPHILS % (AUTO) 6.3 % (0.0-8.0); LYMPHOCYTES % (AUTO) 18.1 % (21.0-51.0); MEAN CORPUSCULAR HEMOGLOBIN 32.5 pg (27.0-33.0); MEAN CORPUSCULAR HGB CONC 31.9 g/dL (32.0-36.0); MEAN CORPUSCULAR VOLUME 101.9 fL (79-99); MONOCYTES % (AUTO) 12.8 % (3.0-13.0); NEUTROPHILS % (AUTO) 61.8 % (40.0-77.0); PLATELET COUNT (AUTO) 156 K/uL (130-400); RED BLOOD CELL COUNT(AUTO) 3.14 MIL/uL (4.50-6.20); RED CELL DISTRIBUTION WIDTH 17.7 % (11.0-15.5); WHITE BLOOD COUNT (AUTO) 7.8 K/uL (4.8-10.8)
[2020-03-09 06:02] LABS: CREATININE 3.5 mg/dL (0.5-1.5); MAGNESIUM 2.3 mg/dL (1.80-2.40); POTASSIUM 4.1 mmol/L (3.5-5.1)
[2020-03-09 08:00] VITALS: BP 119/63
[2020-03-09] MEDS: SEVELAMER HCL 800 MG TABLET PO SCH ×2 (08:00→12:38)
[2020-03-09] MEDS: LIDOCAINE/PRILOCAINE CREAM 30 GM TUBE TP SCH (09:00)
[2020-03-09] MEDS: METOPROLOL TARTRATE 25 MG TAB PO SCH (09:58)
[2020-03-09] MEDS: FAMOTIDINE/PF 20 MG/2 ML VIAL IV SCH (09:58)
[2020-03-09] MEDS: HYDROXYZINE HCL 25 MG TABLET PO SCH (09:59)
[2020-03-09] MEDS: ATORVASTATIN CALCIUM 40 MG TABLET PO SCH (10:00)
[2020-03-09] MEDS: CLOPIDOGREL BISULFATE 75 MG TAB PO SCH (10:00)
[2020-03-09] MEDS: ASPIRIN 81MG TAB.CHEW PO SCH (10:01)
[2020-03-09 11:00] VITALS: BP 125/75
[2020-03-09] MEDS ORDERED: CLOP75TA14 PO (14:40)
[2020-03-09] MEDS ORDERED: METO25 PO (14:40)
[2020-03-09] MEDS ORDERED: CEPH500B PO (14:40)
[2020-03-09] MEDS ORDERED: SEVE800 PO (14:40)
== END 2020-03-09 15:25 | disposition home health service (06) | DRG 280 ==
LOC: EDH 17:31 → EDHIP 23:11 → 3CH 03-05 17:00
PROVIDERS: ADMIT Family Medicine; ATTEND Family Medicine
PROC: 5A1D70Z Performance of Urinary Filtration, Intermittent, Less than 6 Hours Per Day (ICD-10-PCS; principal; 2020-03-06)
PROC: 5A1D70Z Performance of Urinary Filtration, Intermittent, Less than 6 Hours Per Day (ICD-10-PCS; 2020-03-08)
DX: E11.52 Type 2 diabetes mellitus with diabetic peripheral angiopathy with gangrene (principal); I21.4 Non-ST elevation (NSTEMI) myocardial infarction; N18.6 End stage renal disease; I13.2 Hypertensive heart and chronic kidney disease with heart failure and with stage 5 chronic kidney disease, or end stage renal disease; I50.22 Chronic systolic (congestive) heart failure; N48.22 Cellulitis of corpus cavernosum and penis; N48.29 Other inflammatory disorders of penis; N50.82 Scrotal pain; Z20.828 Contact with and (suspected) exposure to other viral communicable diseases; N48.89 Other specified disorders of penis; N48.21 Abscess of corpus cavernosum and penis; I95.9 Hypotension, unspecified; H54.62 Unqualified visual loss, left eye, normal vision right eye; G89.29 Other chronic pain; M54.9 Dorsalgia, unspecified; E83.39 Other disorders of phosphorus metabolism; E78.5 Hyperlipidemia, unspecified; D64.9 Anemia, unspecified; R53.81 Other malaise; I25.5 Ischemic cardiomyopathy; E11.22 Type 2 diabetes mellitus with diabetic chronic kidney disease; I25.10 Atherosclerotic heart disease of native coronary artery without angina pectoris; Z99.2 Dependence on renal dialysis; Z95.1 Presence of aortocoronary bypass graft; Z91.19 Patient's noncompliance with other medical treatment and regimen; Z89.512 Acquired absence of left leg below knee; Z83.3 Family history of diabetes mellitus; Z82.49 Family history of ischemic heart disease and other diseases of the circulatory system; I25.2 Old myocardial infarction; Z90.49 Acquired absence of other specified parts of digestive tract; Z88.2 Allergy status to sulfonamides
CPT/HCPCS: 36415; 71045; 74176; 80048; 80053; 80074; 80202; 81001; 82550; 82948; 83605; 83735; 83970; 84100; 84145; 84484; 85025; 85610; 85730; 87040; 87077; 87088; 87186; 87426; 90935; 93005; 93930; G0378; J1644; J2270; J2405; J2543; J3370; J3490; J7030; P9046; U0003

== ENCOUNTER 2020-04-30 07:33 | Inpatient (IN) | payer OTHER, MEDICARE ==
[~2020-04-30] VITALS: Ht 154.9 cm; Wt 67.4 kg
[~2020-04-30 07:33] MED LIST changes: -ATOR10TA69 PO; +CEPH500B PO; +CLOP75TA14 PO; -FURO40TA5 PO; -LOSA50TA2 PO; +METO25 PO; +SEVE800 PO
[2020-04-30 08:14] LABS: BASOPHILS % (AUTO) 0.8 % (0.0-5.0); EOSINOPHILS % (AUTO) 2.7 % (0.0-8.0); HEMATOCRIT 43.6 % (42-54); LYMPHOCYTES % (AUTO) 23.9 % (21.0-51.0); MEAN CORPUSCULAR HEMOGLOBIN 31.6 pg (27.0-33.0); MEAN CORPUSCULAR HGB CONC 32.6 g/dL (32.0-36.0); MEAN CORPUSCULAR VOLUME 97.1 fL (79-99); MONOCYTES % (AUTO) 10.5 % (3.0-13.0); NEUTROPHILS % (AUTO) 61.9 % (40.0-77.0); PLATELET COUNT (AUTO) 182 K/uL (130-400); RED BLOOD CELL COUNT(AUTO) 4.49 MIL/uL (4.50-6.20); RED CELL DISTRIBUTION WIDTH 17.7 % (11.0-15.5); WHITE BLOOD COUNT (AUTO) 8.7 K/uL (4.8-10.8)
[2020-04-30 08:28] LABS: BILIRUBIN,TOTAL 2.5 mg/dL (0.2-1.0); CREATININE 4.7 mg/dL (0.5-1.5); TOTAL PROTEIN, SERUM 9.1 g/dL (6.0-8.3)
[2020-04-30] MEDS ORDERED: ASPIRIN 325 MG TABLET ONE (08:36)
[2020-04-30] MEDS ORDERED: NITROGLYCERIN 0.4 MG SL TAB SL ONE (08:36)
[2020-04-30] MEDS ORDERED: MORPHINE 2 MG SYG ONE (08:37)
[2020-04-30 08:38] LABS: POTASSIUM 6.2 mmol/L (3.5-5.1)
[2020-04-30] MEDS ORDERED: SODIUM BICARB 50MEQ 50ML VIAL 50 ML ONE (08:55)
[2020-04-30] MEDS ORDERED: CALCIUM GLUC 1GM/10ML VIAL IV ONE (08:55)
[2020-04-30] MEDS ORDERED: DEXTROSE 50%-WATER 50 ML DISP.SYRIN IV ONE ×2 (08:56→17:57)
[2020-04-30] MEDS ORDERED: INSULIN HUMULIN R 100 UNIT/ML 3ML ONE (08:57)
[2020-04-30] MEDS ORDERED: 0.9%NACL 100ML 100 ML IV ONE (09:11)
[2020-04-30] MEDS ORDERED: HEPARIN 5,000 UNIT VIAL ONE (12:52)
[2020-04-30] MEDS ORDERED: ZOSYN 3.375GM+NS 50ML 50 ML IV ONE (13:24)
[2020-04-30] MEDS: HEPARIN 5,000 UNIT VIAL SQ SCH ×2 (13:45→21:45)
[2020-04-30] MEDS ORDERED: ONDANSETRON 4MG INJ IVP PRN (13:45)
[2020-04-30] MEDS ORDERED: RENAL DOSE IV SCH (13:45)
[2020-04-30] MEDS ORDERED: HYDROMORPHONE 0.5 MG SYG (0.5MG/0.5ML) ONE (14:18)
[2020-04-30] MEDS ORDERED: GLUCAGON 1MG KIT 1 MG ML IM PRN (14:30)
[2020-04-30] MEDS ORDERED: DEXTROSE 50%-WATER 50 ML DISP.SYRIN IV PRN (14:30)
[2020-04-30 14:50] LABS: CREATINE KINASE, TOTAL 107 U/L (21-232); MYOGLOBIN 344 ng/mL (10-92)
[2020-04-30] MEDS ORDERED: VANCOMYCIN 1G 1.25 GM in 0.9% NACL 250ML 250 ML IV SCH (15:30)
[2020-04-30] MEDS: INSULIN HUMULIN R 100 UNIT/ML 3ML SQ SCH ×2 (16:30→21:00)
[2020-04-30] MEDS ORDERED: HYDROMORPHONE 1 MG INJ ONE (19:45)
[2020-04-30] MEDS ORDERED: DiphenhydrAMINE HCL 50 MG/ML VIAL ONE (20:03)
[2020-04-30] MEDS ORDERED: LIDOCAINE/PRILOCAINE CREAM 5GM TUBE TP ONE (20:09)
[2020-04-30] MEDS ORDERED: LIDOCAINE HCL 2% JELLY 5 ML ONE (20:13)
[2020-04-30 20:25] LABS: CREATININE 3.5 mg/dL (0.5-1.5); POTASSIUM 4.9 mmol/L (3.5-5.1)
[2020-04-30] MEDS: ATORVASTATIN 20 MG TABLET PO SCH (21:00)
[2020-04-30] MEDS: METOPROLOL TARTRATE 25 MG TAB PO SCH (21:00)
[2020-04-30] MEDS: FAMOTIDINE 20MG TAB PO SCH (21:00)
[2020-04-30] MEDS ORDERED: DiphenhydrAMINE HCL 25 MG/10 ML ELIXIR UDCUP PO SCH (21:15)
[2020-04-30 22:35] LABS: TROPONIN I 1.06 ng/mL (0.00-0.06)
[2020-05-01] MEDS ORDERED: DEXTROSE 50%-WATER 50 ML DISP.SYRIN IV ONE (02:41)
[2020-05-01 02:47] VITALS: BP 132/85
[2020-05-01] MEDS ORDERED: MELA5CAP PO ×2 (03:14)
[2020-05-01] MEDS ORDERED: HYDR-4153 PO ×2 (03:14)
[2020-05-01] MEDS ORDERED: TRAM50TA4 PO ×2 (03:14)
[2020-05-01] MEDS ORDERED: HYDROMORPHONE 0.5 MG SYG (0.5MG/0.5ML) ONE (05:34)
[2020-05-01] MEDS: HEPARIN 5,000 UNIT VIAL SQ SCH ×3 (05:38→20:05)
[2020-05-01] MEDS ORDERED: HYDROMORPHONE 4MG/ML 1ML VIAL IVP PRN (05:45)
[2020-05-01 06:12] LABS: BASOPHILS % (AUTO) 1.3 % (0.0-5.0); EOSINOPHILS % (AUTO) 7.6 % (0.0-8.0); HEMATOCRIT 37.4 % (42-54); LYMPHOCYTES % (AUTO) 18.6 % (21.0-51.0); MEAN CORPUSCULAR HEMOGLOBIN 32.1 pg (27.0-33.0); MEAN CORPUSCULAR HGB CONC 32.9 g/dL (32.0-36.0); MEAN CORPUSCULAR VOLUME 97.7 fL (79-99); MONOCYTES % (AUTO) 11.1 % (3.0-13.0); NEUTROPHILS % (AUTO) 61.1 % (40.0-77.0); PLATELET COUNT (AUTO) 134 K/uL (130-400); RED BLOOD CELL COUNT(AUTO) 3.83 MIL/uL (4.50-6.20); RED CELL DISTRIBUTION WIDTH 17.7 % (11.0-15.5); WHITE BLOOD COUNT (AUTO) 7.2 K/uL (4.8-10.8)
[2020-05-01 06:20] LABS: ALBUMIN 2.4 g/dL (3.5-5.0); BILIRUBIN,TOTAL 2.3 mg/dL (0.2-1.0); CREATININE 3.7 mg/dL (0.5-1.5); PHOSPHORUS 6.2 mg/dL (2.5-4.9); TOTAL PROTEIN, SERUM 7.9 g/dL (6.0-8.3)
[2020-05-01] MEDS: INSULIN HUMULIN R 100 UNIT/ML 3ML SQ SCH ×4 (07:30→19:56)
[2020-05-01] MEDS ORDERED: ASPIRIN 81MG CHEW TAB PO SCH (09:00)
[2020-05-01] MEDS: METOPROLOL TARTRATE 25 MG TAB PO SCH ×2 (09:08→19:55)
[2020-05-01 10:15] VITALS: BP 120/71
[2020-05-01 12:00] VITALS: BP 122/72
[2020-05-01] MEDS ORDERED: VANCOMYCIN PROTOCOL PER PHARMACY IV SCH (14:15)
[2020-05-01] MEDS: HYDROMORPHONE 0.5 MG SYG (0.5MG/0.5ML) IVP PRN ×2 (14:44→21:54)
[2020-05-01 15:11] LABS: CREATININE 4.1 mg/dL (0.5-1.5); POTASSIUM 5.8 mmol/L (3.5-5.1)
[2020-05-01] MEDS: DiphenhydrAMINE HCL 50 MG/ML VIAL IV PRN (16:49)
[2020-05-01 17:38] VITALS: BP 121/70
[2020-05-01] MEDS ORDERED: COMPOUND IV REFRIGERATED 1 EACH IVSOLN MISC PRN (18:00)
[2020-05-01] MEDS ORDERED: ZOSYN 3.375GM+NS 50ML 50 ML IV ONE (19:40)
[2020-05-01] MEDS ORDERED: HONEY 1 APPL/ML TUBE TP ONE (19:48)
[2020-05-01] MEDS: ATORVASTATIN 20 MG TABLET PO SCH (19:55)
[2020-05-01] MEDS: FAMOTIDINE 20MG TAB PO SCH (19:55)
[2020-05-01] MEDS: ZOSYN 3.375GM+NS 50ML 50 ML IV SCH (19:55)
[2020-05-01 20:00] VITALS: BP 115/72
[2020-05-01] MEDS: BALSAM PERU/CASTOR OIL 60 GM TUBE TP SCH (20:04)
[2020-05-02] VITALS: BP 97/57
[2020-05-02] MEDS: DiphenhydrAMINE HCL 50 MG/ML VIAL IV PRN ×2 (01:16→08:57)
[2020-05-02 04:00] VITALS: BP 137/78
[2020-05-02] MEDS ORDERED: HYDROXYZINE 25 MG TABLET PO PRN (04:00)
[2020-05-02] MEDS ORDERED: LACTULOSE 20 GM/30 ML UDCUP PO PRN (04:00)
[2020-05-02] MEDS ORDERED: TRAMADOL HCL 50 MG TABLET PO PRN (04:00)
[2020-05-02] MEDS: HEPARIN 5,000 UNIT VIAL SQ SCH ×3 (04:08→21:17)
[2020-05-02 06:04] LABS: BASOPHILS % (AUTO) 1.4 % (0.0-5.0); EOSINOPHILS % (AUTO) 5.7 % (0.0-8.0); HEMATOCRIT 37.7 % (42-54); LYMPHOCYTES % (AUTO) 22.9 % (21.0-51.0); MEAN CORPUSCULAR HEMOGLOBIN 31.6 pg (27.0-33.0); MEAN CORPUSCULAR HGB CONC 32.4 g/dL (32.0-36.0); MEAN CORPUSCULAR VOLUME 97.7 fL (79-99); MONOCYTES % (AUTO) 12.6 % (3.0-13.0); NEUTROPHILS % (AUTO) 57.1 % (40.0-77.0); PLATELET COUNT (AUTO) 136 K/uL (130-400); RED BLOOD CELL COUNT(AUTO) 3.86 MIL/uL (4.50-6.20); RED CELL DISTRIBUTION WIDTH 17.5 % (11.0-15.5); WHITE BLOOD COUNT (AUTO) 7.9 K/uL (4.8-10.8)
[2020-05-02] MEDS: INSULIN HUMULIN R 100 UNIT/ML 3ML SQ SCH ×3 (06:24→16:30)
[2020-05-02 06:32] LABS: ALBUMIN 2.5 g/dL (3.5-5.0); BILIRUBIN,TOTAL 2.4 mg/dL (0.2-1.0); CREATININE 4.6 mg/dL (0.5-1.5); MAGNESIUM 2.1 mg/dL (1.80-2.40); POTASSIUM 5.6 mmol/L (3.5-5.1); TOTAL PROTEIN, SERUM 7.8 g/dL (6.0-8.3)
[2020-05-02] MEDS: HYDROMORPHONE 0.5 MG SYG (0.5MG/0.5ML) IVP PRN ×2 (06:32→13:32)
[2020-05-02 08:00] VITALS: BP 99/54
[2020-05-02] MEDS ORDERED: GADODIAMIDE 10 MMOL/20 ML VIAL IV ONE (08:31)
[2020-05-02] MEDS: ZOSYN 3.375GM+NS 50ML 50 ML IV SCH ×2 (08:53→21:14)
[2020-05-02] MEDS: ASPIRIN 81MG CHEW TAB PO SCH (08:53)
[2020-05-02] MEDS: HYDRALAZINE 25MG TABLET PO SCH ×2 (08:54→21:16)
[2020-05-02] MEDS: SEVELAMER HCL 800 MG TABLET PO SCH ×3 (08:54→17:51)
[2020-05-02] MEDS: METOPROLOL TARTRATE 25 MG TAB PO SCH ×2 (08:54→21:14)
[2020-05-02] MEDS: CLOPIDOGREL 75MG TAB PO SCH (08:55)
[2020-05-02] MEDS: HONEY 1 APPL/ML TUBE TP SCH (08:56)
[2020-05-02] MEDS: BALSAM PERU/CASTOR OIL 60 GM TUBE TP SCH ×3 (09:00→21:20)
[2020-05-02 11:40] VITALS: BP 110/72
[2020-05-02] MEDS: ISOSORBIDE MONO 60MG SR TAB PO SCH (14:03)
[2020-05-02 16:00] VITALS: BP 94/26
[2020-05-02] MEDS ORDERED: ALBUMIN (HUMAN) 25% 100 ML IV ONE (16:00)
[2020-05-02] MEDS ORDERED: VANCOMYCIN 750MG + NS 250 ML IV SCH ×2 (18:00)
[2020-05-02 20:00] VITALS: BP 148/68
[2020-05-02 21:07] LABS: HEPATITIS A ANTIBODY IGM Negative (Negative); HEPATITIS B CORE IGM Negative (Negative); HEPATITIS Bs ANTIGEN SCREEN P Negative (Negative)
[2020-05-02] MEDS: ATORVASTATIN 10 MG TABLET PO SCH (21:16)
[2020-05-02] MEDS: MELATONIN 5 MG PO SCH (21:19)
[2020-05-02] MEDS: FAMOTIDINE 20MG TAB PO SCH (21:20)
[2020-05-03] VITALS (8 sets, daily range): BP systolic 88–153; BP diastolic 43–75
[2020-05-03] MEDS: HYDROMORPHONE 0.5 MG SYG (0.5MG/0.5ML) IVP PRN ×3 (02:48→20:11)
[2020-05-03] MEDS: DiphenhydrAMINE HCL 50 MG/ML VIAL IV PRN (03:11)
[2020-05-03] MEDS: HEPARIN 5,000 UNIT VIAL SQ SCH ×3 (06:47→20:12)
[2020-05-03] MEDS: SEVELAMER HCL 800 MG TABLET PO SCH ×3 (08:00→20:11)
[2020-05-03] MEDS: BALSAM PERU/CASTOR OIL 60 GM TUBE TP SCH ×3 (09:00→20:12)
[2020-05-03] MEDS: ASPIRIN 81MG CHEW TAB PO SCH (09:00)
[2020-05-03] MEDS: HONEY 1 APPL/ML TUBE TP SCH (09:00)
[2020-05-03] MEDS: ISOSORBIDE MONO 60MG SR TAB PO SCH (09:00)
[2020-05-03] MEDS: METOPROLOL TARTRATE 25 MG TAB PO SCH ×2 (09:00→20:12)
[2020-05-03] MEDS ORDERED: MIDODRINE HCL 5 MG TABLET PO SCH (10:00)
[2020-05-03] MEDS: ZOSYN 3.375GM+NS 50ML 50 ML IV SCH ×2 (10:14→20:11)
[2020-05-03] MEDS: CLOPIDOGREL 75MG TAB PO SCH (10:15)
[2020-05-03] MEDS: HYDRALAZINE 25MG TABLET PO SCH ×2 (10:21→20:12)
[2020-05-03] MEDS: ATORVASTATIN 10 MG TABLET PO SCH (20:11)
[2020-05-03] MEDS: FAMOTIDINE 20MG TAB PO SCH (20:11)
[2020-05-03] MEDS: MELATONIN 5 MG PO SCH (20:12)
[2020-05-04] MEDS: DiphenhydrAMINE HCL 50 MG/ML VIAL IV PRN (00:17)
[2020-05-04] MEDS: HYDROMORPHONE 0.5 MG SYG (0.5MG/0.5ML) IVP PRN ×2 (02:19→08:27)
[2020-05-04] MEDS: HEPARIN 5,000 UNIT VIAL SQ SCH (04:02)
[2020-05-04 07:15] LABS: HEPATITIS A ANTIBODY IGM Negative (Negative); HEPATITIS B CORE IGM Negative (Negative); HEPATITIS Bs ANTIGEN SCREEN P Negative (Negative)
[2020-05-04 07:23] VITALS: BP 122/80
[2020-05-04] MEDS: ASPIRIN 81MG CHEW TAB PO SCH (08:23)
[2020-05-04] MEDS: CLOPIDOGREL 75MG TAB PO SCH (08:23)
[2020-05-04] MEDS: SEVELAMER HCL 800 MG TABLET PO SCH (08:23)
[2020-05-04] MEDS: HONEY 1 APPL/ML TUBE TP SCH (08:25)
[2020-05-04] MEDS: METOPROLOL TARTRATE 25 MG TAB PO SCH (08:30)
[2020-05-04] MEDS: ISOSORBIDE MONO 60MG SR TAB PO SCH (08:30)
[2020-05-04] MEDS: HYDRALAZINE 25MG TABLET PO SCH (08:30)
[2020-05-04] MEDS: BALSAM PERU/CASTOR OIL 60 GM TUBE TP SCH (08:31)
[2020-05-04] MEDS: ZOSYN 3.375GM+NS 50ML 50 ML IV SCH (09:00)
[2020-05-04] MEDS ORDERED: NITROGLYCERIN 0.4 MG SL TAB SL PRN (10:15)
[2020-05-04] MEDS ORDERED: 0.9%NACL 1000ML IV PRN (10:15)
[2020-05-04] MEDS ORDERED: HEPARIN 5,000 UNIT VIAL IJ PRN ×2 (10:15)
[2020-05-04] MEDS ORDERED: LIDOCAINE HCL-MPF 1% 2ML VIAL IJ PRN (10:15)
[2020-05-04] MEDS ORDERED: 0.9%NACL 1000ML 1,000 ML IV PRN (10:15)
[2020-05-04 10:45] VITALS: BP 116/77
[2020-05-04] MEDS ORDERED: VANCOMYCIN 750MG + NS 250 ML IV SCH ×2 (15:00)
[2020-05-04] MEDS: MELATONIN 5 MG PO SCH (19:17)
== END 2020-05-04 15:15 | disposition home or self-care (01) | DRG 640 ==
LOC: EDH 07:33 → EDHIP 09:31 → 3DH 05-01 00:38
PROVIDERS: ADMIT Family Medicine; ATTEND Family Medicine
PROC: 5A1D70Z Performance of Urinary Filtration, Intermittent, Less than 6 Hours Per Day (ICD-10-PCS; principal; 2020-04-30)
PROC: 5A1D70Z Performance of Urinary Filtration, Intermittent, Less than 6 Hours Per Day (ICD-10-PCS; 2020-05-02)
PROC: 5A1D70Z Performance of Urinary Filtration, Intermittent, Less than 6 Hours Per Day (ICD-10-PCS; 2020-05-04)
DX: E87.70 Fluid overload, unspecified (principal); I21.A1 Myocardial infarction type 2; N18.6 End stage renal disease; I13.2 Hypertensive heart and chronic kidney disease with heart failure and with stage 5 chronic kidney disease, or end stage renal disease; I50.22 Chronic systolic (congestive) heart failure; E11.52 Type 2 diabetes mellitus with diabetic peripheral angiopathy with gangrene; T87.40 Infection of amputation stump, unspecified extremity; E87.5 Hyperkalemia; S81.802A Unspecified open wound, left lower leg, initial encounter; E11.22 Type 2 diabetes mellitus with diabetic chronic kidney disease; I25.10 Atherosclerotic heart disease of native coronary artery without angina pectoris; N48.29 Other inflammatory disorders of penis; E78.5 Hyperlipidemia, unspecified; L40.9 Psoriasis, unspecified; E11.649 Type 2 diabetes mellitus with hypoglycemia without coma; H54.62 Unqualified visual loss, left eye, normal vision right eye; E83.59 Other disorders of calcium metabolism; I44.0 Atrioventricular block, first degree; I08.1 Rheumatic disorders of both mitral and tricuspid valves; E11.36 Type 2 diabetes mellitus with diabetic cataract; C60.9 Malignant neoplasm of penis, unspecified; D64.9 Anemia, unspecified; Y83.5 Amputation of limb(s) as the cause of abnormal reaction of the patient, or of later complication, without mention of misadventure at the time of the procedure; E11.21 Type 2 diabetes mellitus with diabetic nephropathy; X58.XXXA Exposure to other specified factors, initial encounter; E83.39 Other disorders of phosphorus metabolism; I25.5 Ischemic cardiomyopathy; Z99.2 Dependence on renal dialysis; Z99.3 Dependence on wheelchair; Z95.1 Presence of aortocoronary bypass graft; Z91.19 Patient's noncompliance with other medical treatment and regimen; Z89.512 Acquired absence of left leg below knee; Z89.511 Acquired absence of right leg below knee; Z83.3 Family history of diabetes mellitus; Z82.49 Family history of ischemic heart disease and other diseases of the circulatory system; Z79.899 Other long term (current) drug therapy; Z79.82 Long term (current) use of aspirin; Z79.02 Long term (current) use of antithrombotics/antiplatelets; Z74.01 Bed confinement status; Z88.1 Allergy status to other antibiotic agents; Y93.89 Activity, other specified; Y92.89 Other specified places as the place of occurrence of the external cause; Y99.8 Other external cause status; Z20.822 Contact with and (suspected) exposure to COVID-19; Z88.2 Allergy status to sulfonamides
CPT/HCPCS: 36415; 71045; 73721; 80048; 80053; 80074; 80202; 82550; 82947; 82948; 83690; 83735; 83874; 83970; 84100; 84484; 85025; 87426; 90935; 93005; A9579; G0378; J0610; J1170; J1200; J1610; J1644; J1815; J2543; J3370; J3490; J7050; J7070; P9046; U0003

== ENCOUNTER 2020-05-04 22:50 | Inpatient (IN) | payer OTHER, MEDICARE ==
[~2020-05-04] VITALS: Ht 162.6 cm; Wt 66.0 kg
[~2020-05-04 22:50] MED LIST changes: +HYDR-4153 PO; +MELA5CAP PO; +TRAM50TA4 PO
[2020-05-04 23:14] LABS: EOSINOPHILS % (AUTO) 3.7 % (0.0-8.0); HEMATOCRIT 38.6 % (42-54); LYMPHOCYTES % (AUTO) 15.6 % (21.0-51.0); MEAN CORPUSCULAR HEMOGLOBIN 31.9 pg (27.0-33.0); MEAN CORPUSCULAR HGB CONC 33.2 g/dL (32.0-36.0); MEAN CORPUSCULAR VOLUME 96.3 fL (79-99); MONOCYTES % (AUTO) 9.9 % (3.0-13.0); NEUTROPHILS % (AUTO) 69.7 % (40.0-77.0); NUCLEATED RED BLOOD CELLS 0.3 % (0.0-0.19); PLATELET COUNT (AUTO) 110 K/uL (130-400); RED BLOOD CELL COUNT(AUTO) 4.01 MIL/uL (4.50-6.20); RED CELL DISTRIBUTION WIDTH 18.3 % (11.0-15.5)
[2020-05-04 23:22] LABS: CARBON DIOXIDE 32 mmol/L (21-32); CHLORIDE 96 mmol/L (101-111); CREATININE 3.7 mg/dL (0.5-1.5); GLOMERULAR FILTR. RATE CALC 17 mL/min (>60); GLUCOSE,RANDOM 146 mg/dL (70-105); POTASSIUM 4.8 mmol/L (3.5-5.1); SODIUM SERUM 137 mmol/L (136-145); UREA NITROGEN, BLOOD 33 mg/dL (7-18)
[2020-05-04 23:25] LABS: INR 1.32 (0.85-1.15)
[2020-05-04 23:26] LABS: PARTIAL THROMBOPLASTIN TIME 35.6 SEC (26.3-35.5)
[2020-05-04 23:27] LABS: ALANINE AMINOTRANSFERASE 18 U/L (12-78); ALBUMIN 2.7 g/dL (3.5-5.0); ASPARTATE AMINOTRANSFERASE 57 U/L (10-37); BILIRUBIN,TOTAL 2.8 mg/dL (0.2-1.0); TOTAL PROTEIN, SERUM 8.3 g/dL (6.0-8.3)
[2020-05-05] LABS: LIPASE < 50 U/L (114-286)
[2020-05-05 00:38] LABS: ABG BASE EXCESS 6.2 mmol/L (-2.0-3.0); ABG HCO3 30.4 mmol/L (21.0-28.0); ABG OXYGEN SATURATION 99.5 % (95.0-99.0); ABG PCO2 42 mmHg (35-48)
[2020-05-05] MEDS ORDERED: ASPIRIN 325 MG TABLET ONE (01:02)
[2020-05-05] MEDS ORDERED: ONDANSETRON 4MG INJ IV PRN (02:45)
[2020-05-05] MEDS ORDERED: GUAIFENESIN-DM 200/20 MG 10 ML PO PRN (02:45)
[2020-05-05] MEDS ORDERED: ACETAMINOPHEN 325 MG TAB PO PRN ×2 (02:45)
[2020-05-05] MEDS ORDERED: VANCOMYCIN PROTOCOL PER PHARMACY IV PRN (02:45)
[2020-05-05] MEDS ORDERED: LACTULOSE 20 GM/30 ML UDCUP PO PRN ×2 (02:45→05:30)
[2020-05-05] MEDS ORDERED: NITROGLYCERIN 0.4 MG SL TAB SL PRN (02:45)
[2020-05-05] MEDS ORDERED: MAG/ALUM/SIMETH 30 ML UDCUP PO PRN (02:45)
[2020-05-05] MEDS ORDERED: AZITHROMYCIN 500MG+NS 250ML 250 ML IV ONE (02:48)
[2020-05-05] MEDS ORDERED: CEFTRIAXONE 1G VIAL ONE (02:49)
[2020-05-05] MEDS ORDERED: PHARMACY COMMUNICATION MISC SCH (04:00)
[2020-05-05] MEDS ORDERED: VANCOMYCIN 1G/250ML KIT 250 ML IV ONE (04:54)
[2020-05-05] MEDS ORDERED: ZOSYN 3.375GM+NS 50ML 50 ML IV ONE ×3 (04:54→20:36)
[2020-05-05] MEDS ORDERED: HYDROMORPHONE 0.5 MG SYG (0.5MG/0.5ML) ONE ×2 (05:10→20:37)
[2020-05-05] MEDS ORDERED: ONDANSETRON 4MG INJ ONE (05:10)
[2020-05-05] MEDS ORDERED: TRAMADOL HCL 50 MG TABLET PO PRN (05:15)
[2020-05-05 05:29] LABS: HEMATOCRIT 34.6 % (42-54); MEAN CORPUSCULAR HEMOGLOBIN 31.9 pg (27.0-33.0); MEAN CORPUSCULAR HGB CONC 33.5 g/dL (32.0-36.0); MEAN CORPUSCULAR VOLUME 95.1 fL (79-99); RED BLOOD CELL COUNT(AUTO) 3.64 MIL/uL (4.50-6.20); RED CELL DISTRIBUTION WIDTH 17.9 % (11.0-15.5); WHITE BLOOD COUNT (AUTO) 7.3 K/uL (4.8-10.8)
[2020-05-05 05:37] LABS: CREATININE 3.7 mg/dL (0.5-1.5); POTASSIUM 4.5 mmol/L (3.5-5.1)
[2020-05-05 05:42] LABS: ALBUMIN 2.5 g/dL (3.5-5.0); BILIRUBIN,TOTAL 2.3 mg/dL (0.2-1.0); TOTAL PROTEIN, SERUM 7.5 g/dL (6.0-8.3)
[2020-05-05] MEDS ORDERED: COMPOUND IV REFRIGERATED 1 EACH IVSOLN MISC PRN (07:00)
[2020-05-05] MEDS ORDERED: HEPARIN 5,000 UNIT VIAL ONE ×2 (07:48→22:34)
[2020-05-05] MEDS ORDERED: DiphenhydrAMINE HCL 50 MG/ML VIAL ONE ×3 (07:48→21:06)
[2020-05-05] MEDS ORDERED: ASPIRIN 81MG CHEW TAB ONE (07:48)
[2020-05-05] MEDS ORDERED: SEVELAMER HCL 800 MG TABLET ONE (07:50)
[2020-05-05] MEDS ORDERED: CLOPIDOGREL 75MG TAB ONE (07:50)
[2020-05-05] MEDS ORDERED: HYDRALAZINE 25MG TABLET ONE (07:50)
[2020-05-05] MEDS ORDERED: PANTOPRAZOLE 40 MG TAB DR ONE (07:50)
[2020-05-05] MEDS ORDERED: METOPROLOL TARTRATE 25 MG TAB ONE (07:51)
[2020-05-05] MEDS ORDERED: LIDOCAINE/PRILOCAINE CREAM 5GM TUBE TP ONE (07:51)
[2020-05-05] MEDS ORDERED: HYDROMORPHONE 1 MG INJ ONE (10:37)
[2020-05-05] MEDS ORDERED: 0.9%NACL 50ML 50 ML IV ONE (10:50)
[2020-05-05] MEDS ORDERED: MIDODRINE HCL 5 MG TABLET ONE ×2 (13:51→20:37)
[2020-05-05] MEDS ORDERED: ATORVASTATIN 10 MG TABLET ONE (20:36)
[2020-05-05] MEDS: **HM** MELATONIN 5MG PO SCH (21:00)
[2020-05-05] MEDS: ATORVASTATIN 10 MG TABLET PO SCH (21:00)
[2020-05-06] MEDS ORDERED: HYDROMORPHONE 0.5 MG SYG (0.5MG/0.5ML) ONE ×4 (05:34→20:44)
[2020-05-06] MEDS ORDERED: DiphenhydrAMINE HCL 50 MG/ML VIAL ONE ×2 (05:34→11:50)
[2020-05-06 05:55] LABS: BASOPHILS % (AUTO) 1.4 % (0.0-5.0); EOSINOPHILS % (AUTO) 5.6 % (0.0-8.0); HEMATOCRIT 36.7 % (42-54); MEAN CORPUSCULAR HEMOGLOBIN 32.4 pg (27.0-33.0); MEAN CORPUSCULAR HGB CONC 33.2 g/dL (32.0-36.0); MEAN CORPUSCULAR VOLUME 97.3 fL (79-99); MONOCYTES % (AUTO) 17.1 % (3.0-13.0); NEUTROPHILS % (AUTO) 51.6 % (40.0-77.0); PLATELET COUNT (AUTO) 89 K/uL (130-400); RED BLOOD CELL COUNT(AUTO) 3.77 MIL/uL (4.50-6.20); WHITE BLOOD COUNT (AUTO) 6.9 K/uL (4.8-10.8)
[2020-05-06 06:24] LABS: ALBUMIN 2.4 g/dL (3.5-5.0); BILIRUBIN,TOTAL 2.6 mg/dL (0.2-1.0); CREATININE 4.2 mg/dL (0.5-1.5); POTASSIUM 5.4 mmol/L (3.5-5.1); TOTAL PROTEIN, SERUM 7.6 g/dL (6.0-8.3)
[2020-05-06] MEDS ORDERED: HYDRALAZINE 25MG TABLET ONE (08:02)
[2020-05-06] MEDS ORDERED: ASPIRIN 81MG CHEW TAB ONE (08:02)
[2020-05-06] MEDS ORDERED: SEVELAMER HCL 800 MG TABLET ONE ×2 (08:02→16:21)
[2020-05-06] MEDS ORDERED: ZOSYN 3.375GM+NS 50ML 50 ML IV ONE ×2 (08:03→12:58)
[2020-05-06] MEDS ORDERED: PANTOPRAZOLE 40 MG TAB DR ONE (08:03)
[2020-05-06] MEDS ORDERED: HEPARIN 5,000 UNIT VIAL ONE (08:03)
[2020-05-06] MEDS ORDERED: METOPROLOL TARTRATE 25 MG TAB ONE (08:03)
[2020-05-06] MEDS ORDERED: CLOPIDOGREL 75MG TAB ONE (08:03)
[2020-05-06] MEDS: ASPIRIN 81MG CHEW TAB PO SCH (09:00)
[2020-05-06] MEDS: PANTOPRAZOLE 40 MG TAB DR PO SCH (09:00)
[2020-05-06] MEDS: HEPARIN 5,000 UNIT VIAL SQ SCH ×2 (09:00→23:06)
[2020-05-06] MEDS: LIDOCAINE/PRILOCAINE CREAM 30 GM TUBE TP SCH (09:00)
[2020-05-06] MEDS: METOPROLOL TARTRATE 25 MG TAB PO SCH ×2 (09:00→20:50)
[2020-05-06] MEDS: HYDRALAZINE 25MG TABLET PO SCH ×2 (09:00→20:54)
[2020-05-06] MEDS: CLOPIDOGREL 75MG TAB PO SCH (09:00)
[2020-05-06] MEDS ORDERED: Vitamin B Complex/Vit C/Folic Acid ONE (09:22)
[2020-05-06] MEDS ORDERED: MIDODRINE HCL 5 MG TABLET ONE (11:48)
[2020-05-06] MEDS: ZOSYN 3.375GM+NS 50ML 50 ML IV SCH ×2 (13:00→20:53)
[2020-05-06] MEDS: ISOSORBIDE MONO 30MG SR TAB PO SCH (14:00)
[2020-05-06] MEDS ORDERED: ISOSORBIDE MONO 30MG SR TAB PO ONE (14:08)
[2020-05-06] MEDS: SEVELAMER HCL 800 MG TABLET PO SCH (17:00)
[2020-05-06] MEDS ORDERED: ONDANSETRON 4MG INJ ONE (17:30)
[2020-05-06 19:55] VITALS: BP 117/69
[2020-05-06] MEDS: DIPHENHYDRAMINE HCL 25 MG CAPSULE PO PRN (20:49)
[2020-05-06] MEDS: ATORVASTATIN 10 MG TABLET PO SCH (20:50)
[2020-05-06] MEDS: **HM** MELATONIN 5MG PO SCH (20:52)
[2020-05-06] MEDS ORDERED: SANTO TP (23:01)
[2020-05-06 23:57] VITALS: BP 104/70
[2020-05-07] MEDS ORDERED: HYDROMORPHONE 0.5 MG SYG (0.5MG/0.5ML) ONE ×3 (01:03→16:33)
[2020-05-07 04:00] VITALS: BP 115/55
[2020-05-07] MEDS: ZOSYN 3.375GM+NS 50ML 50 ML IV SCH ×3 (04:54→21:51)
[2020-05-07] MEDS: DiphenhydrAMINE HCL 50 MG/ML VIAL IV PRN (05:00)
[2020-05-07] MEDS: HYDROMORPHONE 1 MG INJ IVP PRN ×3 (05:04→16:42)
[2020-05-07 05:06] LABS: BASOPHILS % (AUTO) 1.5 % (0.0-5.0); EOSINOPHILS % (AUTO) 4.6 % (0.0-8.0); HEMATOCRIT 36.2 % (42-54); LYMPHOCYTES % (AUTO) 19.6 % (21.0-51.0); MEAN CORPUSCULAR HEMOGLOBIN 31.9 pg (27.0-33.0); MEAN CORPUSCULAR HGB CONC 32.6 g/dL (32.0-36.0); MEAN CORPUSCULAR VOLUME 97.8 fL (79-99); MONOCYTES % (AUTO) 14.2 % (3.0-13.0); NEUTROPHILS % (AUTO) 59.9 % (40.0-77.0); PLATELET COUNT (AUTO) 87 K/uL (130-400); WHITE BLOOD COUNT (AUTO) 6.5 K/uL (4.8-10.8)
[2020-05-07 05:33] LABS: ALBUMIN 2.3 g/dL (3.5-5.0); BILIRUBIN,TOTAL 2.5 mg/dL (0.2-1.0); MAGNESIUM 2.4 mg/dL (1.80-2.40); PHOSPHORUS 8.3 mg/dL (2.5-4.9); TOTAL PROTEIN, SERUM 7.4 g/dL (6.0-8.3)
[2020-05-07 05:49] LABS: POTASSIUM 6.1 mmol/L (3.5-5.1)
[2020-05-07] MEDS ORDERED: KAYEXALATE 15GM/60ML PO SCH (07:00)
[2020-05-07] MEDS: SEVELAMER HCL 800 MG TABLET PO SCH ×3 (08:00→15:39)
[2020-05-07 08:04] VITALS: BP 112/61
[2020-05-07] MEDS: HYDRALAZINE 25MG TABLET PO SCH ×2 (08:09→21:00)
[2020-05-07] MEDS: HEPARIN 5,000 UNIT VIAL SQ SCH (08:10)
[2020-05-07] MEDS ORDERED: VANCOMYCIN 1G 1.25 GM in 0.9% NACL 250ML 250 ML IV SCH (09:00)
[2020-05-07] MEDS: METOPROLOL TARTRATE 25 MG TAB PO SCH (09:00)
[2020-05-07] MEDS: LIDOCAINE/PRILOCAINE CREAM 30 GM TUBE TP SCH (09:00)
[2020-05-07] MEDS: ISOSORBIDE MONO 30MG SR TAB PO SCH (09:27)
[2020-05-07] MEDS: ASPIRIN 81MG CHEW TAB PO SCH (09:27)
[2020-05-07] MEDS: MIDODRINE HCL 5 MG TABLET PO SCH ×2 (09:28→13:36)
[2020-05-07] MEDS: PANTOPRAZOLE 40 MG TAB DR PO SCH (09:28)
[2020-05-07] MEDS: CLOPIDOGREL 75MG TAB PO SCH (09:28)
[2020-05-07] MEDS ORDERED: LIDOCAINE HCL-MPF 1% 2ML VIAL IJ PRN (10:45)
[2020-05-07] MEDS ORDERED: HEPARIN 5,000 UNIT VIAL IJ PRN ×2 (10:45)
[2020-05-07] MEDS ORDERED: NITROGLYCERIN 0.4 MG SL TAB SL PRN (10:45)
[2020-05-07] MEDS ORDERED: 0.9%NACL 1000ML 1,000 ML IV PRN (10:45)
[2020-05-07] MEDS ORDERED: 0.9%NACL 1000ML IV PRN (10:45)
[2020-05-07] MEDS ORDERED: ACETAMINOPHEN 325 MG TAB PO PRN (10:45)
[2020-05-07 11:25] VITALS: BP 135/75
[2020-05-07] MEDS: VANCOMYCIN 1G 1.25 GM in 0.9% NACL 250ML 250 ML IV SCH (13:32)
[2020-05-07] MEDS: HYDROXYZINE 25 MG TABLET PO PRN (13:33)
[2020-05-07] MEDS: DIPHENHYDRAMINE HCL 25 MG CAPSULE PO PRN (15:48)
[2020-05-07] MEDS: HYDROCORTISONE 1% CREAM 28G TP PRN (16:07)
[2020-05-07] MEDS: INSULIN HUMULIN R 100 UNIT/ML 3ML SQ SCH ×2 (16:30→21:00)
[2020-05-07 16:37] VITALS: BP 117/70
[2020-05-07 20:00] VITALS: BP 131/70
[2020-05-07] MEDS: **HM** MELATONIN 5MG PO SCH (21:00)
[2020-05-07 23:51] VITALS: BP 103/64
[2020-05-08] MEDS: MIDODRINE HCL 5 MG TABLET PO SCH ×4 (00:57→21:00)
[2020-05-08] MEDS: METOPROLOL TARTRATE 25 MG TAB PO SCH ×3 (00:57→21:00)
[2020-05-08] MEDS: ATORVASTATIN 10 MG TABLET PO SCH ×2 (00:57→21:58)
[2020-05-08] MEDS: DiphenhydrAMINE HCL 50 MG/ML VIAL IV PRN (01:05)
[2020-05-08] MEDS: HYDROMORPHONE 1 MG INJ IVP PRN ×3 (01:07→14:03)
[2020-05-08 04:00] VITALS: BP 115/60
[2020-05-08 06:08] LABS: BASOPHILS % (AUTO) 1.2 % (0.0-5.0); EOSINOPHILS % (AUTO) 2.8 % (0.0-8.0); HEMATOCRIT 35.7 % (42-54); LYMPHOCYTES % (AUTO) 19.3 % (21.0-51.0); MEAN CORPUSCULAR HEMOGLOBIN 31.5 pg (27.0-33.0); MEAN CORPUSCULAR HGB CONC 31.9 g/dL (32.0-36.0); MEAN CORPUSCULAR VOLUME 98.6 fL (79-99); MONOCYTES % (AUTO) 12.7 % (3.0-13.0); NEUTROPHILS % (AUTO) 63.7 % (40.0-77.0); PLATELET COUNT (AUTO) 79 K/uL (130-400); RED BLOOD CELL COUNT(AUTO) 3.62 MIL/uL (4.50-6.20); RED CELL DISTRIBUTION WIDTH 19.2 % (11.0-15.5); WHITE BLOOD COUNT (AUTO) 6.5 K/uL (4.8-10.8)
[2020-05-08] MEDS: ZOSYN 3.375GM+NS 50ML 50 ML IV SCH ×3 (06:20→21:57)
[2020-05-08] MEDS: INSULIN HUMULIN R 100 UNIT/ML 3ML SQ SCH ×4 (06:22→21:00)
[2020-05-08 06:42] LABS: ALBUMIN 2.3 g/dL (3.5-5.0); BILIRUBIN,TOTAL 2.6 mg/dL (0.2-1.0); CREATININE 3.4 mg/dL (0.5-1.5); POTASSIUM 4.3 mmol/L (3.5-5.1); TOTAL PROTEIN, SERUM 7.4 g/dL (6.0-8.3)
[2020-05-08] MEDS: SEVELAMER HCL 800 MG TABLET PO SCH ×4 (08:00→15:39)
[2020-05-08] MEDS ORDERED: HYDROMORPHONE 0.5 MG SYG (0.5MG/0.5ML) ONE ×2 (08:53→14:00)
[2020-05-08 08:57] VITALS: BP 108/70
[2020-05-08] MEDS: LIDOCAINE/PRILOCAINE CREAM 30 GM TUBE TP SCH (09:00)
[2020-05-08] MEDS: HYDRALAZINE 25MG TABLET PO SCH ×2 (09:00→21:00)
[2020-05-08] MEDS: HYDROXYZINE 25 MG TABLET PO PRN ×2 (09:45→14:01)
[2020-05-08] MEDS: HYDROCORTISONE 1% CREAM 28G TP PRN (09:45)
[2020-05-08] MEDS: ISOSORBIDE MONO 30MG SR TAB PO SCH (09:46)
[2020-05-08] MEDS: PANTOPRAZOLE 40 MG TAB DR PO SCH (09:48)
[2020-05-08] MEDS: CLOPIDOGREL 75MG TAB PO SCH (09:48)
[2020-05-08] MEDS: ASPIRIN 81MG CHEW TAB PO SCH (09:48)
[2020-05-08] MEDS: VANCOMYCIN 1G 1.25 GM in 0.9% NACL 250ML 250 ML IV SCH (09:56)
[2020-05-08 11:39] VITALS: BP 115/60
[2020-05-08 16:21] VITALS: BP 129/70
[2020-05-08 19:31] VITALS: BP 115/63
[2020-05-08] MEDS: **HM** MELATONIN 5MG PO SCH (21:00)
[2020-05-08 23:38] VITALS: BP 119/48
[2020-05-09 04:06] VITALS: BP 118/79
[2020-05-09 05:24] LABS: BASOPHILS % (AUTO) 1.4 % (0.0-5.0); EOSINOPHILS % (AUTO) 2.3 % (0.0-8.0); HEMATOCRIT 37.3 % (42-54); LYMPHOCYTES % (AUTO) 19.1 % (21.0-51.0); MEAN CORPUSCULAR HGB CONC 33.2 g/dL (32.0-36.0); MEAN CORPUSCULAR VOLUME 96.4 fL (79-99); MONOCYTES % (AUTO) 13.2 % (3.0-13.0); NEUTROPHILS % (AUTO) 63.6 % (40.0-77.0); PLATELET COUNT (AUTO) 92 K/uL (130-400); RED BLOOD CELL COUNT(AUTO) 3.87 MIL/uL (4.50-6.20); RED CELL DISTRIBUTION WIDTH 19.6 % (11.0-15.5); WHITE BLOOD COUNT (AUTO) 7.3 K/uL (4.8-10.8)
[2020-05-09 05:41] LABS: ALBUMIN 2.3 g/dL (3.5-5.0); BILIRUBIN,TOTAL 2.7 mg/dL (0.2-1.0); CREATININE 4.2 mg/dL (0.5-1.5); PHOSPHORUS 6.6 mg/dL (2.5-4.9); POTASSIUM 4.1 mmol/L (3.5-5.1); TOTAL PROTEIN, SERUM 7.6 g/dL (6.0-8.3)
[2020-05-09] MEDS: ZOSYN 3.375GM+NS 50ML 50 ML IV SCH ×2 (06:14→13:00)
[2020-05-09] MEDS: INSULIN HUMULIN R 100 UNIT/ML 3ML SQ SCH ×3 (06:21→16:17)
[2020-05-09] MEDS: HYDROXYZINE 25 MG TABLET PO PRN ×2 (06:27→18:49)
[2020-05-09] MEDS: SEVELAMER HCL 800 MG TABLET PO SCH ×3 (08:00→16:17)
[2020-05-09 08:46] VITALS: BP 114/67
[2020-05-09] MEDS: LIDOCAINE/PRILOCAINE CREAM 30 GM TUBE TP SCH (09:00)
[2020-05-09] MEDS: HYDRALAZINE 25MG TABLET PO SCH (09:00)
[2020-05-09] MEDS: METOPROLOL TARTRATE 25 MG TAB PO SCH (09:00)
[2020-05-09] MEDS ORDERED: HYDROMORPHONE 0.5 MG SYG (0.5MG/0.5ML) ONE ×3 (09:32→18:52)
[2020-05-09] MEDS: CLOPIDOGREL 75MG TAB PO SCH (09:36)
[2020-05-09] MEDS: MIDODRINE HCL 5 MG TABLET PO SCH ×2 (09:36→14:00)
[2020-05-09] MEDS: HYDROMORPHONE 1 MG INJ IVP PRN ×3 (09:36→19:17)
[2020-05-09] MEDS: ASPIRIN 81MG CHEW TAB PO SCH (09:37)
[2020-05-09] MEDS: ISOSORBIDE MONO 30MG SR TAB PO SCH (09:37)
[2020-05-09] MEDS: PANTOPRAZOLE 40 MG TAB DR PO SCH (09:37)
[2020-05-09] MEDS: HYDROCORTISONE 1% CREAM 28G TP PRN (10:29)
[2020-05-09] MEDS: DIPHENHYDRAMINE HCL 25 MG CAPSULE PO PRN (10:29)
[2020-05-09 11:08] VITALS: BP 124/69
[2020-05-09] MEDS: VANCOMYCIN 1G 1.25 GM in 0.9% NACL 250ML 250 ML IV SCH (14:14)
[2020-05-09] MEDS ORDERED: HONEY 1 APPL/ML TUBE TP ONE (16:21)
[2020-05-09 16:24] VITALS: BP 124/71
[2020-05-09] MEDS: DiphenhydrAMINE HCL 50 MG/ML VIAL IV PRN (17:09)
[2020-05-09 19:50] VITALS: BP 136/67
== END 2020-05-09 20:49 | disposition hospice, home (50) | DRG 177 ==
LOC: EDH 22:50 → OBSVTOIN 05-05 02:35 → EDHIP 05-05 02:35 → INTOOBSV 05-05 02:35 → 3AH 05-06 19:55
PROVIDERS: ADMIT Family Medicine; ATTEND Family Medicine
PROC: 5A1D70Z Performance of Urinary Filtration, Intermittent, Less than 6 Hours Per Day (ICD-10-PCS; principal; 2020-05-07)
PROC: 5A1D70Z Performance of Urinary Filtration, Intermittent, Less than 6 Hours Per Day (ICD-10-PCS; 2020-05-09)
DX: J15.6 Pneumonia due to other Gram-negative bacteria (principal); N18.6 End stage renal disease; T87.44 Infection of amputation stump, left lower extremity; I13.2 Hypertensive heart and chronic kidney disease with heart failure and with stage 5 chronic kidney disease, or end stage renal disease; L03.116 Cellulitis of left lower limb; E87.2 Acidosis; L97.929 Non-pressure chronic ulcer of unspecified part of left lower leg with unspecified severity; I50.22 Chronic systolic (congestive) heart failure; I24.8 Other forms of acute ischemic heart disease; G89.4 Chronic pain syndrome; E11.22 Type 2 diabetes mellitus with diabetic chronic kidney disease; N48.29 Other inflammatory disorders of penis; C60.9 Malignant neoplasm of penis, unspecified; Z51.5 Encounter for palliative care; E87.5 Hyperkalemia; E83.59 Other disorders of calcium metabolism; N48.5 Ulcer of penis; L40.9 Psoriasis, unspecified; I25.5 Ischemic cardiomyopathy; I25.10 Atherosclerotic heart disease of native coronary artery without angina pectoris; I07.1 Rheumatic tricuspid insufficiency; H54.62 Unqualified visual loss, left eye, normal vision right eye; E83.39 Other disorders of phosphorus metabolism; E78.5 Hyperlipidemia, unspecified; D64.9 Anemia, unspecified; I95.9 Hypotension, unspecified; R54 Age-related physical debility; R07.89 Other chest pain; Y83.5 Amputation of limb(s) as the cause of abnormal reaction of the patient, or of later complication, without mention of misadventure at the time of the procedure; R21 Rash and other nonspecific skin eruption; R77.8 Other specified abnormalities of plasma proteins; E11.51 Type 2 diabetes mellitus with diabetic peripheral angiopathy without gangrene; S81.802A Unspecified open wound, left lower leg, initial encounter; X58.XXXA Exposure to other specified factors, initial encounter; Z20.822 Contact with and (suspected) exposure to COVID-19; Z95.1 Presence of aortocoronary bypass graft; Z91.19 Patient's noncompliance with other medical treatment and regimen; Z86.19 Personal history of other infectious and parasitic diseases; Z85.49 Personal history of malignant neoplasm of other male genital organs; Z99.2 Dependence on renal dialysis; Z83.3 Family history of diabetes mellitus; Z82.49 Family history of ischemic heart disease and other diseases of the circulatory system; Z79.899 Other long term (current) drug therapy; I25.2 Old myocardial infarction; Z88.1 Allergy status to other antibiotic agents; Z88.2 Allergy status to sulfonamides; Z79.82 Long term (current) use of aspirin; Z89.512 Acquired absence of left leg below knee; Y93.89 Activity, other specified; Y92.89 Other specified places as the place of occurrence of the external cause; Y99.8 Other external cause status; R07.9 Chest pain, unspecified
CPT/HCPCS: 36415; 36600; 71045; 80053; 82803; 82948; 83605; 83690; 83735; 83880; 84100; 84484; 85025; 85027; 85610; 85730; 87040; 87426; 90935; 93005; 99291; G0378; J0456; J0696; J1170; J1200; J1644; J2405; J2543; J3370; J7050; Q0163; U0003